=== PATIENT | female | born 1975 | race Caucasian/White ===

== ENCOUNTER 2016-04-08 18:21 | Emergency (ER) | payer OTHER ==
--- NOTE | 2016-04-08 20:00 | DIAGNOSTIC IMAGING REPORT ---
PROCEDURE: XR ABD SERIES 2V ABD/1V CHEST INDICATION: ABDOMINAL PAIN TECHNIQUE: AP supine and upright views of the abdomen with single view of the chest. COMPARISON: Abdomen 02/08/2015 and Chest x-ray 06/02/2013 FINDINGS: CHEST: Lungs are clear. Normal cardiovascular structures. Bony thorax is unremarkable. ABDOMEN: Bowel gas pattern is normal. Moderate stool. Cholecystectomy. No soft-tissue masses or unusual calcifications. No evidence of free air. Osseous structures are unremarkable. IMPRESSION: 1. Moderate stool 2. Cholecystectomy 3. Negative chest
--- NOTE | 2016-04-08 20:57 | ED NURSING NOTES ---
Clinical Report - Nurses [facility] [address] [place] [address] 04/08/2016 18:22 Patient: SIENNA BORRERO TRIAGE Triage time 1835 PM. Acuity: LEVEL 3. Chief Complaint: ABDOMINAL PAIN and NAUSEA. Alert. No acute distress. SEPSIS SCREEN: Sepsis Screen. Negative (no infection suspected/documented). CIELO COMA SCORE: Bledsoe Coma Scale: 15- eyes open spontaneously (4); best verbal response- oriented x 4 (5); best motor response- obeys commands (6). --18:42 Kinza Byrnes R.N. 18:30 04/08/16. BP: 157/89. HR: 115. RR: 28 (labored). O2 saturation: 100% on room air. Temp: 98.5 F. Pain level now: 12/24. --18:42 Kinza Byrnes R.N. Weight: 136 kg stated. Height/Length: 66 inches Per Patient. BMI: 48.4. --18:36 Kinza Byrnes R.N. Medications Benadryl Oral 25 mg, PRN. Control Pills. Cozaar Oral 25 mg, daily. Cymbalta Oral. Fenayl fibrate 160mg daily. Fish Oil. Lantus Subcutaneous 30 units, at bedtime. Magnesium Oral. MetFORMIN HCl Oral 500 mg, 4x a day. Metoprolol Tartrate Oral 25 mg, daily. Pantoprazole Sodium Oral. Pravastatin Sodium Oral, 2 at bedtime. Roxaxin 500-1000? . Vit d. Vits multi . --18:30 Kinza Byrnes R.N. OxyCONTIN Oral. --18:47 Kinza Byrnes R.N. The following entry was struck by Kinza Byrnes R.N., 18:47 (04/08/16) Reason - other. <<STRICKEN ENTRY-- Melatonin Oral. --18:30 Kinza Byrnes R.N. --END STRIKE>>. Medication/allergy information source: the patient. --18:42 Kinza Byrnes R.N. Allergies Amitriptyline. Gabapentin. Gluten. Ibuprofen. Lyrica. Sulfa Antibiotics. Vicodin. --18:30 Kinza Byrnes R.N. History Arrived by private vehicle. Historian: patient. Accompanied by family. ( Pt states that around 4 pm today pain initiated suddenly on RUQ which now radiates to left upper quadrant with SOB/dizziness due to pain, pt states reminds her "pancreatitis" Spoke to [facility] who told them to come to ED for further evaluation.). This started today. Onset was abrupt. (415 PM). She has had nausea and abdominal pain. No vomiting. Last oral intake by patient was (4pm today to drink, and at 11pm to eat). Treatment FORENSIC ENGINEER: None. PAST MEDICAL HX: Immunizations: up-to-date. The patient has had a hysterectomy. SOCIAL HX: Former smoker (quit 3 years ago). Alcohol use. Patient is a recovering alcoholic. History of drug use. Is a recovering addict. No recent travel. No infectious disease exposure. No known contact with a sick individual. ABUSE ASSESSMENT: No report of abuse. SELF HARM ASSESSMENT: A self harm assessment was performed. The patient answered "no" to the question "Do you have thoughts of harming or killing yourself?" and "Have you recently had thoughts about harming or killing others?". FALL RISK ASSESSMENT: Fall risk assessment completed. No fall risk identified. NUTRITIONAL RISK ASSESSMENT: The nutritional risk assessment revealed no deficiencies. FUNCTIONAL ASSESSMENT: Functional assessment: no impairments noted. LEARNING NEEDS ASSESSMENT: The learning needs assessment revealed no barriers. SKIN INTEGRITY ASSESSMENT: Skin integrity risk assessment completed. No skin integrity risk identified. --18:42 Kinza Byrnes R.N. PROBLEMS: Nail Avulsion. Subungual Hematoma. Crush Injury. TMJ Syndrome. Lumbar Radiculopathy. Gastritis. Gastroenteritis. Vomiting. Abdominal Pain. Gallstone(s). Pancreatitis. Headache. Hypertension. Sinusitis. Arthritis. Back Injury. Obesity. Gastroesophageal Reflux Disease. Lifestyle / Substance Problems. UTI - Urinary Tract Infection. Pneumonia. Changed Mental Status. Burn. Tetanus Status. Back Pain. Hypercholesterolemia. Diabetes Mellitus. Immunizations. LNMP - Last Normal Menstrual Period. --18:31 Kinza Byrnes R.N. Allergic Reaction [RuleOut]. --18:31 Kinza Byrnes R.N. ADDITIONAL SURGERIES: Adenoidectomy. Back Surgery. Cholecystectomy. . Hysterectomy. Knee. Knee Surgery. Lt wrist surgery. Oophorectomy. Rt wrist surgery. Tympanostomy Tubes. --18:31 Kinza Byrnes R.N. Interventions ID band on patient. --18:42 Kinza Byrnes R.N. PHYSICAL ASSESSMENT To room via wheelchair. GENERAL / NEURO / PSYCH: Alert. Oriented X 4. Appears in no acute distress. Appears in pain and anxious. HEENT: Mucous membranes are pink. RESPIRATORY: Respirations not labored. Breath sounds within normal limits. CVS: Capillary refill less than 2 seconds. GI / : The patient has had nausea. Abdomen soft and nontender. Abdominal tenderness in the upper abdomen, right upper quadrant, epigastric area and left upper quadrant. Bowel sounds within normal limits. SKIN: Skin is warm and dry. --18:44 Kinza Byrnes R.N. NURSING PROGRESS NOTES The initial plan of care for this patient has been created This plan of care was discussed with the patient. Patient gowned. Reassurance given. Two patient identifiers checked. Call light placed in reach. Side rails up. Brakes of bed on. --18:44 Kinza Byrnes R.N. ( RT on bedside for Blood gas blood draw). --19:03 Brielle Juarez EKG time: (19:01). EKG was performed by a tech and shown to the ED physician. --19:04 GeoffBrielle zurita 19:08 04/08/2016 Site #1 started via IV in the right forearm with an 22g angiocath; four attempts. Saline lock flushed with 10 mL saline. --19:13 Kinza Byrnes R.N. Reassurance given. Patient ID band checked for patient name, birthdate and medical record number: patient confirmed. Instructions provided to collect clean catch urine and patient verbalized understanding. Clean catch urine collected with return of yellow-colored clear urine; sample sent to lab for urinalysis. Specimen labeled in the presence of the patient. ( Difficult stick, only red top and purple top collected, lab called.). Care transferred and report given (JIMBO Perez). --19:16 Kinza Byrnes R.N. 19:16 04/08/2016 Started bag #1 1000 mL IV Fluids IV NS (Saline); at 1000 mL/hr over 1 hour(s) via site #1 --19:16 Chris Sheikh R.N. 19:19 04/08/2016 Zofran (Ondansetron HCl) IVP 4 mg given over 2 minute(s) via site #1. Allergies verified and confirmed 5 rights. IV patency established. IV site checked: no pain, redness, or swelling. IV flushed thoroughly pre- and post-medication administration. --19:19 Chris Sheikh R.N. 19:21 04/08/2016 Dilaudid (HYDROmorphone HCl PF) IVP 1 mg given over 2 minute(s) via site #1. Allergies verified, confirmed 5 rights and sedative warning given to the patient. IV patency established. IV site checked: no pain, redness, or swelling. IV flushed thoroughly pre- and post-medication administration. --19:21 Chris Sheikh R.N. 19:22. Patient transported to radiology by stretcher with tech. --19:22 Chris Sheikh R.N. 19:30. Patient returned from radiology by stretcher with tech. --19:30 Chris Sheikh R.N. Checked patient name and birthdate: patient confirmed. Blood samples drawn from the right hand with syringe and 23g butterfly by [employer] per protocol ; labeled in presence of the patient and sent to lab: ronald best. --20:12 Leeanne Naranjo 20:25. Patient ID band checked for patient name and birthdate: patient confirmed. Flu swab obtained by RN via nasal pharyngeal swab. Labeled in the presence of the patient and sent to lab. ( First contact with pt. Flu swab obtained and sent to lab. Pt assisted to bathroom via w/c, some increase in SOB noted with activity . states pain is worth with activity "hurts under the right breast really bad" also still feeling nauseated ERPA notified). --20:34 Laurence Clark R.N. Critical value relayed to ED by Bryan certified nuclear medicine technologist. Critical value received by Chris Singh EDJIMBO. Positive for Influenza A. Critical value read back. Verified lab result and patient ID. --20:52 Chris Sheikh R.N. 20:56 04/08/2016 Zofran (Ondansetron HCl) IVP 4 mg given over 2 minute(s) via site #1. Allergies verified and confirmed 5 rights. IV patency established. IV site checked: no pain, redness, or swelling. IV flushed thoroughly pre- and post-medication administration. --20:56 Chris Sheikh R.N. 20:59 Tamiflu 75mg PO given. --21:00 Chris Sheikh R.N. 21:22 IV fluids placed on IV pump. --21:26 Chris Sheikh R.N. 21:35 04/08/2016 Dilaudid (HYDROmorphone HCl PF) IVP 1 mg given over 2 minute(s) via site #1. Allergies verified, confirmed 5 rights and sedative warning given to the patient. IV patency established. IV site checked: no pain, redness, or swelling. IV flushed thoroughly pre- and post-medication administration. --21:35 Chris Sheikh R.N. 21:39 04/08/2016 IV Fluids IV NS Bag Change: bag #1 infused. Total amount infused: 1000. STARTED bag #2 at 1000 mL/hr via IV pump. IV patency established. IV site checked: no pain, redness, or swelling. IV flushed thoroughly. --21:39 Chris Sheikh R.N. 22:14 04/08/2016 Dilaudid (HYDROmorphone HCl PF) IVP 1 mg given over 2 minute(s) via site #1. Allergies verified and confirmed 5 rights. IV patency established. IV site checked: no pain, redness, or swelling. IV flushed thoroughly pre- and post-medication administration. --22:14 Chris Sheikh R.N. 22:45 04/08/2016 IV Fluids IV NS Discontinued: bag #2 infused upon discharge. Total amount infused: 1000 mL. IV patency established. IV site checked: no pain, redness, or swelling. IV flushed thoroughly. --22:45 Chris Sheikh R.N. 22:50. The patient is calm and resting quietly. SKIN: Skin is warm and dry. Skin color within normal limits. --22:52 Chris Sheikh R.N. DISPOSITION / DISCHARGE 20:58 04/08/16. BP: 126/63. HR: 114. RR: 17. O2 saturation: 97%. Pain level now: 06/24. --22:43 Chris Sheikh R.N. Condition at departure: stable. No learning barriers present. Discharge instructions provided and reviewed with the patient and spouse. Reviewed medication(s) side effects, precautions, dosing and course information. Patient and spouse verbalized understanding. Written instructions provided in Telugu. The patient was discharged home and accompanied by spouse. She left the Emergency Department ambulatory and via private vehicle. Spouse driving. FALL RISK ASSESSMENT: Fall risk assessment completed. No fall risk identified. --22:43 Chris Sheikh R.N. 21:00 Patient receiving further treatment due to pt vitals. --22:43 Chris hSeikh R.N. 22:43 04/08/16. BP: 134/65. HR: 112. RR: 16. O2 saturation: 94% on room air. Pain level now: 06/24. --22:45 Chris Sheikh R.N. ( ED L[facility] [place] aware of pt pulse rate). --22:45 Chris Sheikh R.N. 22:46 04/08/2016 Site #1 removed upon discharge. Catheter intact. Bandage applied. --22:52 Chris Sheikh R.N. Departure time: 22:53. --22:53 Chris Sheikh R.N. Locked/Released at 04/08/2016 22:53 by Chris Sheikh R.N.
--- NOTE | 2016-04-08 20:57 | ED ORDER SUMMARY ---
..... Patient: SIENNA BORRERO OrderSheet [facility] VisitID: [id number] [place] [address] 40y, F Registration Date/Time: 04/08/2016 ORDER SHEET Weight: 136.0 kg (stated) Allergies: Amitriptyline, Gabapentin, Gluten, Ibuprofen, Lyrica, Sulfa Antibiotics, Vicodin GENERAL ORDERS: UA-Culture if indicated Urgent (18:39 04/08/2016 JBoardley R.N. per protocol) (18:45 EHassan R.N.) Urine Urgent (18:39 04/08/2016 JBoardley R.N. per protocol) (18:45 EHassan R.N.) Cardiac Panel Stat (18:51 04/08/2016 EKoroleva P.A.-C) (Ack 18:56 RKaruga) (19:48 RKaruga) PTT Urgent (18:51 04/08/2016 EKoroleva P.A.-C) (Ack 18:56 RKaruga) (19:48 RKaruga) PT with INR Urgent (18:51 04/08/2016 EKoroleva P.A.-C) (Ack 18:56 RKaruga) (19:48 RKaruga) Amylase Urgent (18:51 04/08/2016 EKoroleva P.A.-C) (Ack 18:56 RKaruga) (19:48 RKaruga) Lipase Urgent (18:51 04/08/2016 EKoroleva P.A.-C) (Ack 18:56 RKaruga) (19:48 RKaruga) ABG (G) Urgent (18:51 04/08/2016 EKoroleva P.A.-C) (Ack 18:56 RKaruga) (19:12 EHassan R.N.) EKG - ER Stat (18:51 04/08/2016 EKoroleva P.A.-C) (19:01 RKaruga) Abd Series 2V Abd/1V Chest Urgent (18:51 04/08/2016 EKoroleva P.A.-C) (Ack 18:56 RKaruga) (19:38 MCampbell) Rapid Influenza Screen (Nasal Pharyngeal) (n) Urgent (19:57 04/08/2016 EKoroleva P.A.-C) (k 19:59 [facility]) (20:35 DDean R.N.) - (tamiflu 75 mg po once) (20:55 04/08/2016 EKoroleva P.A.-C) (20:59 JQuivey R.N.) MEDICATION ORDERS: IV FLUIDS: IV NS : initial bolus 1000 mL (1000 mL/hr), then 1000 mL/hr for X1 (NOW); Srinivasan (18:50 04/08/2016 EKoroleva P.A.-C) (19:16 JQuivey R.N.) Dilaudid IV 1 mg (may repeat 1 mg in 15 mins from first dose, total 2 MG) (18:51 04/08/2016 EKoroleva P.A.-C) (19:21 JQuivey R.N.) Zofran IV 4 mg (NOW) (19:18 04/08/2016 JQuivey R.N. per protocol) (19:19 JQuivey R.N.) Zofran IV 4 mg (NOW) (20:56 04/08/2016 JQuivey R.N. per protocol) (20:56 JQuivey R.N.) Dilaudid IV 1 mg (NOW) (22:14 04/08/2016 JQuivey R.N. verbal order read back to EKorolerosalio P.A.-C) (22:14 JQuivey R.N.) ORDER SHEET NOTES: [Electronically signed by Chris Sheikh R.N. (22:53 04/08/2016)] [Electronically signed by Heidi MesaATran-C (23:08 04/08/2016)] [Electronically locked/signed by Chris Sheikh R.N. (22:53 04/08/2016)]
--- NOTE | 2016-04-08 20:57 | ED ORDER SUMMARY ---
..... Patient: SIENNA BORRERO OrderSheet [facility] VisitID: [id number] [place] [address] 40y, F Registration Date/Time: 04/08/2016 ORDER SHEET Weight: 136.0 kg (stated) Allergies: Amitriptyline, Gabapentin, Gluten, Ibuprofen, Lyrica, Sulfa Antibiotics, Vicodin GENERAL ORDERS: UA-Culture if indicated Urgent (18:39 04/08/2016 JBoardley R.N. per protocol) (18:45 EHassan R.N.) Urine Urgent (18:39 04/08/2016 JBoardley R.N. per protocol) (18:45 EHassan R.N.) Cardiac Panel Stat (18:51 04/08/2016 EKoroleva P.A.-C) (Ack 18:56 RKaruga) (19:48 RKaruga) PTT Urgent (18:51 04/08/2016 EKoroleva P.A.-C) (Ack 18:56 RKaruga) (19:48 RKaruga) PT with INR Urgent (18:51 04/08/2016 EKoroleva P.A.-C) (Ack 18:56 RKaruga) (19:48 RKaruga) Amylase Urgent (18:51 04/08/2016 EKoroleva P.A.-C) (Ack 18:56 RKaruga) (19:48 RKaruga) Lipase Urgent (18:51 04/08/2016 EKoroleva P.A.-C) (Ack 18:56 RKaruga) (19:48 RKaruga) ABG (G) Urgent (18:51 04/08/2016 EKoroleva P.A.-C) (Ack 18:56 RKaruga) (19:12 EHassan R.N.) EKG - ER Stat (18:51 04/08/2016 EKoroleva P.A.-C) (19:01 RKaruga) Abd Series 2V Abd/1V Chest Urgent (18:51 04/08/2016 EKoroleva P.A.-C) (Ack 18:56 RKaruga) (19:38 MCampbell) Rapid Influenza Screen (Nasal Pharyngeal) (n) Urgent (19:57 04/08/2016 EKoroleva P.A.-C) (k 19:59 [facility]) (20:35 DDean R.N.) - (tamiflu 75 mg po once) (20:55 04/08/2016 EKoroleva P.A.-C) (20:59 JQuivey R.N.) MEDICATION ORDERS: IV FLUIDS: IV NS : initial bolus 1000 mL (1000 mL/hr), then 1000 mL/hr for X1 (NOW); Srinivsaan (18:50 04/08/2016 EKoroleva P.A.-C) (19:16 JQuivey R.N.) Dilaudid IV 1 mg (may repeat 1 mg in 15 mins from first dose, total 2 MG) (18:51 04/08/2016 EKoroleva P.A.-C) (19:21 JQuivey R.N.) Zofran IV 4 mg (NOW) (19:18 04/08/2016 JQuivey R.N. per protocol) (19:19 JQuivey R.N.) Zofran IV 4 mg (NOW) (20:56 04/08/2016 JQuivey R.N. per protocol) (20:56 JQuivey R.N.) Dilaudid IV 1 mg (NOW) (22:14 04/08/2016 JQuivey R.N. verbal order read back to EKorolerosalio P.A.-C) (22:14 JQuivey R.N.) ORDER SHEET NOTES: [Electronically signed by Chris Sheikh R.N. (22:53 04/08/2016)] [Electronically signed by Heidi MesaATran-C (23:08 04/08/2016)] [Electronically locked/signed by Chris Sheikh R.N. (22:53 04/08/2016)]
--- NOTE | 2016-04-08 20:57 | ED CLINICAL REPORT ---
Clinical Report - Physicians/Mid Levels [facility] [address] [place] [address] 04/08/2016 18:22 [id number] Time Seen: 19:47 Apr 08 2016. Arrived- By private vehicle. Historian- patient. HISTORY OF PRESENT ILLNESS Chief Complaint: ABDOMINAL PAIN. This started today and is still present. It is described as "pain" and it is described as located in the upper abdomen and in the left abdomen. The patient has had nausea and loss of appetite. No vomiting. (abdominal pain prior to arrival, with nausea no emesis. No fevers, no shortness of breath. No back pain. Glucose has been under control recently. History of similar pain with pancreatitis.). REVIEW OF SYSTEMS No constipation, black stools, hematemesis, difficulty with urination or urinary frequency. No fever, headache, sore throat, chest pain or difficulty breathing. No chills. All systems otherwise negative, except as recorded above. SOCIAL HISTORY Former smoker. Alcohol use. Patient is a recovering alcoholic. History of drug use. Is a recovering addict. ADDITIONAL NOTES The nursing notes have been reviewed. PHYSICAL EXAM Vital Signs: 04/08/2016 18:30 BP: 157/89. HR: 115. RR: 28. O2 saturation: 100%. Temp: 98.5 F. Pain level now: 10/10. Appearance: Alert. ENT: Ears normal. Nose normal. Neck: Normal inspection. Neck supple. No carotid bruit or lymphadenopathy. CVS: Tachycardia. Heart sounds normal. Respiratory: No respiratory distress. No respiratory distress. Breath sounds normal. Chest nontender. Abdomen: Soft and nontender. Bowel sounds normal. No abdominal tenderness or rebound tenderness. Skin: Skin warm. Normal skin color. Neuro: Oriented X 3. No motor deficit. LABS, X-RAYS, AND EKG EKG: EKG time: (1900). No acute process. No acute ischemia. Normal EKG. Rate: 98. Normal P waves. Normal DEWEY. Normal QRS complex. Normal axis. Normal ST and T waves and QT. The study has been interpreted contemporaneously. The study has been independently viewed by me. The EKG appears to be a good tracing. KUB: (IMPRESSION: 1. Moderate stool 2. Cholecystectomy 3. Negative chest Electronically Final signed by:Jun Quinteros MD 04/08/2016 8:00:31 PM). Laboratory Tests: UA-Culture if indicated: (NAOMI: 04/08/2016 18:35) ( [facility]08[facility] 18:57) Final results Test Result Flag Units (Reference) URINE COLOR YELLOW URINE APPEARANCE CLEAR URINE GLUCOSE 2+ (NEGATIVE) URINE BILIRUBIN NEGATIVE (NEGATIVE) URINE KETONE NEGATIVE (NEGATIVE) URINE SPECIFIC GRAVITY 1.010 (1.010-1.030) URINE PH 6.0 (5.0-8.0) URINE PROTEIN NEGATIVE (NEGATIVE) URINE UROBILINOGEN 0.2 EU/dL (0.2-1.0) URINE NITRITE NEGATIVE (NEGATIVE) URINE BLOOD NEGATIVE (NEGATIVE) URINE LEUK ESTERASE NEGATIVE (NEGATIVE) URINE RBC 0-1 rbc/hpf (0-1) URINE WBC 1-3 wbc/hpf (0-1) URINE EPITHELIAL CELLS 3-5 EPI/hpf (0-5) URINE BACTERIA TRACE (<1+) (NONE SEEN) URINE COMMENT CULT NOT INDICATED URINE CULTURES ARE SET-UP BASED ON THE FOLLOWING CRITERIA:POSITIVE NITRITEPOSITIVE LEUKOCYTE ESTERASEGREATER THAN 10 WHITE BLOOD CELLSMODERATE (2+) OR GREATER BACTERIA Urine: (NAOMI: 04/08/2016 18:35) ( [facility] 04/08/2016 18:47) Final results Test Result Flag Units (Reference) URINE NEGATIVE CBC w Diff: (NAOMI: 04/08/2016 19:10) ( [facility] 04/08/2016 19:22) Final results Test Result Flag Units (Reference) WHITE BLOOD COUNT 13.1 H K/uL (4.5-11.5) RED BLOOD COUNT 4.06 M/uL (4.00-5.20) HEMOGLOBIN 12.6 gm/dL (12.0-16.0) HEMATOCRIT 38.1 % (36.0-46.0) MEAN CELL VOLUME 94 fL (80-100) MEAN CORPUSCULAR HGB 31 pg (26-34) MEAN CORPUSCULAR HGB CONC 33 g/dL (31-37) RED CELL DISTRIBUTION WIDTH 13.5 % (11.6-14.8) PLATELET COUNT 363 K/uL (150-400) NEUTROPHIL % 80.4 H % (50-75) LYMPH % 14.9 L % (25-40) MONO % 3.6 % (3-14) EOSINOPHIL % 0 % (0-4) BASOPHIL % 1.1 % (0-2) PT with INR: (NAOMI: 04/08/2016 19:46) ( [facility] 04/08/2016 20:24) Final results Test Result Flag Units (Reference) INR 1.0 (0.8-1.2) Low Intensity Therapy: INR 1.5-2.0 PT range 18.5-23.1Mod.Intensity Therapy: INR 2.0-3.0 PT range 23.1-31.5High Intensity Therapy: INR 2.5-3.5 PT range 27.4-35.5High Intensity Therapy 2: INR 3.0-4.0 PT range 31.5-39.3 APTT 26 SECONDS (24-34) CHEM 13 PANEL: (NAOMI: 04/08/2016 19:10) ( [facility] 04/08/2016 19:43) Final results Test Result Flag Units (Reference) GLUCOSE 164 H mg/dL (70-110) BUN 14 mg/dL (7-18) CREATININE 0.9 mg/dL (0.6-1.3) Estimated GFR >60 mL/min Estimated GFR- >60 mL/min Note: Persistent reduction over 3 months in eGFR<60 mL/min/1.73 m2 defines CKD. Patients with eGFR values>=60 mL/min/1.73 m2 may also have CKD if evidence ofpersistent proteinuria. Additional information may be foundat www.kidney.org. SODIUM 140 mmol/L (136-145) POTASSIUM 4.0 mmol/L (3.5-5.1) CHLORIDE 102 mmol/L (98-107) CARBON DIOXIDE 24 mmol/L (21-32) CALCIUM 10.4 H mg/dL (8.5-10.1) TOTAL PROTEIN 7.1 g/dL (6.4-8.2) ALBUMIN 3.6 g/dL (3.3-5.0) BILIRUBIN, TOTAL 0.2 mg/dL (0.0-1.0) ALKALINE PHOSPHATASE 46 U/L (46-116) AST (SGOT) 28 U/L (15-37) ALT (SGPT) 39 U/L (12-78) MAGNESIUM 1.4 L mg/dL (1.8-2.4) LIPASE 72 L U/L (73-393) AMYLASE 20 L U/L (25-115) CPK 102 U/L (24-260) TROPONIN I <0.05 ng/mL (0.00-1.5) TROPONIN REFERENCE RANGE:<0.1 NEGATIVE0.1-1.5 INDETERMINANT>1.5 POSITIVE ABG: (NAOMI: 04/08/2016 18:51) ( [facility] 04/08/2016 19:15) IP Test Result Flag Units (Reference) ARTERIAL BLOOD GAS pH 7.51 H (7.35-7.45) ABG PCO2 28.4 L mmHg (35-45) ABG PO2 91.0 mmHg (80.0-100.0) ABG BASE EXCESS 0.1 H mmol/L (-6.0--6.0) ABG HCO3 22.8 mmol/L (20.0-26.0) ABG TCO2 23.7 L mmol/L (24.0-30.0) ABG HbDuS5i 25.4 H mmHg (7.0-14.0) *NOTE: Normal rangeis based on aFIO2 of 21% ABG SAT O2 99.0 % (95.1-100.0) ABG TOTAL HEMOGLOBIN 12.0 g/dL (12.0-16.0) ABG CARBOXYHEMOGLOBIN 1.3 % (0.5-1.5) COMMENTS ROOM AIR Rapid Influenza Screen: (NAOMI: 04/08/2016 20:26) ( [facility] 04/08/2016 20:52) Final results SPECIMEN DESCRIPTION: N Test Result Flag Units (Reference) RAPID INFLUENZA SCREEN CALLED TO: Aneta JAEGER -- DATE: 04/08/16 INFLUENZA A: POSITIVE SCREEN FOR INFLUENZA A INFLUENZA B: NEGATIVE SCREEN FOR INFLUENZA B RAPID INFLUENZA "A" POSITIVE. . PROGRESS AND PROCEDURES Course of Care: Pt in the er stable. Pt with no fevers/ chills. Signs of acute influenza a. Given 2 L of ns. Pt is without any acute signs of dka. Pt with no signs of pancreatitis. EKG stable. CXR/ abd with no signs of acute surgical abdomen. 04/08/2016 22:43 BP: 134/65. HR: 112. RR: 16. O2 saturation: 94%. Pain level now: 4/10. Patient is stable. Physical exam findings are improved. Symptoms better. Patient/family counseled. Differential Diagnosis: I considered gastritis, acute appendicitis, mesenteric lymphadenitis, diverticulitis, small bowel obstruction, adhesions, biliary colic, hepatitis, splenic injury, splenic rupture, intraabdominal abscess, urinary tract infection, cystitis, prostatitis, ureterolithiasis, ovarian cyst, ovarian torsion, , ectopic , pelvic inflammatory disease, pelvic abscess, Mittelschmerz syndrome, endometriosis, abdominal aortic aneurysm, myocardial infarction and diabetic ketoacidosis as a possible cause of abdominal pain in this patient. This is a partial list of diagnoses considered. Disposition: Discharged. Condition: good. CLINICAL IMPRESSION Diabetes. Hypertension. Influenza type A. INSTRUCTIONS Drink plenty of fluids. Prescription Medications: Zofran (orally disintegrating tablets) 4 mg: take 1-2 orally every 6 hours as needed for nausea. Dispense fifteen (15). No refill. Substitution is permissible. Tamiflu 75 mg: take 1 capsule orally every 12 hours for 5 days. Dispense ten (10). No refills. Substitution is permissible. Follow-up: Follow up with your doctor in three days. (Electronically signed by Heidi Mesa P.A.-C 04/08/2016 23:08)
--- NOTE | 2016-04-08 23:09 | ED DISCHARGE INSTRUCTIONS ---
Patient: SIENNA BORRERO General Instructions [facility] VisitID: [id number] [place] [address] 40y, F Registration Date/Time: 04/08/2016 Diabetes. Hypertension. Influenza type A. INSTRUCTIONS Drink plenty of fluids. Prescription Medications: Zofran (orally disintegrating tablets) 4 mg: take 1-2 orally every 6 hours as needed for nausea. Dispense fifteen (15). No refill. Substitution is permissible. Tamiflu 75 mg: take 1 capsule orally every 12 hours for 5 days. Dispense ten (10). No refills. Substitution is permissible. Follow-up: Follow up with your doctor in three days. ADDITIONAL INFORMATION Influenza (Adult) Influenza, also called the flu, is a viral illness that affects the air passages of the lungs. It differs from the common cold. It is highly contagious. It may be spread through the air by coughing and sneezing or by direct contact (touching the sick person and then touching your own eyes, nose or mouth). Illness starts 1-3 days after exposure and lasts for 1-2 weeks. Antibiotics are usually not needed unless a complication appears (ear or sinus infection or pneumonia). Symptoms may be mild or severe and can include extreme tiredness (wanting to stay in bed all day), chills, fevers, muscle aching, soreness with eye movement, headache, and a dry, hacking cough. Home Care: Avoid exposure to cigarette smoke (yours or others). Tylenol or ibuprofen (Advil) will help fever, muscle aching, and headache. To avoid risk of liver injury, aspirin should not be used in children and teenagers under 18 with this illness. Nausea and loss of appetite are common. A light diet is recommended. Avoid dehydration by drinking 6-8 glasses of fluids per day (water, sport drinks like Gatorade, soft drinks without caffeine, juices, tea, soup, etc.). Extra fluids will also help loosen secretions in the nose and lungs. [id number] cold medicines will not shorten the duration of the illness but may be helpful for the following symptoms: cough (Robitussin DM); sore throat (Chloraseptic lozenges or spray); nasal and sinus congestion (Actifed or Sudafed). [NOTE: Do not use decongestants if you have high blood pressure.] Stay home until your fever has been gone for at least 24 hours (without the use of fever-reducing medications such as ibuprofen). Follow Up with your doctor or as directed by our staff if you are not improving over the next week. Note: If you are age 65 or older, or if you have chronic asthma or COPD, we recommend a pneumococcal vaccinationevery five years. All adults shouldreceive a yearly influenza vaccination every . Ask your doctor about this. Get Prompt Medical Attention if any of the following occur: Cough with lots of colored sputum (mucus) or blood in your sputum Chest pain, shortness of breath, wheezing, or difficulty breathing Severe headache, face, neck or ear pain New rash Fever of 100.4F (38C) oral or higher, not better with fever medication Confusion, behavior change or seizure Severe weakness or dizziness [place] Diet A bland diet is used for patients with an upset stomach. It consists of foods that are mild and easy to digest. It is better to eat small frequent meals rather than three large meals a day. BEVERAGES OK: Fruit juices, non-caffeinated teas and coffee, non-carbonated bhakta AVOID: Carbonated beverage, caffeinated tea and coffee, all alcoholic beverages BREAD OK: Refined white, wheat or rye bread, laura or soda crackers, Lou toast, plain rolls, bagels AVOID: Whole-grain bread CEREAL OK: Refined cereals: cooked or ready to eat AVOID: Whole grain cereals and granola, or those containing bran, seeds or nuts DESSERTS OK: Peanut butter and all others except those to "avoid" AVOID: Chocolate, cocoa, coconut, popcorn, nuts, seeds, jam, marmalade FRUITS OK: Canned, cooked, frozen or fresh fruits without seeds or tough skin AVOID: Olives, skin and seeds of fruit MEATS OK: All fresh or preserved meat, fish and fowl AVOID: Any that are prepared with those spices to "avoid" CHEESE & EGGS OK: Eggs, cottage cheese, cream cheese, other cheeses AVOID: All cheeses made with those spices to "avoid" POTATOES & PASTA OK: Potato, rice, macaroni, noodles, spaghetti AVOID: None SOUPS OK: All soups without heavy seasoning AVOID: Soups made with those spices to "avoid" VEGETABLES OK: Canned, cooked, fresh or frozen mildly flavored vegetables without seeds, skins or coarse fiber AVOID: Vegetables prepared with those spices to "avoid"; skin and seeds of vegetables and those with coarse fiber SPICES OK: Salt, lemon and [place] juice, vinegar, all extracts, peggy, cinnamon, thyme, mace, allspice, paprika AVOID: [place] powder, cloves, pepper, seed spices, garlic, gravy pickles, highly seasoned salad dressings Clear Liquid Diet Clear liquids are any liquid that you can see through as well as those that are very easy to digest. This is used while the body is recovering from irritation or infection of the stomach or intestinal tract. It may also be used before special procedures or surgery. This diet is to be used no more than three days. You may include the following items. Adults Adults should drink a total of 23 quarts of liquid per day. It may be easier to drink small frequent servings rather than a few large ones. Liquids can include: Fruit juices.Strained orange juice or lemonade (no pulp), apple, grape and cranberry juice, clear fruit drinks, sports drinks Beverages.Sport drinks, sodas, mineral water (plain or flavored), tea, black coffee, liquid gelatin (add twice the recommended amount of water) Soups.Clear broth, consomm, bouillon Desserts.Plain gelatin, popsicles, fruit juice bars Children Over 2 years old The following liquids are acceptable for children over age 2: Fruit juices.Strained orange juice or lemonade (no pulp), apple, grape and cranberry juice, clear fruit drinks Beverages. Sports drinks, sodas, mineral water (plain or flavored), tea, liquid gelatin (add twice the recommended amount of water) Soups. Clear broth, consomm, bouillon Desserts. Plain gelatin, popsicles, fruit juice bars Children under 2 years old Oral rehydration fluids such are available at drug stores and most grocery stores without a prescription. Ondansetron Hydrochloride Oral tablet What is this medicine? ONDANSETRON (on FAY se chidi) is used to treat nausea and vomiting caused by chemotherapy. It is also used to prevent or treat nausea and vomiting after surgery. How should I use this medicine? Take this medicine by mouth with a glass of water. Follow the directions on your prescription label. Take your doses at regular intervals. Do not take your medicine more often than directed. Talk to your bunch maker hand regarding the use of this medicine in children. Special care may be needed. What side effects may I notice from receiving this medicine? Side effects that you should report to your doctor or health home care scheduler as soon as possible: allergic reactions like skin rash, itching or hives, swelling of the face, lips or tongue breathing problems dizziness fast or irregular heartbeat feeling faint or lightheaded, falls fever and chills swelling of the hands or feet tightness in the chest Side effects that usually do not require medical attention (report to your doctor or health home care scheduler if they continue or are bothersome): constipation or diarrhea headache What may interact with this medicine? Do not take this medicine with any of the following medications: -apomorphine -cisapride -dofetilide -dronedarone -pimozide -thioridazine -ziprasidone This medicine may also interact with the following medications: -carbamazepine -phenytoin -rifampicin -tramadol -other medicines that prolong the QT interval (cause an abnormal heart rhythm) What if I miss a dose? If you miss a dose, take it as soon as you can. If it is almost time for your next dose, take only that dose. Do not take double or extra doses. Where should I keep my medicine? Keep out of the reach of children. Store between 2 and 30 degrees C (36 and 86 degrees F). Throw away any unused medicine after the expiration date. What should I tell my health care provider before I take this medicine? They need to know if you have any of these conditions: heart disease history of irregular heartbeat liver disease low levels of magnesium or potassium in the blood an unusual or allergic reaction to ondansetron, granisetron, other medicines, foods, dyes, or preservatives or trying to get breast-feeding What should I watch for while using this medicine? Check with your doctor or health home care scheduler right away if you have any sign of an allergic reaction. You have been given the following additional information: Influenza (Adult) Diet, [place]ora (Adult) Diet, Clear Liquid Ondansetron Hydrochloride Oral tablet (Electronically signed by Heidi Mesa P.A.-C 04/08/2016 23:08)
--- NOTE | 2016-04-08 23:09 | ED MED RECONCILIATION SUMMARY ---
Patient: SIENNA BORRERO Medication Reconciliation Report [facility] VisitID: [id number] [place] [address] 40y, F Registration Date/Time: 04/08/2016 Weight: 136.0 kg Height/Length: 66 in. BMI: 48.4 ALLERGIES: Amitriptyline, Gabapentin, Gluten, Ibuprofen, Lyrica, Sulfa Antibiotics, Vicodin The patient's Home Medications are listed below: THE FOLLOWING MEDICATIONS NEED TO BE RECONCILED: Benadryl Oral 25 mg, PRN Control Pills Cozaar Oral 25 mg, daily Cymbalta Oral Fenayl fibrate 160mg daily Fish Oil Lantus Subcutaneous 30 units, at bedtime Magnesium Oral MetFORMIN HCl Oral 500 mg, 4x a day Metoprolol Tartrate Oral 25 mg, daily OxyCONTIN Oral Pantoprazole Sodium Oral Pravastatin Sodium Oral, 2 at bedtime Roxaxin 500-1000? Vit d Vits multi The source(s) of the original Home Medication information: patient The following Medications were given to the patient in the Emergency Department: IV NS IV Fluids bolus 0, then 1000 mL/hr, administered: 04/08/2016 7:16:00 PM Zofran [IVP] IVP 4 mg, administered: 04/08/2016 7:19:00 PM Dilaudid [IVP] IVP 1 mg, administered: 04/08/2016 7:21:00 PM Zofran [IVP] IVP 4 mg, administered: 04/08/2016 8:56:00 PM Dilaudid [IVP] IVP 1 mg, administered: 04/08/2016 9:35:00 PM Dilaudid [IVP] IVP 1 mg, administered: 04/08/2016 10:14:00 PM The following Medications were prescribed to the patient: Zofran (orally disintegrating tablets) 4 mg: take 1-2 orally every 6 hours as needed for nausea. Dispense fifteen (15). No refill. Substitution is permissible. -- Heidi Mesa, P.A.-C Tamiflu 75 mg: take 1 capsule orally every 12 hours for 5 days. Dispense ten (10). No refills. Substitution is permissible. -- Heidi Mesa P.A.-C
--- NOTE | 2016-04-08 23:09 | ED MED RECONCILIATION SUMMARY ---
Patient: SIENNA BORRERO Medication Reconciliation Report [facility] VisitID: [id number] [place] [address] 40y, F Registration Date/Time: 04/08/2016 Weight: 136.0 kg Height/Length: 66 in. BMI: 48.4 ALLERGIES: Amitriptyline, Gabapentin, Gluten, Ibuprofen, Lyrica, Sulfa Antibiotics, Vicodin The patient's Home Medications are listed below: THE FOLLOWING MEDICATIONS NEED TO BE RECONCILED: Benadryl Oral 25 mg, PRN Control Pills Cozaar Oral 25 mg, daily Cymbalta Oral Fenayl fibrate 160mg daily Fish Oil Lantus Subcutaneous 30 units, at bedtime Magnesium Oral MetFORMIN HCl Oral 500 mg, 4x a day Metoprolol Tartrate Oral 25 mg, daily OxyCONTIN Oral Pantoprazole Sodium Oral Pravastatin Sodium Oral, 2 at bedtime Roxaxin 500-1000? Vit d Vits multi The source(s) of the original Home Medication information: patient The following Medications were given to the patient in the Emergency Department: IV NS IV Fluids bolus 0, then 1000 mL/hr, administered: 04/08/2016 7:16:00 PM Zofran [IVP] IVP 4 mg, administered: 04/08/2016 7:19:00 PM Dilaudid [IVP] IVP 1 mg, administered: 04/08/2016 7:21:00 PM Zofran [IVP] IVP 4 mg, administered: 04/08/2016 8:56:00 PM Dilaudid [IVP] IVP 1 mg, administered: 04/08/2016 9:35:00 PM Dilaudid [IVP] IVP 1 mg, administered: 04/08/2016 10:14:00 PM The following Medications were prescribed to the patient: Zofran (orally disintegrating tablets) 4 mg: take 1-2 orally every 6 hours as needed for nausea. Dispense fifteen (15). No refill. Substitution is permissible. -- Heidi Mesa, P.A.-C Tamiflu 75 mg: take 1 capsule orally every 12 hours for 5 days. Dispense ten (10). No refills. Substitution is permissible. -- Heidi Mesa P.A.-C
--- NOTE | 2016-04-08 23:09 | ED MAR SUMMARY ---
..... Medication Administration Record [facility] [address] [facility] [place] [address] Patient: SIENNA BORRERO Visit ID: [id number] 40y, F Weight: 136.0 kg Height/Length: 66 in BMI: 48.4 ALLERGIES: Amitriptyline, Gabapentin, Gluten, Ibuprofen, Lyrica, Sulfa Antibiotics, Vicodin Start 19:16 04/08/2016 Chris Sheikh R.N., Stop 22:45 04/08/2016 Chris Sheikh R.N. Medication Administered: IV NS (SALINE), Dose: IV Fluids over 1 hour(s), Rate: 1000 mL/hr, Dispensed: 1000 mL bag, Site: #1 right forearm. Medication Ordered: IV NS : initial bolus 1000 mL (1000 mL/hr), then 1000 mL/hr for X1 (NOW); Srinivasan. Given 19:19 04/08/2016 Chris Sheikh R.N. Medication Administered: ZOFRAN [IVP] (ONDANSETRON HCL), Dose: 4 mg IVP over 2 minute(s), Site: #1 right forearm. Medication Ordered: Zofran IV 4 mg (NOW). Given 19:21 04/08/2016 Chris Sheikh R.N. Medication Administered: DILAUDID [IVP] (HYDROMORPHONE HCL PF), Dose: 1 mg IVP over 2 minute(s), Site: #1 right forearm. Medication Ordered: Dilaudid IV 1 mg (may repeat 1 mg in 15 mins from first dose, total 2 MG). Given 20:56 04/08/2016 Chris Sheikh R.N. Medication Administered: ZOFRAN [IVP] (ONDANSETRON HCL), Dose: 4 mg IVP over 2 minute(s), Site: #1 right forearm. Medication Ordered: Zofran IV 4 mg (NOW). Given 21:35 04/08/2016 Chris Sheikh R.N. Medication Administered: DILAUDID [IVP] (HYDROMORPHONE HCL PF), Dose: 1 mg IVP over 2 minute(s), Site: #1 right forearm. Medication Ordered: Dilaudid IV 1 mg (may repeat 1 mg in 15 mins from first dose, total 2 MG). Given 22:14 04/08/2016 Chris Sheikh R.N. Medication Administered: DILAUDID [IVP] (HYDROMORPHONE HCL PF), Dose: 1 mg IVP over 2 minute(s), Site: #1 right forearm. Medication Ordered: Dilaudid IV 1 mg (NOW).
--- NOTE | 2016-04-08 23:09 | ED DISCHARGE INSTRUCTIONS ---
Patient: SIENNA BORRERO General Instructions [facility] VisitID: [id number] [place] [address] 40y, F Registration Date/Time: 04/08/2016 Diabetes. Hypertension. Influenza type A. INSTRUCTIONS Drink plenty of fluids. Prescription Medications: Zofran (orally disintegrating tablets) 4 mg: take 1-2 orally every 6 hours as needed for nausea. Dispense fifteen (15). No refill. Substitution is permissible. Tamiflu 75 mg: take 1 capsule orally every 12 hours for 5 days. Dispense ten (10). No refills. Substitution is permissible. Follow-up: Follow up with your doctor in three days. ADDITIONAL INFORMATION Influenza (Adult) Influenza, also called the flu, is a viral illness that affects the air passages of the lungs. It differs from the common cold. It is highly contagious. It may be spread through the air by coughing and sneezing or by direct contact (touching the sick person and then touching your own eyes, nose or mouth). Illness starts 1-3 days after exposure and lasts for 1-2 weeks. Antibiotics are usually not needed unless a complication appears (ear or sinus infection or pneumonia). Symptoms may be mild or severe and can include extreme tiredness (wanting to stay in bed all day), chills, fevers, muscle aching, soreness with eye movement, headache, and a dry, hacking cough. Home Care: Avoid exposure to cigarette smoke (yours or others). Tylenol or ibuprofen (Advil) will help fever, muscle aching, and headache. To avoid risk of liver injury, aspirin should not be used in children and teenagers under 18 with this illness. Nausea and loss of appetite are common. A light diet is recommended. Avoid dehydration by drinking 6-8 glasses of fluids per day (water, sport drinks like Gatorade, soft drinks without caffeine, juices, tea, soup, etc.). Extra fluids will also help loosen secretions in the nose and lungs. Relf-fmz-kxyqunz cold medicines will not shorten the duration of the illness but may be helpful for the following symptoms: cough (Robitussin DM); sore throat (Chloraseptic lozenges or spray); nasal and sinus congestion (Actifed or Sudafed). [NOTE: Do not use decongestants if you have high blood pressure.] Stay home until your fever has been gone for at least 24 hours (without the use of fever-reducing medications such as ibuprofen). Follow Up with your doctor or as directed by our staff if you are not improving over the next week. Note: If you are age 65 or older, or if you have chronic asthma or COPD, we recommend a pneumococcal vaccinationevery five years. All adults shouldreceive a yearly influenza vaccination every . Ask your doctor about this. Get Prompt Medical Attention if any of the following occur: Cough with lots of colored sputum (mucus) or blood in your sputum Chest pain, shortness of breath, wheezing, or difficulty breathing Severe headache, face, neck or ear pain New rash Fever of 100.4F (38C) oral or higher, not better with fever medication Confusion, behavior change or seizure Severe weakness or dizziness [place] Diet A bland diet is used for patients with an upset stomach. It consists of foods that are mild and easy to digest. It is better to eat small frequent meals rather than three large meals a day. BEVERAGES OK: Fruit juices, non-caffeinated teas and coffee, non-carbonated bhakta AVOID: Carbonated beverage, caffeinated tea and coffee, all alcoholic beverages BREAD OK: Refined white, wheat or rye bread, laura or soda crackers, Lou toast, plain rolls, bagels AVOID: Whole-grain bread CEREAL OK: Refined cereals: cooked or ready to eat AVOID: Whole grain cereals and granola, or those containing bran, seeds or nuts DESSERTS OK: Peanut butter and all others except those to "avoid" AVOID: Chocolate, cocoa, coconut, popcorn, nuts, seeds, jam, marmalade FRUITS OK: Canned, cooked, frozen or fresh fruits without seeds or tough skin AVOID: Olives, skin and seeds of fruit MEATS OK: All fresh or preserved meat, fish and fowl AVOID: Any that are prepared with those spices to "avoid" CHEESE & EGGS OK: Eggs, cottage cheese, cream cheese, other cheeses AVOID: All cheeses made with those spices to "avoid" POTATOES & PASTA OK: Potato, rice, macaroni, noodles, spaghetti AVOID: None SOUPS OK: All soups without heavy seasoning AVOID: Soups made with those spices to "avoid" VEGETABLES OK: Canned, cooked, fresh or frozen mildly flavored vegetables without seeds, skins or coarse fiber AVOID: Vegetables prepared with those spices to "avoid"; skin and seeds of vegetables and those with coarse fiber SPICES OK: Salt, lemon and [place] juice, vinegar, all extracts, peggy, cinnamon, thyme, mace, allspice, paprika AVOID: [place] powder, cloves, pepper, seed spices, garlic, gravy pickles, highly seasoned salad dressings Clear Liquid Diet Clear liquids are any liquid that you can see through as well as those that are very easy to digest. This is used while the body is recovering from irritation or infection of the stomach or intestinal tract. It may also be used before special procedures or surgery. This diet is to be used no more than three days. You may include the following items. Adults Adults should drink a total of 23 quarts of liquid per day. It may be easier to drink small frequent servings rather than a few large ones. Liquids can include: Fruit juices.Strained orange juice or lemonade (no pulp), apple, grape and cranberry juice, clear fruit drinks, sports drinks Beverages.Sport drinks, sodas, mineral water (plain or flavored), tea, black coffee, liquid gelatin (add twice the recommended amount of water) Soups.Clear broth, consomm, bouillon Desserts.Plain gelatin, popsicles, fruit juice bars Children Over 2 years old The following liquids are acceptable for children over age 2: Fruit juices.Strained orange juice or lemonade (no pulp), apple, grape and cranberry juice, clear fruit drinks Beverages. Sports drinks, sodas, mineral water (plain or flavored), tea, liquid gelatin (add twice the recommended amount of water) Soups. Clear broth, consomm, bouillon Desserts. Plain gelatin, popsicles, fruit juice bars Children under 2 years old Oral rehydration fluids such are available at drug stores and most grocery stores without a prescription. Ondansetron Hydrochloride Oral tablet What is this medicine? ONDANSETRON (on FAY se chidi) is used to treat nausea and vomiting caused by chemotherapy. It is also used to prevent or treat nausea and vomiting after surgery. How should I use this medicine? Take this medicine by mouth with a glass of water. Follow the directions on your prescription label. Take your doses at regular intervals. Do not take your medicine more often than directed. Talk to your set off press operator regarding the use of this medicine in children. Special care may be needed. What side effects may I notice from receiving this medicine? Side effects that you should report to your doctor or health pharmacist critical care as soon as possible: allergic reactions like skin rash, itching or hives, swelling of the face, lips or tongue breathing problems dizziness fast or irregular heartbeat feeling faint or lightheaded, falls fever and chills swelling of the hands or feet tightness in the chest Side effects that usually do not require medical attention (report to your doctor or health pharmacist critical care if they continue or are bothersome): constipation or diarrhea headache What may interact with this medicine? Do not take this medicine with any of the following medications: -apomorphine -cisapride -dofetilide -dronedarone -pimozide -thioridazine -ziprasidone This medicine may also interact with the following medications: -carbamazepine -phenytoin -rifampicin -tramadol -other medicines that prolong the QT interval (cause an abnormal heart rhythm) What if I miss a dose? If you miss a dose, take it as soon as you can. If it is almost time for your next dose, take only that dose. Do not take double or extra doses. Where should I keep my medicine? Keep out of the reach of children. Store between 2 and 30 degrees C (36 and 86 degrees F). Throw away any unused medicine after the expiration date. What should I tell my health care provider before I take this medicine? They need to know if you have any of these conditions: heart disease history of irregular heartbeat liver disease low levels of magnesium or potassium in the blood an unusual or allergic reaction to ondansetron, granisetron, other medicines, foods, dyes, or preservatives or trying to get breast-feeding What should I watch for while using this medicine? Check with your doctor or health pharmacist critical care right away if you have any sign of an allergic reaction. You have been given the following additional information: Influenza (Adult) Diet, [place] (Adult) Diet, Clear Liquid Ondansetron Hydrochloride Oral tablet (Electronically signed by Heidi Mesa P.A.-C 04/08/2016 23:08)
--- NOTE | 2016-04-08 23:09 | ED MAR SUMMARY ---
..... Medication Administration Record [facility] [address] [place] [address] Patient: SIENNA BORRERO Visit ID: [id number] 40y, F Weight: 136.0 kg Height/Length: 66 in BMI: 48.4 ALLERGIES: Amitriptyline, Gabapentin, Gluten, Ibuprofen, Lyrica, Sulfa Antibiotics, Vicodin Start 19:16 04/08/2016 Chris Sheikh R.N., Stop 22:45 04/08/2016 Chris Sheikh R.N. Medication Administered: IV NS (SALINE), Dose: IV Fluids over 1 hour(s), Rate: 1000 mL/hr, Dispensed: 1000 mL bag, Site: #1 right forearm. Medication Ordered: IV NS : initial bolus 1000 mL (1000 mL/hr), then 1000 mL/hr for X1 (NOW); Srinivasan. Given 19:19 04/08/2016 Chris Sheikh R.N. Medication Administered: ZOFRAN [IVP] (ONDANSETRON HCL), Dose: 4 mg IVP over 2 minute(s), Site: #1 right forearm. Medication Ordered: Zofran IV 4 mg (NOW). Given 19:21 04/08/2016 Chris Sheikh R.N. Medication Administered: DILAUDID [IVP] (HYDROMORPHONE HCL PF), Dose: 1 mg IVP over 2 minute(s), Site: #1 right forearm. Medication Ordered: Dilaudid IV 1 mg (may repeat 1 mg in 15 mins from first dose, total 2 MG). Given 20:56 04/08/2016 Chris Sheikh R.N. Medication Administered: ZOFRAN [IVP] (ONDANSETRON HCL), Dose: 4 mg IVP over 2 minute(s), Site: #1 right forearm. Medication Ordered: Zofran IV 4 mg (NOW). Given 21:35 04/08/2016 Chris Sheikh R.N. Medication Administered: DILAUDID [IVP] (HYDROMORPHONE HCL PF), Dose: 1 mg IVP over 2 minute(s), Site: #1 right forearm. Medication Ordered: Dilaudid IV 1 mg (may repeat 1 mg in 15 mins from first dose, total 2 MG). Given 22:14 04/08/2016 Chris Sheikh R.N. Medication Administered: DILAUDID [IVP] (HYDROMORPHONE HCL PF), Dose: 1 mg IVP over 2 minute(s), Site: #1 right forearm. Medication Ordered: Dilaudid IV 1 mg (NOW).
== END 2016-04-08 22:54 | disposition home or self-care (01) ==
LOC: ED SRH 18:21
DX: E11.9 Type 2 diabetes mellitus without complications (principal); J10.1 Influenza due to other identified influenza virus with other respiratory manifestations; I10 Essential (primary) hypertension; K21.9 Gastro-esophageal reflux disease without esophagitis; Z87.891 Personal history of nicotine dependence; Z79.899 Other long term (current) drug therapy; Z79.84 Long term (current) use of oral hypoglycemic drugs; Z88.2 Allergy status to sulfonamides; Z88.8 Allergy status to other drugs, medicaments and biological substances; Z88.5 Allergy status to narcotic agent
CPT/HCPCS: 90004; 90100; 90616; 91400; 92235; 92530; 92610; 92720; 93070; 94001; 94060; 95059

== ENCOUNTER 2016-04-10 20:29 | Emergency (ER) | payer OTHER ==
--- NOTE | 2016-04-10 21:16 | ED ORDER SUMMARY ---
..... Patient: SIENNA BORRERO OrderSheet [facility] VisitID: [id number] [address] [place] [address] 40y, F Registration Date/Time: 04/10/2016 ORDER SHEET Weight: 136.0 kg (stated) Allergies: Amitriptyline, Gabapentin, Gluten, Ibuprofen, Lyrica, Sulfa Antibiotics, Vicodin GENERAL ORDERS: MEDICATION ORDERS: Valium IM 10 mg (HIGH ALERT MEDICATION, NOW) (21:01 04/10/2016 SHASHIivens A.R.N.P.) (21:52 Marianela Hung.Radhika.) IV FLUIDS: ORDER SHEET NOTES: [Electronically signed by Krupa SigalaR.N.PTran (22:44 04/10/2016)] [Electronically signed by Chris Fernandez R.N. (22:50 04/10/2016)] [Electronically locked/signed by Chris Fernandez R.N. (22:50 04/10/2016)]
--- NOTE | 2016-04-10 21:16 | ED NURSING NOTES ---
Clinical Report - Nurses [facility] [address] [place] [address] 04/10/2016 20:30 Patient: SIENNA BORRERO TRIAGE Triage time 20:38 Apr 10 2016. Acuity: LEVEL 3. Chief Complaint: (Sudden misalignment of teeth.). Alert. YAHAIRA COMA SCORE: Yahaira Coma Scale: 15- eyes open spontaneously (4); best verbal response- oriented x 4 (5); best motor response- obeys commands (6). --20:49 Chris Fernandez R.N. 20:38 04/10/16. BP: 179/110. HR: 109. RR: 18. O2 saturation: 97% on room air. Temp: 99 F. Pain level now: 7/10. Additional comments: Jaw. --20:49 Chris Fernandez R.N. Weight: 136 kg stated. Height/Length: 66 inches Per Patient. BMI: 48.4. --20:46 Chris Fernandez R.N. Medications OxyCODONE HCl Oral 5 mg 1/2 tab , 4x a day. --20:41 Chris Fernandez R.N. Benadryl Oral 25 mg, PRN. Control Pills. Cozaar Oral 25 mg, daily. Cymbalta Oral. Fenayl fibrate 160mg daily. Fish Oil. Lantus Subcutaneous 30 units, at bedtime. --20:41 Chris Fernandez R.N. Magnesium Oral. MetFORMIN HCl Oral 500 mg, 4x a day. Metoprolol Tartrate Oral 25 mg, daily. Pantoprazole Sodium Oral. Pravastatin Sodium Oral, 2 at bedtime. Roxaxin 500-1000? . Vit d. Vits multi . --20:41 Chris Fernandez R.N. Allergies Amitriptyline. Definite Moderate(rash) Gabapentin. Definite Moderate(hives) Gluten. Possible Moderate Ibuprofen. Possible Moderate (Ulcers) Lyrica. Definite Moderate(rash) Sulfa Antibiotics. Definite Moderate(itching) Vicodin. --20:41 Chris Fernandez R.N. History Arrived by private vehicle. Historian: patient. Accompanied by family. ( Sudden misalignment of teeth. Pt states that she has TMJ and was eating olives, heard a sudden "click" in her jaw and now and now her teeth are out of alignment.). Onset. (about 4 hours ago). Treatment ASSISTANT ACCOUNT EXECUTIVE: Applied ice. Symptoms did not improve after treatment. PAST MEDICAL HX: Immunizations: up-to-date. The patient has had a hysterectomy. SOCIAL HX: Former smoker, end date 1986. No alcohol use or drug use. No infectious disease exposure. ABUSE ASSESSMENT: No report of abuse. FALL RISK ASSESSMENT: Fall risk assessment completed. No fall risk identified. NUTRITIONAL RISK ASSESSMENT: The nutritional risk assessment revealed no deficiencies. FUNCTIONAL ASSESSMENT: Functional assessment: no impairments noted. LEARNING NEEDS ASSESSMENT: The learning needs assessment revealed no barriers. SKIN INTEGRITY ASSESSMENT: Skin integrity risk assessment completed. No skin integrity risk identified. --20:49 Chris Fernandez R.N. PROBLEMS: Nail Avulsion. TMJ Syndrome. Lumbar Radiculopathy. Gastritis. Gastroenteritis. Vomiting. Abdominal Pain. Pancreatitis. Headache. Hypertension. Arthritis. Back Injury. Obesity. Gastroesophageal Reflux Disease. Lifestyle / Substance Problems. UTI - Urinary Tract Infection. Pneumonia. Changed Mental Status. Burn. Tetanus Status. Back Pain. Hypercholesterolemia. Diabetes Mellitus. LNMP - Last Normal Menstrual Period. --20:44 Chris Fernandez R.N. Allergic Reaction [RuleOut]. --20:44 Chris Fernandez R.N. ADDITIONAL SURGERIES: Adenoidectomy. Back Surgery. Cholecystectomy. . Hysterectomy. Knee Surgery. Lt wrist surgery. Oophorectomy. Rt wrist surgery. Tympanostomy Tubes. --20:45 Chris Fernandez R.N. Interventions ID and allergy band on patient. To treatment room. --20:49 Chris Fernandez R.N. PHYSICAL ASSESSMENT Ambulatory to room. GENERAL / NEURO / PSYCH: Alert. Oriented X 4. Appears in pain. HEENT: No facial asymmetry noted. Mucous membranes are pink. RESPIRATORY: Respirations not labored. CVS: Cardiac rhythm: sinus tachycardia. Capillary refill less than 2 seconds. Pulses within normal limits. GI / : Abdomen soft and nontender. SKIN: Skin intact. Skin is warm and dry. Normal skin turgor. --20:51 Chris Fernandez R.N. NURSING PROGRESS NOTES Reassurance given. Patient identifiers checked. Call light placed in reach. Side rails up x 1. Bed placed in lowest position. Brakes of bed on. Patient ready for evaluation- chart flagged and ED physician and CARDROOM SUPERVISOR notified. --20:51 Chris Fernandez R.N. 21:47 04/10/2016 Valium (Diazepam) IM 10 mg given. Given in the left ventral gluteus. Allergies verified, confirmed 5 rights and sedative warning given to the patient. --21:52 Chris Fernandez R.N. DISPOSITION / DISCHARGE 21:50 04/10/16. BP: 144/84. HR: 102. RR: 18. O2 saturation: 97% on room air. Temp: 98.7 F. Pain level now: 06/24. Additional comments: PAIN IN JAW. --22:45 Chris Fernandez R.N. Departure time: 2200. --22:45 Chris Fernandez R.N. 22:00. Condition at departure: improved. No learning barriers present. Discharge instructions provided and reviewed with the patient and the patient left prior to discharge education being provided. Reviewed medication(s) (prescription given to pt). Reviewed referral to a dentist and an ear, nose, and throat specialist (contracts law professor) for followup. Patient verbalized understanding. Written instructions provided in Scottish. The patient was discharged by the nurse practitioner. She was discharged home and accompanied by spouse. She left the Emergency Department ambulatory and via private vehicle. Spouse driving. --22:49 Chris Fernandez R.N. Locked/Released at 04/10/2016 22:50 by Chris Fernandez R.N.
--- NOTE | 2016-04-10 21:16 | ED CLINICAL REPORT ---
Clinical Report - Physicians/Mid Levels [facility] [address] [place] [address] 04/10/2016 20:30 Patient: SIENNA BORRERO Time Seen: 2045; upon arrival, initial patient contact, initial documentation, patient care assumed. Arrived- By private vehicle. Historian- patient. RETURN VISIT: recently seen in this ED by another ED physician. Seen now for a new unrelated complaint. HISTORY OF PRESENT ILLNESS Chief Complaint: DENTAL PAIN. This started just prior to arrival and is still present. No sore throat, mouth sores, ear pain or toothache. No swollen jaw or face or facial pain. She has had nasal congestion and a nasal discharge. She has had severe right jaw pain. (says she was eating something earlier today and her jaw locked up, has done this before, and she is supposed to see dental specialist for tmj and bite guard, says she doesn't want any pain meds, because she sees pain management already, just wants a muscle relaxer). Similar symptoms previously: Chronically, as bad. Recent medical care: The patient was seen recently at this facility in the emergency department and a clinic. ( txed here 04/08 for abd pain and dx with flu a, went to earlier today for the jaw issue, asked for muscle relaxer and they wouldn't give me one). REVIEW OF SYSTEMS The patient has had a cough. No difficulty breathing, chest pain or abdominal pain. All systems otherwise negative, except as recorded above. PAST HISTORY See nurses notes. PROBLEMS: Nail Avulsion. TMJ Syndrome. Lumbar Radiculopathy. Gastritis. Gastroenteritis. Vomiting. Abdominal Pain. Pancreatitis. Headache. Hypertension. Arthritis. Back Injury. Obesity. Gastroesophageal Reflux Disease. Lifestyle / Substance Problems. UTI - Urinary Tract Infection. Pneumonia. Changed Mental Status. Burn. Tetanus Status. Back Pain. Hypercholesterolemia. Diabetes Mellitus. LNMP - Last Normal Menstrual Period. --20:44 Chris Fernandez R.N. Allergic Reaction [RuleOut]. --20:44 Chris Fernandez R.N. ADDITIONAL SURGERIES: Adenoidectomy. Back Surgery. Cholecystectomy. . Hysterectomy. Knee Surgery. Lt wrist surgery. Oophorectomy. Rt wrist surgery. Tympanostomy Tubes. --20:45 Chris Fernandez R.N. SOCIAL HISTORY Former smoker. Alcohol use. Patient is a recovering alcoholic. History of drug use: cocaine, methamphetamines, marijuana. Is a recovering addict. No recent travel. Is a local resident. FAMILY HISTORY Negative. ADDITIONAL NOTES The nursing notes have been reviewed with agreement regarding the chief complaint, HPI, ROS, PMH and patient medications and allergies. PHYSICAL EXAM Vital Signs: 04/10/2016 20:38 BP: 179/110. HR: 109. RR: 18. O2 saturation: 97%. Temp: 99 F. Pain level now: 09/23. Have been reviewed as abnormal and appear to be correct. Blood pressure: bp checked again during exam 180/80- hypertensive. Tachycardic. Respiratory rate normal. Temperature normal. Oxygen saturation normal. Appearance: Alert. No acute distress. Head: Normal external inspection. Eyes: Pupils equal, round and reactive to light. Conjunctivae and eyelids normal. ENT: Severe, extensive dental decay. Moderate dental tenderness (R tmj tenderness). Mild trismus present. Ears normal. Nose normal. Trismus present. Pharynx normal. Lips normal. Gums normal. Uvula midline. (pt unable to open her mouth fully). Neck: Normal inspection. Trachea midline. No adenopathy. Thyroid normal. Neck supple. Respiratory: No respiratory distress. Abdomen: Moderately obese. Skin: Normal skin color. No rash. Normal skin turgor. Extremities: Extremities exhibit normal ROM. Extremities nontender. Neuro: Oriented X 3. No motor deficit. No sensory deficit. Reflexes normal. PROGRESS AND PROCEDURES Patient counseled in person regarding the patient's stable condition and diagnosis. 21:15. Differential Diagnosis: Other possible considerations: substance abuse, dental pain, caries, tmj, lock jaw. Above considerations are based on history and physical exam. Differential diagnosis was discussed with patient. Disposition: Discharged home in good and improved condition (21:15). Condition: good and stable. 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 INSTRUCTIONS Warnings: GENERAL WARNINGS: Return or contact your physician immediately if your condition worsens or changes unexpectedly, if not improving as expected, or if other problems arise. Specifically return if problem worsens. Prescription Medications: Flexeril 10 mg: Take 1 orally every 8 hours as needed for muscle spasm. Dispense twenty (20). No refills. Substitution is permissible. Follow-up: Follow up with a dentist and an ear, nose and throat physician (an aircraft mechanic electrical and radio) in about weeks even if well. Call for an appointment. Summary of care provided to patient. Understanding of the discharge instructions verbalized by patient. (Electronically signed by Krupa Sigala A.R.NTranP. 04/10/2016 22:44)
--- NOTE | 2016-04-10 21:16 | ED NURSING NOTES ---
Clinical Report - Nurses [facility] [address] [place] [address] 04/10/2016 20:30 Patient: SIENNA BORRERO TRIAGE Triage time 20:38 Apr 10 2016. Acuity: LEVEL 3. Chief Complaint: (Sudden misalignment of teeth.). Alert. YAHAIRA COMA SCORE: Yahaira Coma Scale: 15- eyes open spontaneously (4); best verbal response- oriented x 4 (5); best motor response- obeys commands (6). --20:49 Chris Fernandez R.N. 20:38 04/10/16. BP: 179/110. HR: 109. RR: 18. O2 saturation: 97% on room air. Temp: 99 F. Pain level now: 7/10. Additional comments: Jaw. --20:49 Chris Fernandez R.N. Weight: 136 kg stated. Height/Length: 66 inches Per Patient. BMI: 48.4. --20:46 Chris Fernandez R.N. Medications OxyCODONE HCl Oral 5 mg 1/2 tab , 4x a day. --20:41 Chris Fernandez R.N. Benadryl Oral 25 mg, PRN. Control Pills. Cozaar Oral 25 mg, daily. Cymbalta Oral. Fenayl fibrate 160mg daily. Fish Oil. Lantus Subcutaneous 30 units, at bedtime. --20:41 Chris Fernandez R.N. Magnesium Oral. MetFORMIN HCl Oral 500 mg, 4x a day. Metoprolol Tartrate Oral 25 mg, daily. Pantoprazole Sodium Oral. Pravastatin Sodium Oral, 2 at bedtime. Roxaxin 500-1000? . Vit d. Vits multi . --20:41 Chris Fernandez R.N. Allergies Amitriptyline. Definite Moderate(rash) Gabapentin. Definite Moderate(hives) Gluten. Possible Moderate Ibuprofen. Possible Moderate (Ulcers) Lyrica. Definite Moderate(rash) Sulfa Antibiotics. Definite Moderate(itching) Vicodin. --20:41 Chris Fernandez R.N. History Arrived by private vehicle. Historian: patient. Accompanied by family. ( Sudden misalignment of teeth. Pt states that she has TMJ and was eating olives, heard a sudden "click" in her jaw and now and now her teeth are out of alignment.). Onset. (about 4 hours ago). Treatment ELECTRICAL TESTER BATTERY: Applied ice. Symptoms did not improve after treatment. PAST MEDICAL HX: Immunizations: up-to-date. The patient has had a hysterectomy. SOCIAL HX: Former smoker, end date 1986. No alcohol use or drug use. No infectious disease exposure. ABUSE ASSESSMENT: No report of abuse. FALL RISK ASSESSMENT: Fall risk assessment completed. No fall risk identified. NUTRITIONAL RISK ASSESSMENT: The nutritional risk assessment revealed no deficiencies. FUNCTIONAL ASSESSMENT: Functional assessment: no impairments noted. LEARNING NEEDS ASSESSMENT: The learning needs assessment revealed no barriers. SKIN INTEGRITY ASSESSMENT: Skin integrity risk assessment completed. No skin integrity risk identified. --20:49 Chris Fernandez R.N. PROBLEMS: Nail Avulsion. TMJ Syndrome. Lumbar Radiculopathy. Gastritis. Gastroenteritis. Vomiting. Abdominal Pain. Pancreatitis. Headache. Hypertension. Arthritis. Back Injury. Obesity. Gastroesophageal Reflux Disease. Lifestyle / Substance Problems. UTI - Urinary Tract Infection. Pneumonia. Changed Mental Status. Burn. Tetanus Status. Back Pain. Hypercholesterolemia. Diabetes Mellitus. LNMP - Last Normal Menstrual Period. --20:44 Chris Fernandez R.N. Allergic Reaction [RuleOut]. --20:44 Chris Fernandez R.N. ADDITIONAL SURGERIES: Adenoidectomy. Back Surgery. Cholecystectomy. . Hysterectomy. Knee Surgery. Lt wrist surgery. Oophorectomy. Rt wrist surgery. Tympanostomy Tubes. --20:45 Chris Fernandez R.N. Interventions ID and allergy band on patient. To treatment room. --20:49 Chris Fernandez R.N. PHYSICAL ASSESSMENT Ambulatory to room. GENERAL / NEURO / PSYCH: Alert. Oriented X 4. Appears in pain. HEENT: No facial asymmetry noted. Mucous membranes are pink. RESPIRATORY: Respirations not labored. CVS: Cardiac rhythm: sinus tachycardia. Capillary refill less than 2 seconds. Pulses within normal limits. GI / : Abdomen soft and nontender. SKIN: Skin intact. Skin is warm and dry. Normal skin turgor. --20:51 Chris Fernandez R.N. NURSING PROGRESS NOTES Reassurance given. Patient identifiers checked. Call light placed in reach. Side rails up x 1. Bed placed in lowest position. Brakes of bed on. Patient ready for evaluation- chart flagged and ED physician and TESTING DIRECTOR notified. --20:51 Chris Fernandez R.N. 21:47 04/10/2016 Valium (Diazepam) IM 10 mg given. Given in the left ventral gluteus. Allergies verified, confirmed 5 rights and sedative warning given to the patient. --21:52 Chris Fernandez R.N. DISPOSITION / DISCHARGE 21:50 04/10/16. BP: 144/84. HR: 102. RR: 18. O2 saturation: 97% on room air. Temp: 98.7 F. Pain level now: 06/24. Additional comments: PAIN IN JAW. --22:45 Chris Fernandez R.N. Departure time: 2200. --22:45 Chris Fernandez R.N. 22:00. Condition at departure: improved. No learning barriers present. Discharge instructions provided and reviewed with the patient and the patient left prior to discharge education being provided. Reviewed medication(s) (prescription given to pt). Reviewed referral to a dentist and an ear, nose, and throat specialist (dumper bulk system) for followup. Patient verbalized understanding. Written instructions provided in Micronesian. The patient was discharged by the nurse practitioner. She was discharged home and accompanied by spouse. She left the Emergency Department ambulatory and via private vehicle. Spouse driving. --22:49 Chris Fernandez R.N. Locked/Released at 04/10/2016 22:50 by Chris Fernandez R.N.
--- NOTE | 2016-04-10 21:16 | ED ORDER SUMMARY ---
..... Patient: SIENNA BORRERO OrderSheet [facility] VisitID: [id number] [address] [place] [address] 40y, F Registration Date/Time: 04/10/2016 ORDER SHEET Weight: 136.0 kg (stated) Allergies: Amitriptyline, Gabapentin, Gluten, Ibuprofen, Lyrica, Sulfa Antibiotics, Vicodin GENERAL ORDERS: MEDICATION ORDERS: Valium IM 10 mg (HIGH ALERT MEDICATION, NOW) (21:01 04/10/2016 SHASHIivens A.R.N.P.) (21:52 Marianela Hung.Radhika.) IV FLUIDS: ORDER SHEET NOTES: [Electronically signed by Krupa SigalaR.N.PTran (22:44 04/10/2016)] [Electronically signed by Chris Fernandez R.N. (22:50 04/10/2016)] [Electronically locked/signed by Chris Fernandez R.N. (22:50 04/10/2016)]
--- NOTE | 2016-04-10 22:50 | ED MED RECONCILIATION SUMMARY ---
Patient: SIENNA BORRERO Medication Reconciliation Report [facility] VisitID: [id number] [place] [address] 40y, F Registration Date/Time: 04/10/2016 Weight: 136.0 kg Height/Length: 66 in. BMI: 48.4 ALLERGIES: Amitriptyline, Gabapentin, Gluten, Ibuprofen, Lyrica, Sulfa Antibiotics, Vicodin The patient's Home Medications are listed below: THE FOLLOWING MEDICATIONS NEED TO BE RECONCILED: Benadryl Oral 25 mg, PRN Control Pills Cozaar Oral 25 mg, daily Cymbalta Oral Fenayl fibrate 160mg daily Fish Oil Lantus Subcutaneous 30 units, at bedtime Magnesium Oral MetFORMIN HCl Oral 500 mg, 4x a day Metoprolol Tartrate Oral 25 mg, daily OxyCODONE HCl Oral 5 mg 1/2 tab , 4x a day Pantoprazole Sodium Oral Pravastatin Sodium Oral, 2 at bedtime Roxaxin 500-1000? Vit d Vits multi The source(s) of the original Home Medication information: Not obtained. The following Medications were given to the patient in the Emergency Department: Valium [IM] IM 10 mg, administered: 04/10/2016 9:47:00 PM The following Medications were prescribed to the patient: Flexeril 10 mg: Take 1 orally every 8 hours as needed for muscle spasm. Dispense twenty (20). No refills. Substitution is permissible. -- Krupa Sigala A.R.N.P.
--- NOTE | 2016-04-10 22:50 | ED DISCHARGE INSTRUCTIONS ---
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 INSTRUCTIONS Warnings: GENERAL WARNINGS: Return or contact your physician immediately if your condition worsens or changes unexpectedly, if not improving as expected, or if other problems arise. Specifically return if problem worsens. Prescription Medications: Flexeril 10 mg: Take 1 orally every 8 hours as needed for muscle spasm. Dispense twenty (20). No refills. Substitution is permissible. Follow-up: Follow up with a dentist and an ear, nose and throat physician (an rug inspector helper) in about weeks even if well. Call for an appointment. Summary of care provided to patient. Understanding of the discharge instructions verbalized by patient. ADDITIONAL INFORMATION TMJ Syndrome This is a condition with chronic or recurrent pain in the joint of the jaw (in front of the ear). The pain may cause limited motion of the jaw, a locking or catching sensation, clicking, popping or grinding sounds from the joint with movement. It may also lead to headache, earache or neck pain. It is sometimes caused by inflammation in the joint, injury or [id number] of the cartilage in the joint, involuntary grinding of the teeth or poorly fitting dentures. Emotional stress and tension are often a factor. Most cases resolve completely within a few months with proper treatment. Home Care: 1) Rest the jaw by avoiding crunchy or hard foods to chew. Do not eat hard or sticky candies. Soft foods and liquids are easier on the jaw. Protect your jaw while yawning. 2) Hot packs (small towel soaked in hot water) applied to the jaw may give relief by reducing muscle spasm. You may use a heating pad or a towel soaked in hot water. Some people get relief with cold packs, so try both and see which one works best for you. 3) You may use acetaminophen (Tylenol) or ibuprofen (Motrin, Advil) to control pain, unless another medicine was prescribed. [ NOTE : If you have chronic liver or kidney disease or ever had a stomach ulcer or GI bleeding, talk with your doctor before using these medicines.] 4) If you suspect emotional stress is related to your condition. a) Try to identify the sources of stress in your life. It may not be obvious! These may include: -- Daily hassles of life that pile up (traffic jams, missed appointments, car troubles) -- Major life changes, both good (new baby, job promotion) and bad (loss of job, loss of loved one) -- Overload: feeling that you have too many responsibilities and can't take care of everything at once -- Helplessness: feeling like your problems are more than you can solve b) When possible, do something about the source of your stress: avoid hassles, limit the amount of change that is happening in your life at one time and take a break when you feel overloaded. c) Unfortunately, many stressful situations cannot be avoided. Therefore, it is necessary to learn HOW TO MANAGE STRESS better. There are many proven methods that work and will reduce your anxiety. These include simple things like exercise, good nutrition and adequate rest. Also, there are certain techniques that are helpful: relaxation and breathing exercises, visualization, biofeedback, meditation or simply taking some time-out to clear your mind. For more information about this, consult your doctor or go to a local bookstore and review the many books and tapes available on this subject. Follow-Up as directed with a dentist or oral surgeon. Further testing and additional treatment may be required. If you grind your teeth at night, a custom-made "bite guard" may help you. If stress is an important factor and does not respond to the above simple measures, talk to your doctor about a referral for stress management. Get Prompt Medical Attention if any of the following occur: -- Your face becomes swollen or red -- Pain worsens -- 100.0F (37.8C) -- Increasing neck, mouth, tooth or throat pain Cyclobenzaprine Hydrochloride Oral tablet What is this medicine? CYCLOBENZAPRINE (alison wagner) is a muscle relaxer. It is used to treat muscle pain, spasms, and stiffness. How should I use this medicine? Take this medicine by mouth with a glass of water. Follow the directions on the prescription label. If this medicine upsets your stomach, take it with food or milk. Take your medicine at regular intervals. Do not take it more often than directed. Talk to your regional training manager regarding the use of this medicine in children. Special care may be needed. What side effects may I notice from receiving this medicine? Side effects that you should report to your doctor or health school childcare attendant as soon as possible: allergic reactions like skin rash, itching or hives, swelling of the face, lips, or tongue chest pain fast heartbeat hallucinations seizures vomiting Side effects that usually do not require medical attention (report to your doctor or health school childcare attendant if they continue or are bothersome): headache What may interact with this medicine? Do not take this medicine with any of the following medications: cisapride droperidol flecainide grepafloxacin halofantrine levomethadyl MAOIs like Carbex, Eldepryl, Marplan, Nardil, and Parnate nilotinib pimozide probucol sertindole This medicine may also interact with the following medications: abarelix alcohol contrast dyes dolasetron guanethidine medicines for cancer medicines for depression, anxiety, or psychotic disturbances medicines to treat an irregular heartbeat medicines used for sleep or numbness during surgery or procedure methadone octreotide ondansetron palonosetron phenothiazines like chlorpromazine, mesoridazine, prochlorperazine, thioridazine some medicines for infection like alfuzosin, chloroquine, clarithromycin, levofloxacin, mefloquine, pentamidine, troleandomycin tramadol vardenafil What if I miss a dose? If you miss a dose, take it as soon as you can. If it is almost time for your next dose, take only that dose. Do not take double or extra doses. Where should I keep my medicine? Keep out of the reach of children. Store at room temperature between 15 and 30 degrees C (59 and 86 degrees F). Keep container tightly closed. Throw away any unused medicine after the expiration date. What should I tell my health care provider before I take this medicine? They need to know if you have any of these conditions: heart disease, irregular heartbeat, or previous heart attack liver disease thyroid problem an unusual or allergic reaction to cyclobenzaprine, tricyclic antidepressants, lactose, other medicines, foods, dyes, or preservatives or trying to get breast-feeding What should I watch for while using this medicine? Check with your doctor or health school childcare attendant if your condition does not improve within 1 to 3 weeks. You may get drowsy or dizzy when you first start taking the medicine or change doses. Do not drive, use machinery, or do anything that may be dangerous until you know how the medicine affects you. Stand or sit up slowly. Your mouth may get dry. Drinking water, chewing sugarless gum, or sucking on hard candy may help. You have been given the following additional information: TMJ Syndrome Cyclobenzaprine Hydrochloride Oral tablet (Electronically signed by Krupa Sigala A.R.N.P. 04/10/2016 22:44)
--- NOTE | 2016-04-10 22:50 | ED MAR SUMMARY ---
..... Medication Administration Record [facility] [address] [place] [address] Patient: SIENNA BORRERO Visit ID: [id number] 40y, F Weight: 136.0 kg Height/Length: 66 in BMI: 48.4 ALLERGIES: Amitriptyline, Gabapentin, Gluten, Ibuprofen, Lyrica, Sulfa Antibiotics, Vicodin Given 21:47 04/10/2016 Chris Fernandez R.N. Medication Administered: VALIUM [IM] (DIAZEPAM), Dose: 10 mg IM. Medication Ordered: Valium IM 10 mg (HIGH ALERT MEDICATION, NOW).
--- NOTE | 2016-04-10 22:50 | ED DISCHARGE INSTRUCTIONS ---
Patient: SIENNA BORRERO General Instructions [facility] VisitID: [id number] [place] [address] 40y, F Registration Date/Time: 04/10/2016 Right sided chronic temporomandibular joint syndrome with arthralgia. INSTRUCTIONS Warnings: GENERAL WARNINGS: Return or contact your physician immediately if your condition worsens or changes unexpectedly, if not improving as expected, or if other problems arise. Specifically return if problem worsens. Prescription Medications: Flexeril 10 mg: Take 1 orally every 8 hours as needed for muscle spasm. Dispense twenty (20). No refills. Substitution is permissible. Follow-up: Follow up with a dentist and an ear, nose and throat physician (an construction project coordinator) in about weeks even if well. Call for an appointment. Summary of care provided to patient. Understanding of the discharge instructions verbalized by patient. ADDITIONAL INFORMATION TMJ Syndrome This is a condition with chronic or recurrent pain in the joint of the jaw (in front of the ear). The pain may cause limited motion of the jaw, a locking or catching sensation, clicking, popping or grinding sounds from the joint with movement. It may also lead to headache, earache or neck pain. It is sometimes caused by inflammation in the joint, injury or [id number] of the cartilage in the joint, involuntary grinding of the teeth or poorly fitting dentures. Emotional stress and tension are often a factor. Most cases resolve completely within a few months with proper treatment. Home Care: 1) Rest the jaw by avoiding crunchy or hard foods to chew. Do not eat hard or sticky candies. Soft foods and liquids are easier on the jaw. Protect your jaw while yawning. 2) Hot packs (small towel soaked in hot water) applied to the jaw may give relief by reducing muscle spasm. You may use a heating pad or a towel soaked in hot water. Some people get relief with cold packs, so try both and see which one works best for you. 3) You may use acetaminophen (Tylenol) or ibuprofen (Motrin, Advil) to control pain, unless another medicine was prescribed. [ NOTE : If you have chronic liver or kidney disease or ever had a stomach ulcer or GI bleeding, talk with your doctor before using these medicines.] 4) If you suspect emotional stress is related to your condition. a) Try to identify the sources of stress in your life. It may not be obvious! These may include: -- Daily hassles of life that pile up (traffic jams, missed appointments, car troubles) -- Major life changes, both good (new baby, job promotion) and bad (loss of job, loss of loved one) -- Overload: feeling that you have too many responsibilities and can't take care of everything at once -- Helplessness: feeling like your problems are more than you can solve b) When possible, do something about the source of your stress: avoid hassles, limit the amount of change that is happening in your life at one time and take a break when you feel overloaded. c) Unfortunately, many stressful situations cannot be avoided. Therefore, it is necessary to learn HOW TO MANAGE STRESS better. There are many proven methods that work and will reduce your anxiety. These include simple things like exercise, good nutrition and adequate rest. Also, there are certain techniques that are helpful: relaxation and breathing exercises, visualization, biofeedback, meditation or simply taking some time-out to clear your mind. For more information about this, consult your doctor or go to a local bookstore and review the many books and tapes available on this subject. Follow-Up as directed with a dentist or oral surgeon. Further testing and additional treatment may be required. If you grind your teeth at night, a custom-made "bite guard" may help you. If stress is an important factor and does not respond to the above simple measures, talk to your doctor about a referral for stress management. Get Prompt Medical Attention if any of the following occur: -- Your face becomes swollen or red -- Pain worsens -- 100.0F (37.8C) -- Increasing neck, mouth, tooth or throat pain Cyclobenzaprine Hydrochloride Oral tablet What is this medicine? CYCLOBENZAPRINE (alison wagner) is a muscle relaxer. It is used to treat muscle pain, spasms, and stiffness. How should I use this medicine? Take this medicine by mouth with a glass of water. Follow the directions on the prescription label. If this medicine upsets your stomach, take it with food or milk. Take your medicine at regular intervals. Do not take it more often than directed. Talk to your costuming supervisor regarding the use of this medicine in children. Special care may be needed. What side effects may I notice from receiving this medicine? Side effects that you should report to your doctor or health floor care specialist as soon as possible: allergic reactions like skin rash, itching or hives, swelling of the face, lips, or tongue chest pain fast heartbeat hallucinations seizures vomiting Side effects that usually do not require medical attention (report to your doctor or health floor care specialist if they continue or are bothersome): headache What may interact with this medicine? Do not take this medicine with any of the following medications: cisapride droperidol flecainide grepafloxacin halofantrine levomethadyl MAOIs like Carbex, Eldepryl, Marplan, Nardil, and Parnate nilotinib pimozide probucol sertindole This medicine may also interact with the following medications: abarelix alcohol contrast dyes dolasetron guanethidine medicines for cancer medicines for depression, anxiety, or psychotic disturbances medicines to treat an irregular heartbeat medicines used for sleep or numbness during surgery or procedure methadone octreotide ondansetron palonosetron phenothiazines like chlorpromazine, mesoridazine, prochlorperazine, thioridazine some medicines for infection like alfuzosin, chloroquine, clarithromycin, levofloxacin, mefloquine, pentamidine, troleandomycin tramadol vardenafil What if I miss a dose? If you miss a dose, take it as soon as you can. If it is almost time for your next dose, take only that dose. Do not take double or extra doses. Where should I keep my medicine? Keep out of the reach of children. Store at room temperature between 15 and 30 degrees C (59 and 86 degrees F). Keep container tightly closed. Throw away any unused medicine after the expiration date. What should I tell my health care provider before I take this medicine? They need to know if you have any of these conditions: heart disease, irregular heartbeat, or previous heart attack liver disease thyroid problem an unusual or allergic reaction to cyclobenzaprine, tricyclic antidepressants, lactose, other medicines, foods, dyes, or preservatives or trying to get breast-feeding What should I watch for while using this medicine? Check with your doctor or health floor care specialist if your condition does not improve within 1 to 3 weeks. You may get drowsy or dizzy when you first start taking the medicine or change doses. Do not drive, use machinery, or do anything that may be dangerous until you know how the medicine affects you. Stand or sit up slowly. Your mouth may get dry. Drinking water, chewing sugarless gum, or sucking on hard candy may help. You have been given the following additional information: TMJ Syndrome Cyclobenzaprine Hydrochloride Oral tablet (Electronically signed by Krupa Sigala A.R.N.P. 04/10/2016 22:44)
--- NOTE | 2016-04-10 22:50 | ED MED RECONCILIATION SUMMARY ---
Patient: SIENNA BORRERO Medication Reconciliation Report [facility] VisitID: [id number] [place] [address] 40y, F Registration Date/Time: 04/10/2016 Weight: 136.0 kg Height/Length: 66 in. BMI: 48.4 ALLERGIES: Amitriptyline, Gabapentin, Gluten, Ibuprofen, Lyrica, Sulfa Antibiotics, Vicodin The patient's Home Medications are listed below: THE FOLLOWING MEDICATIONS NEED TO BE RECONCILED: Benadryl Oral 25 mg, PRN Control Pills Cozaar Oral 25 mg, daily Cymbalta Oral Fenayl fibrate 160mg daily Fish Oil Lantus Subcutaneous 30 units, at bedtime Magnesium Oral MetFORMIN HCl Oral 500 mg, 4x a day Metoprolol Tartrate Oral 25 mg, daily OxyCODONE HCl Oral 5 mg 1/2 tab , 4x a day Pantoprazole Sodium Oral Pravastatin Sodium Oral, 2 at bedtime Roxaxin 500-1000? Vit d Vits multi The source(s) of the original Home Medication information: Not obtained. The following Medications were given to the patient in the Emergency Department: Valium [IM] IM 10 mg, administered: 04/10/2016 9:47:00 PM The following Medications were prescribed to the patient: Flexeril 10 mg: Take 1 orally every 8 hours as needed for muscle spasm. Dispense twenty (20). No refills. Substitution is permissible. -- Krupa Sigala A.R.N.P.
--- NOTE | 2016-04-10 22:50 | ED MAR SUMMARY ---
..... Medication Administration Record [facility] [address] [place] [address] Patient: SIENNA BORRERO Visit ID: [id number] 40y, F Weight: 136.0 kg Height/Length: 66 in BMI: 48.4 ALLERGIES: Amitriptyline, Gabapentin, Gluten, Ibuprofen, Lyrica, Sulfa Antibiotics, Vicodin Given 21:47 04/10/2016 Chris Fernandez R.N. Medication Administered: VALIUM [IM] (DIAZEPAM), Dose: 10 mg IM. Medication Ordered: Valium IM 10 mg (HIGH ALERT MEDICATION, NOW).
== END 2016-04-10 22:00 | disposition home or self-care (01) ==
LOC: ED SRH 20:29
DX: M26.621 Arthralgia of right temporomandibular joint (principal); E11.9 Type 2 diabetes mellitus without complications; Z87.891 Personal history of nicotine dependence

== ENCOUNTER 2016-04-19 22:35 | Emergency (ER) | payer OTHER ==
--- NOTE | 2016-04-19 22:57 | ED ORDER SUMMARY ---
..... Patient: SIENNA BORRERO OrderSheet [facility] VisitID: [id number] [address] [place] [address] 40y, F Registration Date/Time: 04/19/2016 ORDER SHEET Weight: 136.0 kg (stated) Allergies: Lyrica, Amitriptyline, Gabapentin, Sulfa Antibiotics, Vicodin, Ibuprofen GENERAL ORDERS: MEDICATION ORDERS: Morphine IM 4 mg (HIGH ALERT MEDICATION, NOW) (22:56 04/19/2016 Mitch Pena) (23:06 Nunu R.N.) Tylenol PO 500 mg (NOW) (22:57 04/19/2016 Mitch Pena) (23:06 Nunu R.N.) IV FLUIDS: ORDER SHEET NOTES: [Electronically signed by Analilia Bloom R.N. (23:13 04/19/2016)] [Electronically signed by Ivan Mason Dr. (07:39 04/20/2016)] [Electronically locked/signed by Analilia Bloom R.N. (23:13 04/19/2016)]
--- NOTE | 2016-04-19 22:57 | ED ORDER SUMMARY ---
..... Patient: SIENNA BORRERO OrderSheet [facility] VisitID: [id number] [address] [place] [address] 40y, F Registration Date/Time: 04/19/2016 ORDER SHEET Weight: 136.0 kg (stated) Allergies: Lyrica, Amitriptyline, Gabapentin, Sulfa Antibiotics, Vicodin, Ibuprofen GENERAL ORDERS: MEDICATION ORDERS: Morphine IM 4 mg (HIGH ALERT MEDICATION, NOW) (22:56 04/19/2016 Mitch Pena) (23:06 Nunu R.N.) Tylenol PO 500 mg (NOW) (22:57 04/19/2016 Mitch Pena) (23:06 Nnuu R.N.) IV FLUIDS: ORDER SHEET NOTES: [Electronically signed by Anlailia Bloom R.N. (23:13 04/19/2016)] [Electronically signed by Ivan Mason Dr. (07:39 04/20/2016)] [Electronically locked/signed by Analilia Bloom R.N. (23:13 04/19/2016)]
--- NOTE | 2016-04-19 22:57 | ED NURSING NOTES ---
Clinical Report - Nurses [facility] [address] [place] [address] 04/19/2016 22:36 Patient: SIENNA BORRERO TRIAGE Triage time 22:42 Apr 19 2016. Acuity: LEVEL 4. Chief Complaint: (right side jaw pain). 22:49 04/19/16. --22:50 Analilia Bloom R.N. 22:49 04/19/16. BP: 150/91. HR: 89. RR: 18. O2 saturation: 97%. Temp: 99.3 F. Pain level now 10/24. --22:50 Analilia Bloom R.N. Acuity: LEVEL 5. correction to prior entry - 23:06 04/19/16. --23:06 Analilia Bloom R.N. Weight: 136 kg stated. Height/Length: 66 inches Per Patient. BMI: 48.4. --22:41 Analilia Bloom R.N. Medications Benadryl Oral 25 mg, PRN. Control Pills. Cozaar Oral 25 mg, daily. Cymbalta Oral. Fenayl fibrate 160mg daily. Fish Oil. Lantus Subcutaneous 30 units, at bedtime. MetFORMIN HCl Oral 500 mg, 4x a day. Metoprolol Tartrate Oral 25 mg, daily. Pantoprazole Sodium Oral. Pravastatin Sodium Oral, 2 at bedtime. Vit d. Vits multi . --22:47 Analilia Bloom R.N. TraZODone HCl Oral (Tablet 300 mg) 1 tablet, at bedtime. --22:47 Analilia Bloom R.N. Medication/allergy information source: the patient. --22:50 Analilia Bloom R.N. Allergies Lyrica. --22:43 Analilia Bloom R.N. Amitriptyline. --22:44 Analilia Bloom R.N. Gabapentin. --22:44 Analilia Bloom R.N. Sulfa Antibiotics. --22:45 Analilia Bloom R.N. Vicodin. --22:45 Analilia Bloom R.N. Ibuprofen. --22:45 Analilia Bloom R.N. History Arrived by private vehicle. Historian: patient. Accompanied by family. Onset. (10 days ago). ( chronic TMJ problems, has appt on 05/24 at [facility], pain is worse today). 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 PAST MEDICAL HX: The patient has had a hysterectomy. SOCIAL HX: Former smoker. No alcohol use or drug use. No infectious disease exposure. ABUSE ASSESSMENT: No report of abuse. SELF HARM ASSESSMENT: A self harm assessment was performed. The patient answered "no" to the question "Have you recently felt down, depressed, or hopeless?", "Have you noticed less interest or pleasure in doing things?", "Do you have thoughts of harming or killing yourself?", "Are you here because you tried to hurt yourself?", "Have you ever tried to hurt yourself before today?", "Have you recently had thoughts about harming or killing others?" and "Do you have any dangerous items in your possession?". NUTRITIONAL RISK ASSESSMENT: The nutritional risk assessment revealed no deficiencies. FUNCTIONAL ASSESSMENT: Functional assessment: no impairments noted. LEARNING NEEDS ASSESSMENT: The learning needs assessment revealed no barriers. SKIN INTEGRITY ASSESSMENT: Skin integrity risk assessment completed. No skin integrity risk identified. --22:50 Analilia Bloom R.N. PROBLEMS: Influenza. Nail Avulsion. Subungual Hematoma. Crush Injury. TMJ Syndrome. Lumbar Radiculopathy. Gastritis. Gastroenteritis. Vomiting. Abdominal Pain. Gallstone(s). Pancreatitis. Headache. Hypertension. Sinusitis. Arthritis. Back Injury. Obesity. Gastroesophageal Reflux Disease. Lifestyle / Substance Problems. UTI - Urinary Tract Infection. Pneumonia. Changed Mental Status. Burn. Tetanus Status. Back Pain. Hypercholesterolemia. Diabetes Mellitus. Immunizations. LNMP - Last Normal Menstrual Period. --22:49 Analilia Bloom R.N. ADDITIONAL SURGERIES: Adenoidectomy. Back Surgery. Cholecystectomy. . Hysterectomy. Knee. Knee Surgery. Lt wrist surgery. Oophorectomy. Rt wrist surgery. Tympanostomy Tubes. --22:49 Analilia Bloom R.N. Interventions ID band on patient. --22:50 Analilia Bloom R.N. PHYSICAL ASSESSMENT 23:08 04/19/16. GENERAL / NEURO / PSYCH: Alert. Oriented X 4. Appears in no acute distress. HEENT: Pupils equal, round and reactive to light. No facial asymmetry noted. ( pain both sides of mandible). Mucous membranes are pink. RESPIRATORY: Breath sounds within normal limits. CVS: Pulses within normal limits. GI / : Abdomen nontender. SKIN: Skin intact. Skin is warm and dry. Normal skin turgor. --23:08 Analilia Bloom R.N. NURSING PROGRESS NOTES 22:50 04/19/16. The initial plan of care for this patient includes an assessment with efforts to address the presence of pain; impairment of the musculoskeletal system. This plan of care was discussed with the patient. Reassurance given. Patient identifiers checked. Call light placed in reach. Bed placed in lowest position. Brakes of bed on. Patient ready for evaluation. --23:07 Analilia Bloom R.N. 23:04/19/2016 Morphine (Morphine Sulfate (PF)) IM 4 mg given. Given in the right deltoid. Allergies verified, confirmed 5 rights and sedative warning given to the patient and patient's family. --23:06 Analilia Bloom R.N. 23:04/19/2016 Tylenol (Acetaminophen) PO Tablets 500 mg given. Allergies verified and confirmed 5 rights. --23:06 Analilia Bloom R.N. DISPOSITION / DISCHARGE 23:04/19/16. Departure time: 23:Apr 19 2016. Condition at departure: improved and stable. The goals identified in the patient's plan of care were met. No learning barriers present. Reviewed medication(s) (no rx given). Patient verbalized understanding. Written instructions provided in [place]. The patient was discharged home and accompanied by family. She left the Emergency Department in a wheelchair and via private vehicle. Spouse driving. --23:13 Analilia Bloom R.N. 22:42 04/19/16. BP: 150/91. HR: 89. RR: 18. O2 saturation: 97%. Temp: 99.3 F. Pain level now 8/10. --23:13 Analilia Bloom R.N. Locked/Released at 04/19/2016 23:13 by Analilia Bloom R.N.
--- NOTE | 2016-04-19 22:57 | ED NURSING NOTES ---
Clinical Report - Nurses [facility] [address] [place] [address] 04/19/2016 22:36 Patient: SIENNA BORRERO TRIAGE Triage time 22:42 Apr 19 2016. Acuity: LEVEL 4. Chief Complaint: (right side jaw pain). 22:49 04/19/16. --22:50 Analilia Bloom R.N. 22:49 04/19/16. BP: 150/91. HR: 89. RR: 18. O2 saturation: 97%. Temp: 99.3 F. Pain level now 10/24. --22:50 Analilia Bloom R.N. Acuity: LEVEL 5. correction to prior entry - 23:06 04/19/16. --23:06 Analilia Bloom R.N. Weight: 136 kg stated. Height/Length: 66 inches Per Patient. BMI: 48.4. --22:41 Analilia Bloom R.N. Medications Benadryl Oral 25 mg, PRN. Control Pills. Cozaar Oral 25 mg, daily. Cymbalta Oral. Fenayl fibrate 160mg daily. Fish Oil. Lantus Subcutaneous 30 units, at bedtime. MetFORMIN HCl Oral 500 mg, 4x a day. Metoprolol Tartrate Oral 25 mg, daily. Pantoprazole Sodium Oral. Pravastatin Sodium Oral, 2 at bedtime. Vit d. Vits multi . --22:47 Analilia Bloom R.N. TraZODone HCl Oral (Tablet 300 mg) 1 tablet, at bedtime. --22:47 Analilia Bloom R.N. Medication/allergy information source: the patient. --22:50 Analilia Bloom R.N. Allergies Lyrica. --22:43 Analilia Bloom R.N. Amitriptyline. --22:44 Analilia Bloom R.N. Gabapentin. --22:44 Analilia Bloom R.N. Sulfa Antibiotics. --22:45 Analilia Bloom R.N. Vicodin. --22:45 Analilia Bloom R.N. Ibuprofen. --22:45 Analilia Bloom R.N. History Arrived by private vehicle. Historian: patient. Accompanied by family. Onset. (10 days ago). ( chronic TMJ problems, has appt on 05/24 at [facility], pain is worse today). Treatment THEATRICAL PERFORMER: None. PAST MEDICAL HX: The patient has had a hysterectomy. SOCIAL HX: Former smoker. No alcohol use or drug use. No infectious disease exposure. ABUSE ASSESSMENT: No report of abuse. SELF HARM ASSESSMENT: A self harm assessment was performed. The patient answered "no" to the question "Have you recently felt down, depressed, or hopeless?", "Have you noticed less interest or pleasure in doing things?", "Do you have thoughts of harming or killing yourself?", "Are you here because you tried to hurt yourself?", "Have you ever tried to hurt yourself before today?", "Have you recently had thoughts about harming or killing others?" and "Do you have any dangerous items in your possession?". NUTRITIONAL RISK ASSESSMENT: The nutritional risk assessment revealed no deficiencies. FUNCTIONAL ASSESSMENT: Functional assessment: no impairments noted. LEARNING NEEDS ASSESSMENT: The learning needs assessment revealed no barriers. SKIN INTEGRITY ASSESSMENT: Skin integrity risk assessment completed. No skin integrity risk identified. --22:50 Analilia Bloom R.N. PROBLEMS: Influenza. Nail Avulsion. Subungual Hematoma. Crush Injury. TMJ Syndrome. Lumbar Radiculopathy. Gastritis. Gastroenteritis. Vomiting. Abdominal Pain. Gallstone(s). Pancreatitis. Headache. Hypertension. Sinusitis. Arthritis. Back Injury. Obesity. Gastroesophageal Reflux Disease. Lifestyle / Substance Problems. UTI - Urinary Tract Infection. Pneumonia. Changed Mental Status. Burn. Tetanus Status. Back Pain. Hypercholesterolemia. Diabetes Mellitus. Immunizations. LNMP - Last Normal Menstrual Period. --22:49 Analilia Bloom R.N. ADDITIONAL SURGERIES: Adenoidectomy. Back Surgery. Cholecystectomy. . Hysterectomy. Knee. Knee Surgery. Lt wrist surgery. Oophorectomy. Rt wrist surgery. Tympanostomy Tubes. --22:49 Analilia Bloom R.N. Interventions ID band on patient. --22:50 Analilia Bloom R.N. PHYSICAL ASSESSMENT 23:08 04/19/16. GENERAL / NEURO / PSYCH: Alert. Oriented X 4. Appears in no acute distress. HEENT: Pupils equal, round and reactive to light. No facial asymmetry noted. ( pain both sides of mandible). Mucous membranes are pink. RESPIRATORY: Breath sounds within normal limits. CVS: Pulses within normal limits. GI / : Abdomen nontender. SKIN: Skin intact. Skin is warm and dry. Normal skin turgor. --23:08 Analilia Bloom R.N. NURSING PROGRESS NOTES 22:50 04/19/16. The initial plan of care for this patient includes an assessment with efforts to address the presence of pain; impairment of the musculoskeletal system. This plan of care was discussed with the patient. Reassurance given. Patient identifiers checked. Call light placed in reach. Bed placed in lowest position. Brakes of bed on. Patient ready for evaluation. --23:07 Analilia Bloom R.N. 23:04/19/2016 Morphine (Morphine Sulfate (PF)) IM 4 mg given. Given in the right deltoid. Allergies verified, confirmed 5 rights and sedative warning given to the patient and patient's family. --23:06 Analilia Bloom R.N. 23:04/19/2016 Tylenol (Acetaminophen) PO Tablets 500 mg given. Allergies verified and confirmed 5 rights. --23:06 Aanlilia Bloom R.N. DISPOSITION / DISCHARGE 23:04/19/16. Departure time: 23:Apr 19 2016. Condition at departure: improved and stable. The goals identified in the patient's plan of care were met. No learning barriers present. Reviewed medication(s) (no rx given). Patient verbalized understanding. Written instructions provided in [place]. The patient was discharged home and accompanied by family. She left the Emergency Department in a wheelchair and via private vehicle. Spouse driving. --23:13 Analilia Bloom R.N. 22:42 04/19/16. BP: 150/91. HR: 89. RR: 18. O2 saturation: 97%. Temp: 99.3 F. Pain level now 8/10. --23:13 Analilia Bloom R.N. Locked/Released at 04/19/2016 23:13 by Analilia Bloom R.N.
--- NOTE | 2016-04-19 22:59 | ED CLINICAL REPORT ---
Clinical Report - Physicians/Mid Levels [facility] [address] [place] [address] 04/19/2016 22:36 Patient: SIENNA BORRERO Arrived- By private vehicle. Historian- patient. HISTORY OF PRESENT ILLNESS Chief Complaint: right TMJ pain. Modifying factors- worsened by cough and swallowing. Not relieved by anything. This started past several days and is still present and worsening. It was abrupt in onset and has been constant but is not gone now. Onset during moving jaw. Location- (Right TMJ). The pain is described as moderate. No ear pain, nasal discharge or congestion, complaint of foreign body in the ear or ear trauma. No recent barotrauma or tinnitus. Similar symptoms previously: Many times. Recent medical care: Not recently seen/assessed. REVIEW OF SYSTEMS No difficulty breathing, chest pain, nausea, vomiting or skin rash. All systems otherwise negative, except as recorded above. PAST HISTORY See nurses notes. Medications: TraZODone HCl Oral (Tablet 300 mg) 1 tablet, at bedtime. Benadryl Oral 25 mg, PRN. Control Pills. Cozaar Oral 25 mg, daily. Cymbalta Oral. Fenayl fibrate 160mg daily. Fish Oil. Lantus Subcutaneous 30 units, at bedtime. MetFORMIN HCl Oral 500 mg, 4x a day. Metoprolol Tartrate Oral 25 mg, daily. Pantoprazole Sodium Oral. Pravastatin Sodium Oral, 2 at bedtime. Vit d. Vits multi . Allergies: Amitriptyline. Gabapentin. Ibuprofen. Lyrica. Sulfa Antibiotics. Vicodin. SOCIAL HISTORY Smoker- current status unknown. Not exposed to second-hand smoke at home. No alcohol use or drug use. No recent travel. Is a local resident. ADDITIONAL NOTES The nursing notes have been reviewed. PHYSICAL EXAM Vital Signs: 04/19/2016 22:49 BP: 150/91. HR: 89. RR: 18. O2 saturation: 97%. Temp: 99.3 F. Hypertensive. Oxygen saturation normal. Appearance: Alert. No acute distress. Eyes: Eyes normal inspection. ENT: (normal bilateral tympanic membranes with normal cone of light and appropriate landmarks. External auditory canal does not have any erythema or discharge. Mild amount of cerumen bilaterally. No pain with manipulation of the external auricle or with manipulation of the tragus. No proptosis of the year. No tenderness over the mastoid process. No erythema. Patient with mild tenderness to the right TMJ. No crepitus. No bony abnormalities. No swelling. Left TMJ is otherwise unremarkable and nontender. Lymphadenopathy.). Throat: Pharynx abnormal. No mouth ulcerations, tonsillar exudate or peritonsillar mass. The mucous membranes are not dry. (No stridor. No drooling.). Nose: Nose normal. Neck: Normal inspection. Neck supple. No meningeal signs or lymphadenopathy. CVS: Normal heart rate and rhythm. Heart sounds normal. Respiratory: No respiratory distress. Breath sounds normal. No rales, rhonchi or wheezes. Abdomen: Soft and nontender. : Normal genitalia. Skin: Skin warm and dry. Normal skin color. No rash. Normal skin turgor. PROGRESS AND PROCEDURES Course of Care: the patient is a pleasant 40-year-old female presenting for evaluation of right-sided facial pain. He the patient has a chronic history of TMJ syndrome. At this time there is no evidence of infection at the temporal mandibular joint arr the right side of the patient's face. Patient is currently recovering from the flu. Patient appears nontoxic and is in no acute distress. Head discussion with patient in regards to follow up with your nose and throat. Patient reports that she does have an appointment with them soon. Pain medication will be provided here in the emergency department. Patient is nontoxic. Do not feel patient needs to admitted to the hospital require further emergency department workup/evaluation. Do not feel imaging would be needed at this time. I have reviewed the patient's ABE E alert. The patient has had multiple prescriptions of narcotics from different providers. Most recent prescription was April 15 2016. Patient had received 30 tablets of 5 mg oxycodone and 56 tablets of 5 mg oxycodone on April 02, 2016. Patient appears to have adequate narcotics. Because of the patient's medical allergies, she states that she cannot take Flexeril or nonsteroidal anti-inflammatory medications. Because of this, treatment is limited. However patient does have adequate medications again after reviewing hermedication list. I discussed the patient workup, diagnosis, home care, follow-up, and return precautions. All questions answered. The patient expressed understanding of these instructions and was agreeable to them. Disposition: Discharged. Condition: good. CLINICAL IMPRESSION 04/19/2016 22:49 BP: 150/91. HR: 89. RR: 18. O2 saturation: 97%. Temp: 99.3 F. Blood pressure normal. Oxygen saturation normal. Right sided chronic temporomandibular joint syndrome. atypical right sided facial pain, acute exacerbation. INSTRUCTIONS Warnings: GENERAL WARNINGS: Return or contact your physician immediately if your condition worsens or changes unexpectedly, if not improving as expected, or if other problems arise. Specifically return if pain, vomiting, bleeding, breathing difficulty or fever. Your Current Medications: CONTINUE TAKING THE FOLLOWING MEDICATIONS: Benadryl Oral : 25 mg PRN. Control Pills*. Cozaar Oral : 25 mg daily. Cymbalta Oral. Fenayl fibrate* : 160mg daily. Fish Oil*. Lantus Subcutaneous : 30 units at bedtime. MetFORMIN HCl Oral : 500 mg 4x a day. Metoprolol Tartrate Oral : 25 mg daily. Pantoprazole Sodium Oral. Pravastatin Sodium Oral : 2 at bedtime. TraZODone HCl Oral : Tablet 300 mg, 1 tablet at bedtime. Vit d*. Vits multi *. Follow-up: Return to the emergency department as needed. Follow up with your doctor as scheduled. Reason for referral: recheck today's concerns. Summary of care provided to patient via paper. Screening today revealed the patient's blood pressure to be in the normal range. The patient should follow up with a primary care provider for blood pressure management. Understanding of the discharge instructions verbalized by patient. (Electronically signed by Ivan Mason Dr. 04/20/2016 7:39)
--- NOTE | 2016-04-20 07:39 | ED MED RECONCILIATION SUMMARY ---
Patient: SIENNA BORRERO Medication Reconciliation Report [facility] VisitID: [id number] [address] [place] [address] 40y, F Registration Date/Time: 04/19/2016 Weight: 136.0 kg Height/Length: 66 in. BMI: 48.4 ALLERGIES: Amitriptyline, Gabapentin, Ibuprofen, Lyrica, Sulfa Antibiotics, Vicodin The patient's Home Medications are listed below: CONTINUE TAKING THE FOLLOWING MEDICATIONS: Benadryl Oral 25 mg, PRN Control Pills Cozaar Oral 25 mg, daily Cymbalta Oral Fenayl fibrate 160mg daily Fish Oil Lantus Subcutaneous 30 units, at bedtime MetFORMIN HCl Oral 500 mg, 4x a day Metoprolol Tartrate Oral 25 mg, daily Pantoprazole Sodium Oral Pravastatin Sodium Oral, 2 at bedtime TraZODone HCl Oral (300 mg) 1 tablet, at bedtime Vit d Vits multi The source(s) of the original Home Medication information: patient The following Medications were given to the patient in the Emergency Department: Morphine [IM] IM 4 mg, administered: 04/19/2016 11:06:00 PM Tylenol [PO] PO 500 mg, administered: 04/19/2016 11:06:00 PM The following Medications were prescribed to the patient: None.
--- NOTE | 2016-04-20 07:39 | ED DISCHARGE INSTRUCTIONS ---
Patient: SIENNA BORRERO General Instructions [facility] VisitID: [id number] [address] [place] [address] 40y, F Registration Date/Time: 04/19/2016 04/19/2016 22:49 BP: 150/91. HR: 89. RR: 18. O2 saturation: 97%. Temp: 99.3 F. Blood pressure normal. Oxygen saturation normal. Right sided chronic temporomandibular joint syndrome. atypical right sided facial pain, acute exacerbation. INSTRUCTIONS Warnings: GENERAL WARNINGS: Return or contact your physician immediately if your condition worsens or changes unexpectedly, if not improving as expected, or if other problems arise. Specifically return if pain, vomiting, bleeding, breathing difficulty or fever. Your Current Medications: CONTINUE TAKING THE FOLLOWING MEDICATIONS: Benadryl Oral : 25 mg PRN. Control Pills*. Cozaar Oral : 25 mg daily. Cymbalta Oral. Fenayl fibrate* : 160mg daily. Fish Oil*. Lantus Subcutaneous : 30 units at bedtime. MetFORMIN HCl Oral : 500 mg 4x a day. Metoprolol Tartrate Oral : 25 mg daily. Pantoprazole Sodium Oral. Pravastatin Sodium Oral : 2 at bedtime. TraZODone HCl Oral : Tablet 300 mg, 1 tablet at bedtime. Vit d*. Vits multi *. Follow-up: Return to the emergency department as needed. Follow up with your doctor as scheduled. Reason for referral: recheck today's concerns. Summary of care provided to patient via paper. Screening today revealed the patient's blood pressure to be in the normal range. The patient should follow up with a primary care provider for blood pressure management. Understanding of the discharge instructions verbalized by patient. ADDITIONAL INFORMATION TMJ Syndrome This is a condition with chronic or recurrent pain in the joint of the jaw (in front of the ear). The pain may cause limited motion of the jaw, a locking or catching sensation, clicking, popping or grinding sounds from the joint with movement. It may also lead to headache, earache or neck pain. It is sometimes caused by inflammation in the joint, injury or [id number] of the cartilage in the joint, involuntary grinding of the teeth or poorly fitting dentures. Emotional stress and tension are often a factor. Most cases resolve completely within a few months with proper treatment. Home Care: 1) Rest the jaw by avoiding crunchy or hard foods to chew. Do not eat hard or sticky candies. Soft foods and liquids are easier on the jaw. Protect your jaw while yawning. 2) Hot packs (small towel soaked in hot water) applied to the jaw may give relief by reducing muscle spasm. You may use a heating pad or a towel soaked in hot water. Some people get relief with cold packs, so try both and see which one works best for you. 3) You may use acetaminophen (Tylenol) or ibuprofen (Motrin, Advil) to control pain, unless another medicine was prescribed. [ NOTE : If you have chronic liver or kidney disease or ever had a stomach ulcer or GI bleeding, talk with your doctor before using these medicines.] 4) If you suspect emotional stress is related to your condition. a) Try to identify the sources of stress in your life. It may not be obvious! These may include: -- Daily hassles of life that pile up (traffic jams, missed appointments, car troubles) -- Major life changes, both good (new baby, job promotion) and bad (loss of job, loss of loved one) -- Overload: feeling that you have too many responsibilities and can't take care of everything at once -- Helplessness: feeling like your problems are more than you can solve b) When possible, do something about the source of your stress: avoid hassles, limit the amount of change that is happening in your life at one time and take a break when you feel overloaded. c) Unfortunately, many stressful situations cannot be avoided. Therefore, it is necessary to learn HOW TO MANAGE STRESS better. There are many proven methods that work and will reduce your anxiety. These include simple things like exercise, good nutrition and adequate rest. Also, there are certain techniques that are helpful: relaxation and breathing exercises, visualization, biofeedback, meditation or simply taking some time-out to clear your mind. For more information about this, consult your doctor or go to a local bookstore and review the many books and tapes available on this subject. Follow-Up as directed with a dentist or oral surgeon. Further testing and additional treatment may be required. If you grind your teeth at night, a custom-made "bite guard" may help you. If stress is an important factor and does not respond to the above simple measures, talk to your doctor about a referral for stress management. Get Prompt Medical Attention if any of the following occur: -- Your face becomes swollen or red -- Pain worsens -- 100.0F (37.8C) -- Increasing neck, mouth, tooth or throat pain You have been given the following additional information: TMJ Syndrome (Electronically signed by Ivan Mason Dr. 04/20/2016 7:39)
--- NOTE | 2016-04-20 07:39 | ED MAR SUMMARY ---
..... Medication Administration Record [facility] [address] [place] [address] Patient: SIENNA BORREOR Visit ID: [id number] 40y, F Weight: 136.0 kg Height/Length: 66 in BMI: 48.4 ALLERGIES: Gabapentin, Amitriptyline, Lyrica, Ibuprofen, Vicodin, Sulfa Antibiotics Given 23:04/19/2016 Analilia Bloom R.N. Medication Administered: MORPHINE [IM] (MORPHINE SULFATE (PF)), Dose: 4 mg IM. Medication Ordered: Morphine IM 4 mg (HIGH ALERT MEDICATION, NOW). Given 23:04/19/2016 Analilia Bloom R.N. Medication Administered: TYLENOL [PO] (ACETAMINOPHEN), Dose: 500 mg Tablets PO. Medication Ordered: Tylenol PO 500 mg (NOW).
--- NOTE | 2016-04-20 07:39 | ED MED RECONCILIATION SUMMARY ---
Patient: SIENNA BORRERO Medication Reconciliation Report [facility] VisitID: [id number] [address] [place] [address] 40y, F Registration Date/Time: 04/19/2016 Weight: 136.0 kg Height/Length: 66 in. BMI: 48.4 ALLERGIES: Amitriptyline, Gabapentin, Ibuprofen, Lyrica, Sulfa Antibiotics, Vicodin The patient's Home Medications are listed below: CONTINUE TAKING THE FOLLOWING MEDICATIONS: Benadryl Oral 25 mg, PRN Control Pills Cozaar Oral 25 mg, daily Cymbalta Oral Fenayl fibrate 160mg daily Fish Oil Lantus Subcutaneous 30 units, at bedtime MetFORMIN HCl Oral 500 mg, 4x a day Metoprolol Tartrate Oral 25 mg, daily Pantoprazole Sodium Oral Pravastatin Sodium Oral, 2 at bedtime TraZODone HCl Oral (300 mg) 1 tablet, at bedtime Vit d Vits multi The source(s) of the original Home Medication information: patient The following Medications were given to the patient in the Emergency Department: Morphine [IM] IM 4 mg, administered: 04/19/2016 11:06:00 PM Tylenol [PO] PO 500 mg, administered: 04/19/2016 11:06:00 PM The following Medications were prescribed to the patient: None.
--- NOTE | 2016-04-20 07:39 | ED MAR SUMMARY ---
..... Medication Administration Record [facility] [address] [place] [address] Patient: SIENNA BORRERO Visit ID: [id number] 40y, F Weight: 136.0 kg Height/Length: 66 in BMI: 48.4 ALLERGIES: Gabapentin, Amitriptyline, Lyrica, Ibuprofen, Vicodin, Sulfa Antibiotics Given 23:04/19/2016 Analilia Bloom R.N. Medication Administered: MORPHINE [IM] (MORPHINE SULFATE (PF)), Dose: 4 mg IM. Medication Ordered: Morphine IM 4 mg (HIGH ALERT MEDICATION, NOW). Given 23:04/19/2016 Analilia Bloom R.N. Medication Administered: TYLENOL [PO] (ACETAMINOPHEN), Dose: 500 mg Tablets PO. Medication Ordered: Tylenol PO 500 mg (NOW).
== END 2016-04-19 23:14 | disposition home or self-care (01) ==
LOC: ED SRH 22:35
DX: M26.621 Arthralgia of right temporomandibular joint (principal); G50.1 Atypical facial pain; E11.9 Type 2 diabetes mellitus without complications; Z79.891 Long term (current) use of opiate analgesic; Z79.84 Long term (current) use of oral hypoglycemic drugs; Z88.5 Allergy status to narcotic agent; Z88.6 Allergy status to analgesic agent; Z88.2 Allergy status to sulfonamides

== ENCOUNTER 2016-04-27 21:04 | Emergency (ER) | payer OTHER ==
--- NOTE | 2016-04-27 22:06 | ED CLINICAL REPORT ---
Clinical Report - Physicians/Mid Levels [facility] [address] [place] [address] 04/27/2016 21:04 Patient: SIENNA BORRERO Time Seen: 2122. Arrived- By private vehicle. Historian- patient and family. HISTORY OF PRESENT ILLNESS Chief Complaint: BACK PAIN. Onset was just prior to arrival. It is described as being in the area of the left lower lumbar spine, lower lumbar spine and right lower lumbar spine. The quality is noted to be "pain". Additional history - PATIENT REPORTS ON THE TOILET, AND WIPING HER BOTTOM AFTER HAVING A BOWEL MOVEMENT, WHEN SHE SUSTAINED PAIN, WHILE TWISTING TO LIGHT. REPORTS HISTORY OF SIMILAR PAIN TO HER LOWER BACK. PRIOR SURGERY TO THE LOW BACK. REPORTS SHE HAS TAKEN PAIN MEDICATIONS IN THE PAST. DENIES ANY DIRECT FALL OR TRAUMA. PAIN RADIATING TO BILATERAL LOWER EXTREMITIES, WHICH IS COMMON FOR HER PAIN EXACERBATES. SHE OTHERWISE DENIES ABDOMINAL PAIN, URINARY URGENCY OR FREQUENCY OR INCONTINENCE. REVIEW OF SYSTEMS No fever, chills, urinary frequency, hematuria or cough. All systems otherwise negative, except as recorded above. PAST HISTORY Problems: Influenza. Nail Avulsion. Subungual Hematoma. Crush Injury. TMJ Syndrome. Lumbar Radiculopathy. Gastritis. Gastroenteritis. Vomiting. Abdominal Pain. Gallstone(s). Pancreatitis. Headache. Hypertension. Sinusitis. Arthritis. Back Injury. Obesity. Gastroesophageal Reflux Disease. Lifestyle / Substance Problems. UTI - Urinary Tract Infection. Pneumonia. Changed Mental Status. Burn. Tetanus Status. Back Pain. Hypercholesterolemia. Diabetes Mellitus. Immunizations. LNMP - Last Normal Menstrual Period. Allergic Reaction [RuleOut]. Additional Surgeries: Adenoidectomy. Back Surgery. Cholecystectomy. . Hysterectomy. Knee. Knee Surgery. Lt wrist surgery. Oophorectomy. Rt wrist surgery. Tympanostomy Tubes. Medications: Losartan Potassium Oral. TiZANidine HCl Oral. NovoLOG Subcutaneous. Fish Oil. Lantus Subcutaneous 30 units, at bedtime. MetFORMIN HCl Oral 500 mg, 4x a day. Metoprolol Tartrate Oral 25 mg, daily. Pantoprazole Sodium Oral. Pravastatin Sodium Oral, 2 at bedtime. TraZODone HCl Oral (Tablet 300 mg) 1 tablet, at bedtime. Vit d. Vits multi . Cozaar Oral 25 mg, daily. Cymbalta Oral. Fenayl fibrate 160mg daily. Control Pills. Allergies: Amitriptyline. Gabapentin. Ibuprofen. Lyrica. Sulfa Antibiotics. Vicodin. SOCIAL HISTORY Former smoker. Alcohol use. Patient is a recovering alcoholic. ADDITIONAL NOTES The nursing notes have been reviewed. PHYSICAL EXAM Vital Signs: 04/27/2016 21:10 BP: 153/104. HR: 116. RR: 22. O2 saturation: 96%. Temp: 97.4 F. Pain level now: 8/10. Eyes: Pupils equal, round and reactive to light. ENT: Ears normal. Neck: Normal inspection. Neck nontender. No vertebral tenderness. No meningeal signs. CVS: Heart sounds normal. Pulses normal. Respiratory: No respiratory distress. Breath sounds normal. Abdomen: No visible injury. Soft. Bowel sounds normal. No abdominal tenderness. Back: Vertebral point tenderness (lumbar). Soft tissue tenderness. Neuro: Oriented X 3. Mood/affect normal. No motor deficit. No sensory deficit. PROGRESS AND PROCEDURES Course of Care: here in the er patient with distress status post twisting mechanism, and pain to her back. she has no red findings, however concerning for AN minoo REPORT. such Was reviewed. patient's report recent received oxycodone 5 mg on the 30, quantity of 30 from brandin kwan, as well as an additional quantity of 56 oxycodone 5 mg on the 17th from Sudeep marti. patient reports she does not have such anymore, as she misfiled some, and was easing otherwise previous. this is concerning, and i relayed this to the patient, she was informed she would not be receiving hussein meds in ER Pt in the er with ambulatory nature. There are no risks for spinal epidural abscess or hematoma as patient is without any risk factors such as IVDA or evidence of active infection, no midline tenderness to percussion. Hence I do not feel emergent imaging with an MRI is indicated. However I did discuss with the patient that if these symptoms develop, or if the pain does not resolve an MRI may need to be done outpatient, or in the ED if symptoms worsen acutely or new onset of the above mentioned symptoms develop. 04/27/2016 22:14 BP: 149/84. HR: 99. RR: 16. O2 saturation: 94%. Temp: 97.9 F. Pain level now: 610. Patient is stable. Symptoms better. Patient/family counseled. Disposition: Discharged. CLINICAL IMPRESSION Acute lumbar strain. INSTRUCTIONS (follow up with your dr take your medications as prescribed). Follow-up: Follow up with doctor Friday. (Electronically signed by Heidi Mesa P.A.-C 04/27/2016 23:32)
--- NOTE | 2016-04-27 22:06 | ED ORDER SUMMARY ---
..... Patient: SIENNA BORRERO OrderSheet [facility] VisitID: [id number] [address] [place] [address] 40y, F Registration Date/Time: 04/27/2016 ORDER SHEET Weight: 136.0 kg (stated) Allergies: Amitriptyline, Gabapentin, Ibuprofen, Lyrica, Sulfa Antibiotics, Vicodin GENERAL ORDERS: MEDICATION ORDERS: Dilaudid IM 2 mg (HIGH ALERT MEDICATION, NOW) (21:04/27/2016 EKorolerosalio P.A.-C) (Ack 21:37 HSoule) (21:52 HSoule) Phenergan IM 12.5 mg (HIGH ALERT MEDICATION) (:04/27/2016 EKoroleva P.A.-C) (Ack 21:37 HSoule) (21:52 HSoule) IV FLUIDS: ORDER SHEET NOTES: [Electronically signed by Heidi Mesa P.ATran-Sunil (23:32 04/27/2016)] [Electronically signed by Marbella Vergara (23:33 04/27/2016)] [Electronically locked/signed by Marbella Vergara (23:33 04/27/2016)]
--- NOTE | 2016-04-27 22:06 | ED ORDER SUMMARY ---
..... Patient: SIENNA BORRERO OrderSheet [facility] VisitID: [id number] [address] [place] [address] 40y, F Registration Date/Time: 04/27/2016 ORDER SHEET Weight: 136.0 kg (stated) Allergies: Amitriptyline, Gabapentin, Ibuprofen, Lyrica, Sulfa Antibiotics, Vicodin GENERAL ORDERS: MEDICATION ORDERS: Dilaudid IM 2 mg (HIGH ALERT MEDICATION, NOW) (21:04/27/2016 EKorolerosalio P.A.-C) (Ack 21:37 HSoule) (21:52 HSoule) Phenergan IM 12.5 mg (HIGH ALERT MEDICATION) (:04/27/2016 EKoroleva P.A.-C) (Ack 21:37 HSoule) (21:52 HSoule) IV FLUIDS: ORDER SHEET NOTES: [Electronically signed by Heidi Mesa P.ATran-Sunil (23:32 04/27/2016)] [Electronically signed by Marbella Vergara (23:33 04/27/2016)] [Electronically locked/signed by Marbella Vergara (23:33 04/27/2016)]
--- NOTE | 2016-04-27 22:06 | ED NURSING NOTES ---
Clinical Report - Nurses [facility] [address] [place] [address] 04/27/2016 21:04 Patient: SIENNA BORRERO TRIAGE Triage time 21:11 Apr 27 2016. Acuity: LEVEL 4. Chief Complaint: BACK PAIN. SEPSIS SCREEN: Sepsis Screen: negative. Negative (no infection suspected/documented). Heart rate greater than 90. CIELO COMA SCORE: [place] Coma Scale: 15- eyes open spontaneously (4); best verbal response- oriented x 4 (5); best motor response- obeys commands (6). --21:34 Marbella Vergara 21:10 04/27/16. BP: 153/104. HR: 116. RR: 22. O2 saturation: 96%. Temp: 97.4 F (oral). Pain level now: 10/24. --21:34 Marbella Vergara. Weight: 136 kg stated. Height/Length: 66 inches Per Patient. BMI: 48.4. --21:29 Marbella Vergara. Medications Control Pills. --21:25 Marbella Vergara Cozaar Oral 25 mg, daily. Cymbalta Oral. Fenayl fibrate 160mg daily. --21:26 Marbella Vergara Fish Oil. Lantus Subcutaneous 30 units, at bedtime. MetFORMIN HCl Oral 500 mg, 4x a day. Metoprolol Tartrate Oral 25 mg, daily. Pantoprazole Sodium Oral. Pravastatin Sodium Oral, 2 at bedtime. TraZODone HCl Oral (Tablet 300 mg) 1 tablet, at bedtime. Vit d. Vits multi . --21:26 Marbella Vergara NovoLOG Subcutaneous. --21:28 Marbella Vergara TiZANidine HCl Oral. --21:28 Marbella Vergara Losartan Potassium Oral. --21:30 Marbella Vergara. Allergies Amitriptyline. Gabapentin. Ibuprofen. Lyrica. Sulfa Antibiotics. Vicodin. --21:27 Marbella Vergara. History Arrived by private vehicle. Historian: patient. Accompanied by family. This started today. ( Pt stated she was bending forward about 0600 when she heard her back pop. Pt states sharp pain is radiating down back of both legs down to heel. Pt states she was nausea around dinner time, currently nausea is subsiding.). PAST MEDICAL HX: Immunizations: up-to-date. The patient has had a hysterectomy. SOCIAL HX: Former smoker, end date 2012. Alcohol use. Patient is a recovering alcoholic. (3 years sober). No drug use. No infectious disease exposure. ABUSE ASSESSMENT: No report of abuse. NUTRITIONAL RISK ASSESSMENT: The nutritional risk assessment revealed no deficiencies. FUNCTIONAL ASSESSMENT: Functional assessment: no impairments noted. LEARNING NEEDS ASSESSMENT: The learning needs assessment revealed no barriers. FALL RISK ASSESSMENT: Fall risk assessment completed. Risk factors identified include severe pain and patient history of fall and impairment of mobility. Fall interventions initiated. Side rails up x1. Family at bedside. Call light in reach of patient. Instructed not to get up without assistance. SKIN INTEGRITY ASSESSMENT: Skin integrity risk assessment completed. No skin integrity risk identified. --: Marbella Vergara. PROBLEMS: Influenza. Nail Avulsion. Subungual Hematoma. Crush Injury. TMJ Syndrome. Lumbar Radiculopathy. Gastritis. Gastroenteritis. Vomiting. Abdominal Pain. Gallstone(s). Pancreatitis. Headache. Hypertension. Sinusitis. Arthritis. Back Injury. Obesity. Gastroesophageal Reflux Disease. Lifestyle / Substance Problems. UTI - Urinary Tract Infection. Pneumonia. Changed Mental Status. Burn. Tetanus Status. Back Pain. Hypercholesterolemia. Diabetes Mellitus. Immunizations. LNMP - Last Normal Menstrual Period. --: Marbella Vergara Allergic Reaction [RuleOut]. --: Marbella Vergara. ADDITIONAL SURGERIES: Adenoidectomy. Back Surgery. Cholecystectomy. . Hysterectomy. Knee Surgery. Lt wrist surgery. Oophorectomy. Rt wrist surgery. Tympanostomy Tubes. --: Marbella Vergara. Interventions ID band on patient. Protocol initiated. To treatment room. --: Marbella Vergara. PHYSICAL ASSESSMENT To room via wheelchair. Patient gowned. GENERAL / NEURO / PSYCH: Alert. Oriented X 4. Appears in pain and anxious. HEENT: Mucous membranes are pink. RESPIRATORY: Respirations not labored. CVS: Cardiac rhythm: sinus tachycardia; (110). GI / : Abdomen soft and nontender. SKIN: Skin intact. Skin is warm and dry. BACK: Limited ROM in the back. ( Limited ROM due to pain). --21:35 Marbella Vergara. NURSING PROGRESS NOTES Monitoring of patient in place. Patient gowned. Head of bed elevated. Reassurance given. Two patient identifiers checked. Call light placed in reach. Side rails up x 1. Bed placed in lowest position. Brakes of bed on. Patient ready for evaluation- chart flagged and ED physician notified. ( Provider at bedside discussing plan of care with patient). --21:37 Marbella Vergara 21:47 04/27/2016 Dilaudid (HYDROmorphone HCl PF) IM 2 mg given. Given in the right deltoid. Allergies verified, confirmed 5 rights and sedative warning given to the patient and patient's family. --21:52 Marbella Vergara 21:47 04/27/2016 Phenergan (Promethazine HCl) IM 12.5 mg given. Given in the right deltoid. Allergies verified, confirmed 5 rights and sedative warning given to the patient and patient's family. --21:52 Marbella Vergara 21:52 04/27/16. Pain level now 10/24. --21:52 Marbella Vergara. DISPOSITION / DISCHARGE 22:15 04/27/16. No learning barriers present. Discharge instructions provided and reviewed with the patient. Reviewed medication(s) side effects and precautions information. Prescription(s) given to the patient. Activity restrictions (rest) reviewed. Patient verbalized understanding. Written instructions provided in Surinamese. ( Taught pt not to drive for the next few hours while medication still in system. Informed pt to follow up with PCP for further pain medication and/or imaging.). The patient was discharged by the physician. She was discharged home and accompanied by spouse. She left the Emergency Department in a wheelchair and via private vehicle. Family member driving. --22:30 Marbella Vergara 22:14 04/27/16. BP: 149/84. HR: 99. RR: 16. O2 saturation: 94%. Temp: 97.9 F (oral). Pain level now: 08/24. --22:30 Marbella Vergara. Locked/Released at 04/27/2016 23:33 by Marbella Vergara,
--- NOTE | 2016-04-27 23:33 | ED MAR SUMMARY ---
..... Medication Administration Record [facility] [address] [place] [address] Patient: SIENNA BORRERO Visit ID: [id number] 40y, F Weight: 136.0 kg Height/Length: 66 in BMI: 48.4 ALLERGIES: Amitriptyline, Gabapentin, Ibuprofen, Lyrica, Sulfa Antibiotics, Vicodin Given 21:47 04/27/2016 Marbella Vergara, Medication Administered: DILAUDID [IM] (HYDROMORPHONE HCL PF), Dose: 2 mg IM. Medication Ordered: Dilaudid IM 2 mg (HIGH ALERT MEDICATION, NOW). Given 21:04/27/2016 Marbella Vergara, Medication Administered: PHENERGAN [IM] (PROMETHAZINE HCL), Dose: 12.5 mg IM. Medication Ordered: Phenergan IM 12.5 mg (HIGH ALERT MEDICATION).
--- NOTE | 2016-04-27 23:33 | ED MED RECONCILIATION SUMMARY ---
Patient: SIENNA BORRERO Medication Reconciliation Report [facility] VisitID: [id number] [address] [place] [address] 40y, F Registration Date/Time: 04/27/2016 Weight: 136.0 kg Height/Length: 66 in. BMI: 48.4 ALLERGIES: Amitriptyline, Gabapentin, Ibuprofen, Lyrica, Sulfa Antibiotics, Vicodin The patient's Home Medications are listed below: THE FOLLOWING MEDICATIONS NEED TO BE RECONCILED: Control Pills Cozaar Oral 25 mg, daily Cymbalta Oral Fenayl fibrate 160mg daily Fish Oil Lantus Subcutaneous 30 units, at bedtime Losartan Potassium Oral MetFORMIN HCl Oral 500 mg, 4x a day Metoprolol Tartrate Oral 25 mg, daily NovoLOG Subcutaneous Pantoprazole Sodium Oral Pravastatin Sodium Oral, 2 at bedtime TiZANidine HCl Oral TraZODone HCl Oral (300 mg) 1 tablet, at bedtime Vit d Vits multi The source(s) of the original Home Medication information: Not obtained. The following Medications were given to the patient in the Emergency Department: Dilaudid [IM] IM 2 mg, administered: 04/27/2016 9:47:00 PM Phenergan [IM] IM 12.5 mg, administered: 04/27/2016 9:47:00 PM The following Medications were prescribed to the patient: None.
--- NOTE | 2016-04-27 23:33 | ED DISCHARGE INSTRUCTIONS ---
Patient: SIENNA BORRERO General Instructions [facility] VisitID: [id number] [address] [place] [address] 40y, F Registration Date/Time: 04/27/2016 Acute lumbar strain. INSTRUCTIONS (follow up with your dr take your medications as prescribed). Follow-up: Follow up with doctor Friday. ADDITIONAL INFORMATION Sciatica Sciatica ("Lumbar Radiculopathy") causes a pain that spreads from the lower back down into the buttock, hip and leg. Sometimes leg pain can occur without any back pain. Sciatica is due to irritation or pressure on a spinal nerve as it comes out of the spinal canal. This is most often due to a bulge or rupture of a nearby spinal disk (the cartilage cushion between each spinal bone), which presses on a nearby nerve. Other causes include spinal stenosis (narrowing of the spinal canal) and spasm of the pyriform muscle (a muscle in the buttocks that the sciatic nerve passes through). Sciatica may begin after a sudden twisting/bending force (such as in a car accident), or sometimes after a simple awkward movement. In either case, muscle spasm is commonly present and contributes to the pain. The diagnosis of sciatica is made from the symptoms and physical exam. Unless you had a physical injury (such as a car accident or fall), X-rays are usually not ordered for the initial evaluation of sciatica because the nerves and disks cannot be seen on an x-ray. If signs of a compressed nerve are present (for example, loss of tendon reflex or strength in the leg), an MRI (magnetic resonance imaging) scan will need to be scheduled as an outpatient. Most sciatica (80-90%) gets better with medicine, exercise, physical therapy. If symptoms continue after at least three months of medical treatment, surgery may be considered. Home Care: You may need to stay in bed the first few days. But, as soon as possible, begin sitting or walking to avoid problems with prolonged bed rest. When in bed, try to find a position of comfort. A firm mattress is best. Try lying flat on your back with pillows under your knees. You can also try lying on your side with your knees bent up towards your chest and a pillow between your knees. Avoid prolonged sitting. This puts more stress on the lower back than standing or walking. Some persons find relief with heat (hot shower, hot bath or heating pad) and massage, while others prefer cold packs (crushed or cubed ice in a plastic bag, wrapped in a towel). Try both and use the method that feels best for 20 minutes several times a day. You may use acetaminophen (Tylenol) or ibuprofen (Motrin, Advil) to control pain, unless another pain medicine was prescribed. [ NOTE: If you have chronic liver or kidney disease or ever had a stomach ulcer or GI bleeding, talk with your doctor before using these medicines.] Be aware of safe lifting methods and do not lift anything over 15 pounds until all the pain is gone. Follow Up with your doctor or this facility if your symptoms do not start to improve after one week. Physical therapy or further testing may be needed. [NOTE: If X-rays were taken, they will be reviewed by a radiologist. You will be notified of any new findings that may affect your care.] Get Prompt Medical Attention if any of the following occur: Pain becomes worse, not controlled by the prescribed medicine Weakness or numbness in one or both legs Numbness in the groin, genital area Loss of bowel or bladder control You have been given the following additional information: Back Pain W/ Sciatica (Electronically signed by Heidi Mesa P.A.-C 04/27/2016 23:32)
--- NOTE | 2016-04-27 23:33 | ED MAR SUMMARY ---
..... Medication Administration Record [facility] [address] [place] [address] Patient: SIENNA BORRERO Visit ID: [id number] 40y, F Weight: 136.0 kg Height/Length: 66 in BMI: 48.4 ALLERGIES: Amitriptyline, Gabapentin, Ibuprofen, Lyrica, Sulfa Antibiotics, Vicodin Given 21:47 04/27/2016 Marbella Vergara, Medication Administered: DILAUDID [IM] (HYDROMORPHONE HCL PF), Dose: 2 mg IM. Medication Ordered: Dilaudid IM 2 mg (HIGH ALERT MEDICATION, NOW). Given 21:04/27/2016 Marbella Vergara, Medication Administered: PHENERGAN [IM] (PROMETHAZINE HCL), Dose: 12.5 mg IM. Medication Ordered: Phenergan IM 12.5 mg (HIGH ALERT MEDICATION).
--- NOTE | 2016-04-27 23:33 | ED MED RECONCILIATION SUMMARY ---
Patient: SIENNA BORRERO Medication Reconciliation Report [facility] VisitID: [id number] [address] [place] [address] 40y, F Registration Date/Time: 04/27/2016 Weight: 136.0 kg Height/Length: 66 in. BMI: 48.4 ALLERGIES: Amitriptyline, Gabapentin, Ibuprofen, Lyrica, Sulfa Antibiotics, Vicodin The patient's Home Medications are listed below: THE FOLLOWING MEDICATIONS NEED TO BE RECONCILED: Control Pills Cozaar Oral 25 mg, daily Cymbalta Oral Fenayl fibrate 160mg daily Fish Oil Lantus Subcutaneous 30 units, at bedtime Losartan Potassium Oral MetFORMIN HCl Oral 500 mg, 4x a day Metoprolol Tartrate Oral 25 mg, daily NovoLOG Subcutaneous Pantoprazole Sodium Oral Pravastatin Sodium Oral, 2 at bedtime TiZANidine HCl Oral TraZODone HCl Oral (300 mg) 1 tablet, at bedtime Vit d Vits multi The source(s) of the original Home Medication information: Not obtained. The following Medications were given to the patient in the Emergency Department: Dilaudid [IM] IM 2 mg, administered: 04/27/2016 9:47:00 PM Phenergan [IM] IM 12.5 mg, administered: 04/27/2016 9:47:00 PM The following Medications were prescribed to the patient: None.
== END 2016-04-27 22:15 | disposition home or self-care (01) ==
LOC: ED SRH 21:04
DX: S39.012A Strain of muscle, fascia and tendon of lower back, initial encounter (principal); X50.0XXA Overexertion from strenuous movement or load, initial encounter; Y93.E8 Activity, other personal hygiene; Y99.8 Other external cause status; Y92.002 Bathroom of unspecified non-institutional (private) residence as the place of occurrence of the external cause; I10 Essential (primary) hypertension; E11.9 Type 2 diabetes mellitus without complications; Z79.84 Long term (current) use of oral hypoglycemic drugs; Z79.891 Long term (current) use of opiate analgesic; Z79.4 Long term (current) use of insulin

== ENCOUNTER 2016-07-16 23:18 | Emergency (ER) | payer OTHER ==
--- NOTE | 2016-07-17 00:12 | DIAGNOSTIC IMAGING REPORT ---
PROCEDURE: XR CERVICAL SPINE 2 OR 3 VIEW INDICATION: BILAT. ARM PAIN TECHNIQUE: Three views. COMPARISON: None. FINDINGS: Osseous structures and disc spaces are normal. No evidence of an acute process or fracture. IMPRESSION: 1. Negative cervical spine.
--- NOTE | 2016-07-17 00:51 | ED CLINICAL REPORT ---
Clinical Report - Physicians/Mid Levels [facility] [address] [place] [address] 07/16/2016 23:17 Patient: SIENNA BORRERO Time Seen: 23:26. Arrived- By private vehicle. Historian- patient. HISTORY OF PRESENT ILLNESS Chief Complaint: UPPER EXTREMITY PAIN. The quality is noted to be burning, aching, "pain" and similar to prior episodes. This started several months ago and is still present. It was gradual in onset and has been constant. Symptoms located in the area of the right arm and left arm. (she reports having a pinched nerve in C-6, C-8 causing bilateral arm pain). Patient denies a recent injury. REVIEW OF SYSTEMS No chills, fever, sweats, calf pain or chest pain. No cough, difficulty breathing, pedal edema, palpitations or abdominal pain. No constipation, diarrhea, nausea, vomiting or urinary problems. All systems otherwise negative, except as recorded above. SOCIAL HISTORY Never smoker. Alcohol use. Patient is a recovering alcoholic. History of drug use. Is a recovering addict. FAMILY HISTORY No significant family medical history. ADDITIONAL NOTES The nursing notes have been reviewed. PHYSICAL EXAM Vital Signs: 07/16/2016 23:22 BP: 142/82. HR: 96. RR: 17. O2 saturation: 98%. Temp: 99 F. Pain level now: 7/10. Have been reviewed. Appearance: Alert. No acute distress. Eyes: Pupils equal, round and reactive to light. ENT: Pharynx normal. Neck: Neck supple. CVS: Heart sounds normal. Respiratory: No respiratory distress. Breath sounds normal. Abdomen: Soft and nontender. No organomegaly. Back: Normal inspection. Skin: Skin warm and dry. Normal skin color. Normal skin turgor. Extremities: Upper extremities normal to inspection. Upper extremities exhibit normal ROM. No upper extremity edema. Extremities otherwise negative. Neuro: No motor deficit. No sensory deficit. LABS, X-RAYS, AND EKG C-Spine X-rays: No acute findings. The X-rays were independently viewed by me. PROGRESS AND PROCEDURES Patient/family counseled. Old medical records reviewed. Disposition: Discharged. Condition: stable. CLINICAL IMPRESSION Chronic right and left cervical radiculopathy. INSTRUCTIONS Apply ice for 20 minutes four times a day until better. Don't apply ice directly to skin and don't use while asleep. Limit lifting. No strenuous activity. Warnings: Further evaluation is necessary. GENERAL WARNINGS: Return or contact your physician immediately if your condition worsens or changes unexpectedly, if not improving as expected, or if other problems arise. OTC Medications: Acetaminophen (available over the counter): take according to label instructions. Follow-up: Follow up with your doctor in seven days. Call for the next available appointment. Follow up with a specialist- as recommended by your primary care physician- database specialist. Understanding of the discharge instructions verbalized by patient. (Electronically signed by Chago Tovar MD 07/17/2016 5:55)
--- NOTE | 2016-07-17 00:51 | ED CLINICAL REPORT ---
Clinical Report - Physicians/Mid Levels [facility] [address] [place] [place] [address] 07/16/2016 23:17 Patient: SIENNA BORRERO Time Seen: 23:26. Arrived- By private vehicle. Historian- patient. HISTORY OF PRESENT ILLNESS Chief Complaint: UPPER EXTREMITY PAIN. The quality is noted to be burning, aching, "pain" and similar to prior episodes. This started several months ago and is still present. It was gradual in onset and has been constant. Symptoms located in the area of the right arm and left arm. (she reports having a pinched nerve in C-6, C-8 causing bilateral arm pain). Patient denies a recent injury. REVIEW OF SYSTEMS No chills, fever, sweats, calf pain or chest pain. No cough, difficulty breathing, pedal edema, palpitations or abdominal pain. No constipation, diarrhea, nausea, vomiting or urinary problems. All systems otherwise negative, except as recorded above. SOCIAL HISTORY Never smoker. Alcohol use. Patient is a recovering alcoholic. History of drug use. Is a recovering addict. FAMILY HISTORY No significant family medical history. ADDITIONAL NOTES The nursing notes have been reviewed. PHYSICAL EXAM Vital Signs: 07/16/2016 23:22 BP: 142/82. HR: 96. RR: 17. O2 saturation: 98%. Temp: 99 F. Pain level now: 7/10. Have been reviewed. Appearance: Alert. No acute distress. Eyes: Pupils equal, round and reactive to light. ENT: Pharynx normal. Neck: Neck supple. CVS: Heart sounds normal. Respiratory: No respiratory distress. Breath sounds normal. Abdomen: Soft and nontender. No organomegaly. Back: Normal inspection. Skin: Skin warm and dry. Normal skin color. Normal skin turgor. Extremities: Upper extremities normal to inspection. Upper extremities exhibit normal ROM. No upper extremity edema. Extremities otherwise negative. Neuro: No motor deficit. No sensory deficit. LABS, X-RAYS, AND EKG C-Spine X-rays: No acute findings. The X-rays were independently viewed by me. PROGRESS AND PROCEDURES Patient/family counseled. Old medical records reviewed. Disposition: Discharged. Condition: stable. CLINICAL IMPRESSION Chronic right and left cervical radiculopathy. INSTRUCTIONS Apply ice for 20 minutes four times a day until better. Don't apply ice directly to skin and don't use while asleep. Limit lifting. No strenuous activity. Warnings: Further evaluation is necessary. GENERAL WARNINGS: Return or contact your physician immediately if your condition worsens or changes unexpectedly, if not improving as expected, or if other problems arise. OTC Medications: Acetaminophen (available over the counter): take according to label instructions. Follow-up: Follow up with your doctor in seven days. Call for the next available appointment. Follow up with a specialist- as recommended by your primary care physician- legal process specialist. Understanding of the discharge instructions verbalized by patient. (Electronically signed by Chago Tovar MD 07/17/2016 5:55)
--- NOTE | 2016-07-17 00:52 | ED NURSING NOTES ---
Clinical Report - Nurses Merged With [facility] [address] [place] [address] 07/16/2016 23:17 Patient: SIENNA BORRERO TRIAGE Triage time 23:23. Acuity: LEVEL 4. Chief Complaint: Location of symptoms- right arm. Location of symptoms- left arm. 23:31. Alert. SEPSIS SCREEN: Sepsis Screen. Negative (no infection suspected/documented). CIELO COMA SCORE: [place] Coma Scale: 15- eyes open spontaneously (4); best verbal response- oriented x 4 (5); best motor response- obeys commands (6). --23:31 Chris Sheikh R.N. 23:22 07/16/16. BP: 142/82. HR: 96. RR: 17. O2 saturation: 98%. Temp: 99 F. Pain level now: 09/23. --23:31 Chris Sheikh R.N. Weight: 133.8 kg stated. Height/Length: 66 inches Per Patient. BMI: 47.6. --23:23 Chris Sheikh R.N. Medications Control Pills. Cozaar Oral 25 mg, daily. Cymbalta Oral. Fenayl fibrate 160mg daily. Fish Oil. Lantus Subcutaneous 30 units, at bedtime (up to 70 units split Am and PM). Losartan Potassium Oral. MetFORMIN HCl Oral 500 mg, 4x a day. Metoprolol Tartrate Oral 25 mg, daily. NovoLOG Subcutaneous (sliding scale). Pantoprazole Sodium Oral. Pravastatin Sodium Oral, 2 at bedtime. TraZODone HCl Oral (Tablet 300 mg) 1 tablet, at bedtime. Vit d. Vits multi . --23:28 Chris Sheikh R.N. Allergies Amitriptyline. Gabapentin. Ibuprofen. Lyrica. Sulfa Antibiotics. Vicodin. --23:28 Chris Sheikh R.N. Medication/allergy information source: the patient. --23:31 Chris Sheikh R.N. History Arrived by private vehicle. Historian: patient. Accompanied by family. Primary physician (Kody). No injury occurred. This occurred (Months). ( Patient reports having a pinched nerve in C-6, C-8 causing bilateral arm pain, had physical therapy last week). 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 (MSM, Glucosamine). PAST MEDICAL HX: Tetanus status: up-to-date. Immunizations: up-to-date. The patient has had a hysterectomy. SOCIAL HX: Never smoker. No alcohol use or drug use. No infectious disease exposure. ABUSE ASSESSMENT: No report of abuse. FALL RISK ASSESSMENT: Fall risk assessment completed. No fall risk identified. NUTRITIONAL RISK ASSESSMENT: The nutritional risk assessment revealed no deficiencies. FUNCTIONAL ASSESSMENT: Functional assessment: no impairments noted. LEARNING NEEDS ASSESSMENT: The learning needs assessment revealed no barriers. SKIN INTEGRITY ASSESSMENT: Skin integrity risk assessment completed. No skin integrity risk identified. --23:31 Chris Sheikh R.N. PROBLEMS: Ovarian Cyst. Nail Avulsion. Subungual Hematoma. TMJ Syndrome. Lumbar Radiculopathy. Gallstone(s). Pancreatitis. Hypertension. Arthritis. Obesity. Gastroesophageal Reflux Disease. Lifestyle / Substance Problems. UTI - Urinary Tract Infection. Pneumonia. Hypercholesterolemia. Diabetes Mellitus. --23:30 Chris Sheikh R.N. ADDITIONAL SURGERIES: Adenoidectomy. Back Surgery. Cholecystectomy. . Hysterectomy. Knee. Knee Surgery. Lt wrist surgery. Oophorectomy. Rt wrist surgery. Tympanostomy Tubes. --23:30 Chris Sheikh R.N. Interventions ID band on patient. To treatment room. --23:31 Chris Sheikh R.N. PHYSICAL ASSESSMENT 23:32. To room via wheelchair. GENERAL / NEURO / PSYCH: Oriented X 4. Alert. SKIN: Skin intact. Skin is warm and dry. --23:32 Chris Sheikh R.N. NURSING PROGRESS NOTES 23:32. Two patient identifiers checked. Call light placed in reach. Bed placed in lowest position. Brakes of bed on. Patient ready for evaluation- chart flagged. --23:32 Chris Sheikh R.N. 00:47. The patient is calm and resting quietly. GENERAL / NEURO / PSYCH: Alert. Oriented X 4. RESPIRATORY: No respiratory distress. SKIN: Skin is warm and dry. --00:50 Chris Sheikh R.N. 23:46. Patient transported to radiology by stretcher with tech. --00:04 Chris Sheikh R.N. 23:54. Patient returned from radiology by stretcher with tech. --00:04 Chris Sheikh R.N. DISPOSITION / DISCHARGE Departure time: 00:49. Condition at departure: stable. ( Patient is in a hurry to go - refused vitals). No learning barriers present. Discharge instructions provided and reviewed with the patient and spouse. Patient and spouse verbalized understanding. Written instructions provided in Hungarian. The patient was discharged home and accompanied by spouse. She left the Emergency Department in a wheelchair and via private vehicle. Spouse driving. FALL RISK ASSESSMENT: Fall risk assessment completed. No fall risk identified. --00:50 Chris Sheikh R.N. Locked/Released at 07/17/2016 0:50 by Chris Sheikh R.N.
--- NOTE | 2016-07-17 00:52 | ED NURSING NOTES ---
Clinical Report - Nurses [facility] [address] [place] [address] 07/16/2016 23:17 Patient: SIENNA BORRERO TRIAGE Triage time 23:23. Acuity: LEVEL 4. Chief Complaint: Location of symptoms- right arm. Location of symptoms- left arm. 23:31. Alert. SEPSIS SCREEN: Sepsis Screen. Negative (no infection suspected/documented). CIELO COMA SCORE: [place] Coma Scale: 15- eyes open spontaneously (4); best verbal response- oriented x 4 (5); best motor response- obeys commands (6). --23:31 Chris Sheikh R.N. 23:22 07/16/16. BP: 142/82. HR: 96. RR: 17. O2 saturation: 98%. Temp: 99 F. Pain level now: 09/23. --23:31 Chris Sheikh R.N. Weight: 133.8 kg stated. Height/Length: 66 inches Per Patient. BMI: 47.6. --23:23 Chris Sheikh R.N. Medications Control Pills. Cozaar Oral 25 mg, daily. Cymbalta Oral. Fenayl fibrate 160mg daily. Fish Oil. Lantus Subcutaneous 30 units, at bedtime (up to 70 units split Am and PM). Losartan Potassium Oral. MetFORMIN HCl Oral 500 mg, 4x a day. Metoprolol Tartrate Oral 25 mg, daily. NovoLOG Subcutaneous (sliding scale). Pantoprazole Sodium Oral. Pravastatin Sodium Oral, 2 at bedtime. TraZODone HCl Oral (Tablet 300 mg) 1 tablet, at bedtime. Vit d. Vits multi . --23:28 Chris Sheikh R.N. Allergies Amitriptyline. Gabapentin. Ibuprofen. Lyrica. Sulfa Antibiotics. Vicodin. --23:28 Chris Sheikh R.N. Medication/allergy information source: the patient. --23:31 Chris Sheikh R.N. History Arrived by private vehicle. Historian: patient. Accompanied by family. Primary physician (Kody). No injury occurred. This occurred (Months). ( Patient reports having a pinched nerve in C-6, C-8 causing bilateral arm pain, had physical therapy last week). 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 (MSM, Glucosamine). PAST MEDICAL HX: Tetanus status: up-to-date. Immunizations: up-to-date. The patient has had a hysterectomy. SOCIAL HX: Never smoker. No alcohol use or drug use. No infectious disease exposure. ABUSE ASSESSMENT: No report of abuse. FALL RISK ASSESSMENT: Fall risk assessment completed. No fall risk identified. NUTRITIONAL RISK ASSESSMENT: The nutritional risk assessment revealed no deficiencies. FUNCTIONAL ASSESSMENT: Functional assessment: no impairments noted. LEARNING NEEDS ASSESSMENT: The learning needs assessment revealed no barriers. SKIN INTEGRITY ASSESSMENT: Skin integrity risk assessment completed. No skin integrity risk identified. --23:31 Chris Sheikh R.N. PROBLEMS: Ovarian Cyst. Nail Avulsion. Subungual Hematoma. TMJ Syndrome. Lumbar Radiculopathy. Gallstone(s). Pancreatitis. Hypertension. Arthritis. Obesity. Gastroesophageal Reflux Disease. Lifestyle / Substance Problems. UTI - Urinary Tract Infection. Pneumonia. Hypercholesterolemia. Diabetes Mellitus. --23:30 Chris Sheikh R.N. ADDITIONAL SURGERIES: Adenoidectomy. Back Surgery. Cholecystectomy. . Hysterectomy. Knee. Knee Surgery. Lt wrist surgery. Oophorectomy. Rt wrist surgery. Tympanostomy Tubes. --23:30 Chris Sheikh R.N. Interventions ID band on patient. To treatment room. --23:31 Chris Sheikh R.N. PHYSICAL ASSESSMENT 23:32. To room via wheelchair. GENERAL / NEURO / PSYCH: Oriented X 4. Alert. SKIN: Skin intact. Skin is warm and dry. --23:32 Chris Sheikh R.N. NURSING PROGRESS NOTES 23:32. Two patient identifiers checked. Call light placed in reach. Bed placed in lowest position. Brakes of bed on. Patient ready for evaluation- chart flagged. --23:32 Chris Sheikh R.N. 00:47. The patient is calm and resting quietly. GENERAL / NEURO / PSYCH: Alert. Oriented X 4. RESPIRATORY: No respiratory distress. SKIN: Skin is warm and dry. --00:50 Chris Sheikh R.N. 23:46. Patient transported to radiology by stretcher with tech. --00:04 Chris Sheikh R.N. 23:54. Patient returned from radiology by stretcher with tech. --00:04 Chris Sheikh R.N. DISPOSITION / DISCHARGE Departure time: 00:49. Condition at departure: stable. ( Patient is in a hurry to go - refused vitals). No learning barriers present. Discharge instructions provided and reviewed with the patient and spouse. Patient and spouse verbalized understanding. Written instructions provided in [place]. The patient was discharged home and accompanied by spouse. She left the Emergency Department in a wheelchair and via private vehicle. Spouse driving. FALL RISK ASSESSMENT: Fall risk assessment completed. No fall risk identified. --00:50 Chris Sheikh R.N. Locked/Released at 07/17/2016 0:50 by Chris Sheikh R.N.
--- NOTE | 2016-07-17 00:52 | ED ORDER SUMMARY ---
..... Patient: SIENNA BORRERO OrderSheet [facility] VisitID: [id number] [address] [place] [address] 41y, F Registration Date/Time: 07/16/2016 ORDER SHEET Weight: 133.8 kg (stated) Allergies: Amitriptyline, Gabapentin, Ibuprofen, Lyrica, Sulfa Antibiotics, Vicodin GENERAL ORDERS: Cervical Spine 2 or 3V Urgent (23:35 07/16/2016 Irais RAMACHANDRAN) (Ack 23:44 Christen) (0:07 Fabrice) MEDICATION ORDERS: IV FLUIDS: ORDER SHEET NOTES: [Electronically signed by Chris Sheikh R.N. (00:50 07/17/2016)] [Electronically locked/signed by hCris Sheikh R.N. (00:50 07/17/2016)]
--- NOTE | 2016-07-17 00:52 | ED ORDER SUMMARY ---
..... Patient: SIENNA BORRERO OrderSheet [facility] VisitID: [id number] [address] [place] [address] 41y, F Registration Date/Time: 07/16/2016 ORDER SHEET Weight: 133.8 kg (stated) Allergies: Amitriptyline, Gabapentin, Ibuprofen, Lyrica, Sulfa Antibiotics, Vicodin GENERAL ORDERS: Cervical Spine 2 or 3V Urgent (23:35 07/16/2016 Irais RAMACHANDRAN) (Ack 23:44 Christen) (0:07 Fabrice) MEDICATION ORDERS: IV FLUIDS: ORDER SHEET NOTES: [Electronically signed by Chris Sheikh R.N. (00:50 07/17/2016)] [Electronically locked/signed by Chris Sheikh R.N. (00:50 07/17/2016)]
--- NOTE | 2016-07-17 05:56 | ED MAR SUMMARY ---
..... Medication Administration Record [facility] [address] [place], [place] [id number] Patient: SIENNA BORRERO Visit ID: [id number] 41y, F Weight: 133.8 kg Height/Length: 66 in BMI: 47.6 ALLERGIES: Amitriptyline, Gabapentin, Ibuprofen, Lyrica, Sulfa Antibiotics, Vicodin
--- NOTE | 2016-07-17 05:56 | ED DISCHARGE INSTRUCTIONS ---
Patient: SIENNA BORRERO General Instructions [facility] VisitID: [id number] [place] [address] 41y, F Registration Date/Time: 07/16/2016 Chronic right and left cervical radiculopathy. INSTRUCTIONS Apply ice for 20 minutes four times a day until better. Don't apply ice directly to skin and don't use while asleep. Limit lifting. No strenuous activity. Warnings: Further evaluation is necessary. GENERAL WARNINGS: Return or contact your physician immediately if your condition worsens or changes unexpectedly, if not improving as expected, or if other problems arise. OTC Medications: Acetaminophen (available over the counter): take according to label instructions. Follow-up: Follow up with your doctor in seven days. Call for the next available appointment. Follow up with a specialist- as recommended by your primary care physician- environmental management specialist. Understanding of the discharge instructions verbalized by patient. ADDITIONAL INFORMATION Pinched Nerve, Neck [Cervical Radiculopathy] A pinched nerve in the neck (also called "Cervical Radiculopathy") is caused by irritation or pressure on the nerve that goes from the spinal cord to the arm. This may be caused by a bulging spinal disk (a "spinal disk" is the cushion between each spinal bone) or narrowing of the spinal joint due to arthritis. This can cause numbness, tingling, deep aching or electrical shooting pain from the side of the neck all the way down to the fingers on one side. A pinched nerve may begin after a sudden turning/bending force (such as in a car accident) or after a simple awkward movement. In either case, muscle spasm is commonly present and contributes to the pain. Home Care: 1) Rest and relax the muscles. Use a comfortable pillow that supports the head and keeps the spine in a neutral position. The position of the head should not be tilted forward or backward. A rolled up towel may help for a custom fit. 2) Some persons find relief with heat (hot shower, hot bath or heating pad) and massage, while others prefer cold packs (crushed or cubed ice in a plastic bag, wrapped in a towel) . Try both and use the method that feels best for 20 minutes several times a day. 3) You may use acetaminophen (Tylenol) or ibuprofen (Motrin, Advil) to control pain, unless another medicine was prescribed. [ NOTE : If you have chronic liver or kidney disease or ever had a stomach ulcer or GI bleeding, talk with your doctor before using these medicines.] Follow Up with your physician or this facility if your symptoms do not show signs of improvement after one week. Further testing may be needed. [NOTE: If x-rays were taken, they will be reviewed by a radiologist. You will be notified of any new findings that may affect your care.] Get Prompt Medical Attention if any of the following occur: -- Pain becomes worse and not controlled by prescribed pain medicine -- Weakness in the arm -- Increasing numbness in the arm -- Trouble breathing or swallowing Acetaminophen Oral tablet What is this medicine? ACETAMINOPHEN (a set a SONU vincent fen) is a pain reliever. It is used to treat mild pain and fever. How should I use this medicine? Take this medicine by mouth with a glass of water. Follow the directions on the package or prescription label. Take your medicine at regular intervals. Do not take your medicine more often than directed. Talk to your production specialist regarding the use of this medicine in children. While this drug may be prescribed for children as young as 6 years of age for selected conditions, precautions do apply. What side effects may I notice from receiving this medicine? Side effects that you should report to your doctor or health critical care nurse as soon as possible: allergic reactions like skin rash, itching or hives, swelling of the face, lips, or tongue breathing problems fever or sore throat redness, blistering, peeling or loosening of the skin, including inside the mouth trouble passing urine or change in the amount of urine unusual bleeding or bruising unusually weak or tired yellowing of the eyes or skin Side effects that usually do not require medical attention (report to your doctor or health critical care nurse if they continue or are bothersome): headache nausea, stomach upset What may interact with this medicine? alcohol imatinib isoniazid other medicines with acetaminophen What if I miss a dose? If you miss a dose, take it as soon as you can. If it is almost time for your next dose, take only that dose. Do not take double or extra doses. Where should I keep my medicine? Keep out of reach of children. Store at room temperature between 20 and 25 degrees C (68 and 77 degrees F). Protect from moisture and heat. Throw away any unused medicine after the expiration date. What should I tell my health care provider before I take this medicine? They need to know if you have any of these conditions: if you frequently drink alcohol containing drinks liver disease an unusual or allergic reaction to acetaminophen, other medicines, foods, dyes or preservatives or trying to get breast-feeding What should I watch for while using this medicine? Tell your doctor or health critical care nurse if the pain lasts more than 10 days (5 days for children), if it gets worse, or if there is a new or different kind of pain. Also, check with your doctor if a fever lasts for more than 3 days. Do not take other medicines that contain acetaminophen with this medicine. Always read labels carefully. If you have questions, ask your doctor or pharmacist. If you take too much acetaminophen get medical help right away. Too much acetaminophen can be very dangerous and cause liver damage. Even if you do not have symptoms, it is important to get help right away. You have been given the following additional information: Radiculopathy, Cervical Acetaminophen Oral tablet Limit lifting. No strenuous activity. (Electronically signed by Chago Tovar MD 07/17/2016 5:55)
--- NOTE | 2016-07-17 05:56 | ED MED RECONCILIATION SUMMARY ---
Patient: SIENNA BORRERO Medication Reconciliation Report [facility] VisitID: [id number] [place] [address] 41y, F Registration Date/Time: 07/16/2016 Weight: 133.8 kg Height/Length: 66 in. BMI: 47.6 ALLERGIES: Amitriptyline, Gabapentin, Ibuprofen, Lyrica, Sulfa Antibiotics, Vicodin The patient's Home Medications are listed below: THE FOLLOWING MEDICATIONS NEED TO BE RECONCILED: Control Pills Cozaar Oral 25 mg, daily Cymbalta Oral Fenayl fibrate 160mg daily Fish Oil Lantus Subcutaneous 30 units, at bedtime, up to 70 units split Am and PM Losartan Potassium Oral MetFORMIN HCl Oral 500 mg, 4x a day Metoprolol Tartrate Oral 25 mg, daily NovoLOG Subcutaneous, sliding scale Pantoprazole Sodium Oral Pravastatin Sodium Oral, 2 at bedtime TraZODone HCl Oral (300 mg) 1 tablet, at bedtime Vit d Vits multi The source(s) of the original Home Medication information: patient The following Medications were given to the patient in the Emergency Department: None. The following Medications were prescribed to the patient: Acetaminophen (available over the counter): take according to label instructions. -- Chago Tovar MD
--- NOTE | 2016-07-17 05:56 | ED DISCHARGE INSTRUCTIONS ---
Patient: SIENNA BORRERO General Instructions [facility] VisitID: [id number] [place] [address] 41y, F Registration Date/Time: 07/16/2016 Chronic right and left cervical radiculopathy. INSTRUCTIONS Apply ice for 20 minutes four times a day until better. Don't apply ice directly to skin and don't use while asleep. Limit lifting. No strenuous activity. Warnings: Further evaluation is necessary. GENERAL WARNINGS: Return or contact your physician immediately if your condition worsens or changes unexpectedly, if not improving as expected, or if other problems arise. OTC Medications: Acetaminophen (available over the counter): take according to label instructions. Follow-up: Follow up with your doctor in seven days. Call for the next available appointment. Follow up with a specialist- as recommended by your primary care physician- posting specialist. Understanding of the discharge instructions verbalized by patient. ADDITIONAL INFORMATION Pinched Nerve, Neck [Cervical Radiculopathy] A pinched nerve in the neck (also called "Cervical Radiculopathy") is caused by irritation or pressure on the nerve that goes from the spinal cord to the arm. This may be caused by a bulging spinal disk (a "spinal disk" is the cushion between each spinal bone) or narrowing of the spinal joint due to arthritis. This can cause numbness, tingling, deep aching or electrical shooting pain from the side of the neck all the way down to the fingers on one side. A pinched nerve may begin after a sudden turning/bending force (such as in a car accident) or after a simple awkward movement. In either case, muscle spasm is commonly present and contributes to the pain. Home Care: 1) Rest and relax the muscles. Use a comfortable pillow that supports the head and keeps the spine in a neutral position. The position of the head should not be tilted forward or backward. A rolled up towel may help for a custom fit. 2) Some persons find relief with heat (hot shower, hot bath or heating pad) and massage, while others prefer cold packs (crushed or cubed ice in a plastic bag, wrapped in a towel) . Try both and use the method that feels best for 20 minutes several times a day. 3) You may use acetaminophen (Tylenol) or ibuprofen (Motrin, Advil) to control pain, unless another medicine was prescribed. [ NOTE : If you have chronic liver or kidney disease or ever had a stomach ulcer or GI bleeding, talk with your doctor before using these medicines.] Follow Up with your physician or this facility if your symptoms do not show signs of improvement after one week. Further testing may be needed. [NOTE: If x-rays were taken, they will be reviewed by a radiologist. You will be notified of any new findings that may affect your care.] Get Prompt Medical Attention if any of the following occur: -- Pain becomes worse and not controlled by prescribed pain medicine -- Weakness in the arm -- Increasing numbness in the arm -- Trouble breathing or swallowing Acetaminophen Oral tablet What is this medicine? ACETAMINOPHEN (a set a SONU vincent fen) is a pain reliever. It is used to treat mild pain and fever. How should I use this medicine? Take this medicine by mouth with a glass of water. Follow the directions on the package or prescription label. Take your medicine at regular intervals. Do not take your medicine more often than directed. Talk to your special education administrator regarding the use of this medicine in children. While this drug may be prescribed for children as young as 6 years of age for selected conditions, precautions do apply. What side effects may I notice from receiving this medicine? Side effects that you should report to your doctor or health day care attendant as soon as possible: allergic reactions like skin rash, itching or hives, swelling of the face, lips, or tongue breathing problems fever or sore throat redness, blistering, peeling or loosening of the skin, including inside the mouth trouble passing urine or change in the amount of urine unusual bleeding or bruising unusually weak or tired yellowing of the eyes or skin Side effects that usually do not require medical attention (report to your doctor or health day care attendant if they continue or are bothersome): headache nausea, stomach upset What may interact with this medicine? alcohol imatinib isoniazid other medicines with acetaminophen What if I miss a dose? If you miss a dose, take it as soon as you can. If it is almost time for your next dose, take only that dose. Do not take double or extra doses. Where should I keep my medicine? Keep out of reach of children. Store at room temperature between 20 and 25 degrees C (68 and 77 degrees F). Protect from moisture and heat. Throw away any unused medicine after the expiration date. What should I tell my health care provider before I take this medicine? They need to know if you have any of these conditions: if you frequently drink alcohol containing drinks liver disease an unusual or allergic reaction to acetaminophen, other medicines, foods, dyes or preservatives or trying to get breast-feeding What should I watch for while using this medicine? Tell your doctor or health day care attendant if the pain lasts more than 10 days (5 days for children), if it gets worse, or if there is a new or different kind of pain. Also, check with your doctor if a fever lasts for more than 3 days. Do not take other medicines that contain acetaminophen with this medicine. Always read labels carefully. If you have questions, ask your doctor or pharmacist. If you take too much acetaminophen get medical help right away. Too much acetaminophen can be very dangerous and cause liver damage. Even if you do not have symptoms, it is important to get help right away. You have been given the following additional information: Radiculopathy, Cervical Acetaminophen Oral tablet Limit lifting. No strenuous activity. (Electronically signed by Chago Tovar MD 07/17/2016 5:55)
--- NOTE | 2016-07-17 05:56 | ED MAR SUMMARY ---
..... Medication Administration Record [facility] [address] [place], [place] [id number] Patient: SIENNA BORRERO Visit ID: [id number] 41y, F Weight: 133.8 kg Height/Length: 66 in BMI: 47.6 ALLERGIES: Amitriptyline, Gabapentin, Ibuprofen, Lyrica, Sulfa Antibiotics, Vicodin
--- NOTE | 2016-07-17 05:56 | ED MED RECONCILIATION SUMMARY ---
Patient: SIENNA BORRERO Medication Reconciliation Report [facility] VisitID: [id number] [place] [address] 41y, F Registration Date/Time: 07/16/2016 Weight: 133.8 kg Height/Length: 66 in. BMI: 47.6 ALLERGIES: Amitriptyline, Gabapentin, Ibuprofen, Lyrica, Sulfa Antibiotics, Vicodin The patient's Home Medications are listed below: THE FOLLOWING MEDICATIONS NEED TO BE RECONCILED: Control Pills Cozaar Oral 25 mg, daily Cymbalta Oral Fenayl fibrate 160mg daily Fish Oil Lantus Subcutaneous 30 units, at bedtime, up to 70 units split Am and PM Losartan Potassium Oral MetFORMIN HCl Oral 500 mg, 4x a day Metoprolol Tartrate Oral 25 mg, daily NovoLOG Subcutaneous, sliding scale Pantoprazole Sodium Oral Pravastatin Sodium Oral, 2 at bedtime TraZODone HCl Oral (300 mg) 1 tablet, at bedtime Vit d Vits multi The source(s) of the original Home Medication information: patient The following Medications were given to the patient in the Emergency Department: None. The following Medications were prescribed to the patient: Acetaminophen (available over the counter): take according to label instructions. -- Chago Tovar MD
== END 2016-07-17 00:49 | disposition home or self-care (01) ==
LOC: ED SRH 23:18
DX: M54.12 Radiculopathy, cervical region (principal)

== ENCOUNTER 2016-09-11 21:50 | Observation (INO) | payer OTHER ==
[~2016-09-11] VITALS: Ht 167.6 cm; Wt 134.8 kg
--- NOTE | 2016-09-12 01:24 | ED ORDER SUMMARY ---
..... Patient: SIENNA BORRERO OrderSheet [facility] VisitID: [id number] [address] [place] [address] 41y, F Registration Date/Time: 09/11/2016 ORDER SHEET Weight: 130.6 kg (stated) Allergies: Lyrica, Sulfa Antibiotics, Vicodin, Amitriptyline, Ibuprofen GENERAL ORDERS: Cardiac Panel Stat (22:45 09/11/2016 Rd RAMACHANDRAN) (Ack 22:45 [facility] Therapist) (23:03 RCollier R.N.) Lipase Urgent (22:45 09/11/2016 Rd RAMACHANDRAN) (Ack 22:45 [facility] Therapist) (23:03 RCollier R.N.) CTA Thorax w Cont (Yes) (normal) Urgent (23:27 09/11/2016 Rd RAMACHANDRAN) (Ack 23:48 [facility] Therapist) (0:00 RCollier R.N.) Photo Lab Specialist (Continuous) (23:31 09/11/2016 Rd RAMACHANDRAN) (23:32 RCollier R.N.) Oxygen (2 L/min) (NC) (23:09/11/2016 Rd RAMACHANDRAN) (23:32 RCollier R.N.) Pulse oximeter (23:31 09/11/2016 Rd RAMACHANDRAN) (23:32 RCollier R.N.) D-Dimer Urgent (00:41 09/12/2016 Rd RAMACHANDRAN) (Ack 0:47 [facility] Therapist) (0:47 CHagjocelyn ER [facility] Therapist) MEDICATION ORDERS: Zofran ODT PO 4 mg (NOW) (22:06 09/11/2016 Rd RAMACHANDRAN) (Ack 22:09 RCollier R.N.) (Cancelled: Other22:27 RCollier R.N.) NitroGLYCERIN SL 0.4 mg (x3 PRN Chest Pain) (22:45 09/11/2016 Rd RAMACHANDRAN) (Ack 22:48 RCollier R.N.) (23:03 RCollier R.N.) Aspirin PO 325 mg (Do not crush or chew, NOW) (00:41 09/12/2016 Rd RAMACHANDRAN) (Ack 0:43 RCollier R.N.) (0:48 RCollier R.N.) IV FLUIDS: Zofran IV 4 mg (NOW) (22:28 09/11/2016 RCollier R.N. verbal order read back to Rd RAMACHANDRAN) (22:28 RCollier R.N.) IV NS : initial bolus 1000 mL (1000 mL/hr), then none - (NOW) (22:44 09/11/2016 Rd RAMACHANDRAN) (Ack 22:48 RCollier R.N.) (23:04 RCollier R.N.) Dilaudid IV 1 mg (HIGH ALERT MEDICATION, NOW) (23:13 09/11/2016 RCollier R.N. verbal order read back to Rd RAMACHANDRAN) (23:13 RCollier R.N.) IV Saline Lock (23:51 09/11/2016 Marianela R.N. verbal order read back to Rd RAMACHANDRAN) (23:52 JRomanelli R.N.) Dilaudid IV 2 mg (HIGH ALERT MEDICATION, NOW) (00:29 09/12/2016 Rd RAMACHANDRAN) (Ack 0:30 RCollier R.N.) (0:34 RCollier R.N.) ORDER SHEET NOTES: [Electronically signed by Dayanna Jefferson R.N. (02:36 09/12/2016)] [Electronically signed by Swetha Gomes MD (04:38 09/12/2016)] [Electronically locked/signed by Dayanna Jefferson R.N. (02:36 09/12/2016)]
--- NOTE | 2016-09-12 01:24 | ED CLINICAL REPORT ---
Clinical Report - Physicians/Mid Levels [facility] [address] [place] [address] 09/11/2016 21:51 Patient: SIENNA BORRERO Time Seen: 22:00. Arrived- By private vehicle. Historian- patient. HISTORY OF PRESENT ILLNESS Chief Complaint: CHEST PAIN. At its maximum, severity described as severe. When seen in the E.D., severity described as severe. Modifying factors. Not worsened by anything. Not relieved by anything. This started about 2 hours ago and is still present. Onset during rest; Patient states she was watching TV with her . It is described as pressure and "pain" and it is described as located in the central chest and left chest area. The patient has had difficulty breathing and nausea. No vomiting or diaphoresis. (Patient states she was sitting on the couch when symptoms began, and she felt as though "a cat or a baby" with sitting on her chest. She states the pressure increased and then she developed pain along her left sternal border. Patient states that she does feel pain when she moves her arms but that this pain in her chest is different than the pain that she began experiencing prompted her to come into the emergency department. Patient denies any cardiac history in herself or her family. She has no history of DVT in herself or her family.). Similar symptoms previously: None. Recent medical care: Not recently seen/assessed. REVIEW OF SYSTEMS No fever, chills, cough, pedal edema or calf pain. No fainting episodes, headache, sore throat, blurred vision or abdominal pain. No black stools, difficulty with urination, skin rash, enlarged lymph nodes or joint pain. No bloody stools. All systems otherwise negative, except as recorded above. PAST HISTORY Problems: Cervical Radiculopathy. Ovarian Cyst. Lumbar Strain. Subungual Hematoma. TMJ Syndrome. Lumbar Radiculopathy. Pancreatitis. Hypertension. Arthritis. Obesity. Gastroesophageal Reflux Disease. Lifestyle / Substance Problems. Changed Mental Status. Tetanus Status. Hypercholesterolemia. Diabetes Mellitus. Immunizations. LNMP - Last Normal Menstrual Period. Additional Surgeries: Adenoidectomy. Back Surgery. Cholecystectomy. . Hysterectomy. Knee Surgery. Lt wrist surgery. Oophorectomy. Rt wrist surgery. Tympanostomy Tubes. Medications: Venlafaxine HCl Oral (Tablet 75 mg) 1 tablet, daily. Orphenadrine 100mg, 2x a day. Lantus Subcutaneous 30 units, at bedtime (up to 70 units split Am and PM). Losartan Potassium Oral (Tablet 25 mg) 1 tablet, daily. MetFORMIN HCl Oral (Tablet 500 mg) 2 tablets, 2x a day. Metoprolol Tartrate Oral 25 mg, twice daily. NovoLOG Subcutaneous (sliding scale). Pantoprazole Sodium Oral 40 mg, 2x a day. Pravastatin Sodium Oral, 2 at bedtime. TraZODone HCl Oral (Tablet 300 mg) 1 tablet, at bedtime. Vit d. Vits multi . Control Pills 1 pill, at bedtime. Cymbalta Oral 60mg, twice daily. Allergies: Amitriptyline. Ibuprofen. Lyrica. Sulfa Antibiotics. Vicodin. SOCIAL HISTORY Former smoker, end date 2013. No alcohol use or drug use. ADDITIONAL NOTES The nursing notes have been reviewed. PHYSICAL EXAM Vital Signs: 09/11/2016 21:54 BP: 112/88. HR: 108. RR: 18. O2 saturation: 95%. Temp: 99 F. Mitchell-Santamaria pain scale: 6/10. Have been reviewed. Appearance: Alert. Oriented X3. (Patient appears moderately uncomfortable.). Eyes: Pupils equal, round and reactive to light. Eyes normal inspection. ENT: Nose normal. Neck: Normal inspection. CVS: Normal heart rate and rhythm. Heart sounds normal. Pulses normal. Respiratory: No respiratory distress. Breath sounds normal. Abdomen: Soft and nontender. Back: Normal external inspection. Skin: Skin warm and dry. Normal skin color. No rash. Normal skin turgor. Extremities: Extremities exhibit normal ROM. No lower extremity edema. Neuro: Oriented X 3. No motor deficit. No sensory deficit. LABS, X-RAYS, AND EKG EKG: EKG time: (2156). No acute ischemia. Rate: 108. Tachycardia. Normal P waves. Normal DEWEY. Normal QRS complex. Normal axis. Normal ST and T waves, QT and QTc. Prior EKG unavailable. The study has been interpreted contemporaneously by me. The study has been independently viewed by me. The EKG appears to be a good tracing. I agree with and confirm the computer reading of the EKG. Rhythm Strip #1: Time: (23:29). Rate= 110. Sinus tachycardia. Regular rhythm. Narrow QRS complexes. No ectopy. Conduction normal. Normal ST segments and T waves. The study was interpreted by me. Chest CT: Lungs normal. Great vessels normal. Mediastinum normal. No fractures noted. (No PE grossly, but inadequate study is limiting.). Chest CT performed with contrast. The study was independently viewed by me, interpreted by the radiologist and contemporaneously by me and discussed with the radiologist. Prior studies were not available for comparison. Laboratory Tests: [id number]: (NAOMI: 09/12/2016 00:01) ( MsgRcvd 09/12/2016 01:03) Final results Test Result Flag Units (Reference) D-DIMER QUANTITATIVE 0.10 L ug/mLFEU (0.27-0.52) The primary value of this quantitative assay relates toits negative predictive value (i.e. exclusion) of pulmonaryembolism/deep vein thrombosis/DIC.Elevated levels of d-dimer may also occur with:, age, cancer, inflammation, liver disease,post-op, infection, hematoma, coronary disease, peripheralarteriopathy, bleeding disorders and thrombolytic treatment.Results should be correlated with other clinical andradiological data.Testing Methodology: Latex Immunoassay CBC w Diff: (NAOMI: 09/11/2016 22:05) ( MsgRcvd 09/11/2016 23:01) Final results Test Result Flag Units (Reference) WHITE BLOOD COUNT 12.6 H K/uL (4.5-11.5) RED BLOOD COUNT 4.08 M/uL (4.00-5.20) HEMOGLOBIN 13.1 gm/dL (12.0-16.0) HEMATOCRIT 39.6 % (36.0-46.0) MEAN CELL VOLUME 97 fL (80-100) MEAN CORPUSCULAR HGB 32 pg (26-34) MEAN CORPUSCULAR HGB CONC 33 g/dL (31-37) RED CELL DISTRIBUTION WIDTH 12.7 % (11.6-14.8) PLATELET COUNT 275 K/uL (150-400) LYMPH % 26.6 % (25-40) MONO % 5.7 % (3-14) GRANULOCYTE % 67.7 % (53-90) Lipase: (NAOMI: 09/11/2016 22:05) ( [facility] 09/11/2016 23:08) Final results Test Result Flag Units (Reference) LIPASE 120 U/L (73-393) CHEM 13 PANEL: (NAOMI: 09/11/2016 22:05) ( [facility] 09/11/2016 23:14) Final results Test Result Flag Units (Reference) GLUCOSE 145 H mg/dL (70-110) BUN 13 mg/dL (7-18) CREATININE 0.9 mg/dL (0.6-1.3) Estimated GFR >60 mL/min Estimated GFR- >60 mL/min Note: Persistent reduction over 3 months in eGFR<60 mL/min/1.73 m2 defines CKD. Patients with eGFR values>=60 mL/min/1.73 m2 may also have CKD if evidence ofpersistent proteinuria. Additional information may be foundat www.[email or web address].org. SODIUM 138 mmol/L (136-145) POTASSIUM 4.1 mmol/L (3.5-5.1) CHLORIDE 103 mmol/L (98-107) CARBON DIOXIDE 21 mmol/L (21-32) CALCIUM 10.0 mg/dL (8.5-10.1) TOTAL PROTEIN 7.2 g/dL (6.4-8.2) ALBUMIN 3.6 g/dL (3.3-5.0) BILIRUBIN, TOTAL 0.2 mg/dL (0.0-1.0) ALKALINE PHOSPHATASE 56 U/L (46-116) AST (SGOT) 23 U/L (15-37) ALT (SGPT) 30 U/L (12-78) MAGNESIUM 1.4 L mg/dL (1.8-2.4) CPK 72 U/L (24-260) TROPONIN I <0.05 L ng/mL (0.00-1.5) TROPONIN REFERENCE RANGE:<0.1 NEGATIVE0.1-1.5 INDETERMINANT>1.5 POSITIVE . Pulse Oximetry: 09/11/2016 21:54 O2 saturation: 95%. (FIO2 - room air). Interpretation: normal. PROGRESS AND PROCEDURES Course of Care: the patient was initially treated with nitroglycerin sublingual tablets, without relief. She stated that the pain actually felt a little worse after each of the 2 doses she received. Patient was given IV Dilaudid which did help, and also was given some IV fluid. Patient had risk factors for coronary artery disease including diabetes hypertension and hyperlipidemia. Her chest pain and tachycardia were also concerning for potential PE, particularly since the patient was also on oral contraceptives. Patient was worked up with labs EKG and CTA. Workup was unremarkable, though the CT was suboptimal with regard to the IV contrast. I did add a d-dimer due to the patient's labs and this did field return repairer to be negative. Patient was given an aspirin during her stay in the emergency department I felt that given her cardiac risk factors, as well as the pressure in her chest followed by ongoing pain, that she should be admitted to the hospital for a cardiac rule out and workup. Patient was agreeable to this plan. Discussed case with hospitalist, (Harpal). Reviewed test results and need for additional work-up. Agreed upon treatment plan and decision to admit. Health care provider will see patient in ED. Patient and spouse counseled in person regarding the patient's condition, test results, diagnosis and need for admission. Concerns were addressed. Old medical records reviewed. Disposition: Admitted to Acute Care. Condition: stable and serious. CLINICAL IMPRESSION Precordial chest pain characterized as "discomfort" and "pressure". Possible acute myocardial infarction with no ST elevation (NSTEMI). (Electronically signed by Swetha Gomes MD 09/12/2016 4:38)
--- NOTE | 2016-09-12 01:24 | ED NURSING NOTES ---
Clinical Report - Nurses [facility] [address] [place] [address] 09/11/2016 21:51 Patient: SIENNA BORRERO TRIAGE Triage time 21:54. Acuity: LEVEL 2. Chief Complaint: CHEST PAIN. Alert. --22:03 Dayanna Jefferson R.N. 21:54 09/11/16. BP: 112/88. HR: 108. RR: 18 (regular and unlabored). O2 saturation: 95% on room air. Temp: 99 F (oral). Mitchell-Santamaria pain scale: 10. --22:03 Dayanna Jefferson R.N. Weight: 130.6 kg stated. Height/Length: 66 inches Per Patient. BMI: 46.5. --21:54 Dayanna Jefferson R.N. Medications Control Pills 1 pill, at bedtime. Cymbalta Oral 60mg, twice daily. --22:01 Dayanna Jefferson R.N. Lantus Subcutaneous 30 units, at bedtime (up to 70 units split Am and PM). Losartan Potassium Oral (Tablet 25 mg) 1 tablet, daily. MetFORMIN HCl Oral (Tablet 500 mg) 2 tablets, 2x a day. Metoprolol Tartrate Oral 25 mg, twice daily. NovoLOG Subcutaneous (sliding scale). Pantoprazole Sodium Oral 40 mg, 2x a day. Pravastatin Sodium Oral, 2 at bedtime. TraZODone HCl Oral (Tablet 300 mg) 1 tablet, at bedtime. Vit d. Vits multi . --22:01 Dayanna Jefferson R.N. Orphenadrine 100mg, 2x a day. --22:02 Dayanna Jefferson R.N. Venlafaxine HCl Oral (Tablet 75 mg) 1 tablet, daily. --22:02 Dayanna Jefferson R.N. The following entry was struck and corrected by Dayanna Jefferson R.N., 01:02 (09/12/16) Reason for correction - other(correction). <<[facility] ENTRY-- Pantoprazole Sodium Oral. --22:01 Dayanna Jefferson R.N. --END STRIKE>> The following entry was struck and corrected by Dayanna Jefferson R.N., 01:01 (09/12/16) Reason for correction - other(correction). <<[facility]-- Metoprolol Tartrate Oral 25 mg, daily. --22:01 Dayanna Jefferson R.N. --END STRIKE>> The following entry was struck and corrected by Dayanna Jefferson R.N., 01:01 (09/12/16) Reason for correction - other(correction). <<[facility] ENTRY-- MetFORMIN HCl Oral 500 mg, 4x a day. --22:01 Dayanna Jefferson R.N. --END STRIKE>> The following entry was struck and corrected by Dayanna Jefferson R.N., 01:00 (09/12/16) Reason for correction - other(correction). <<[facility] ENTRY-- Losartan Potassium Oral. --22:01 Dayanna Jefferson R.N. --END STRIKE>> The following entry was struck and corrected by Dayanna Jefferson R.N., 01:00 (09/12/16) Reason for correction - other(correction). <<[facility] ENTRY-- Control Pills. --22:01 Dayanna Jefferson R.N. --END STRIKE>> The following entry was struck and corrected by Dayanna Jefferson R.N., 01:00 (09/12/16) Reason for correction - other(correction). <<[facility] ENTRY-- Cymbalta Oral. --22:01 Dayanna Jefferson R.N. --END STRIKE>>. Allergies Lyrica. --21:57 Dayanna Jefferson R.N. Sulfa Antibiotics. --21:57 Dayanna Jefferson R.N. Vicodin. --21:58 Dayanna Jefferson R.N. Amitriptyline. Ibuprofen. --21:59 Dayanna Jefferson R.N. History Arrived by private vehicle. Historian: patient. Accompanied by spouse. Primary physician (Kody ([facility] This started today. Onset. (about 2 hours ago). She has had nausea. PAST MEDICAL HX: Immunizations: up-to-date. The patient has had a hysterectomy. SOCIAL HX: Never smoker. History of drug use. Is a recovering addict. (has not used since 2013). No alcohol use. --22: Dayanna Jefferson R.N. PROBLEMS: Ovarian Cyst. Subungual Hematoma. TMJ Syndrome. Lumbar Radiculopathy. Pancreatitis. Hypertension. Sinusitis. Arthritis. Obesity. Lifestyle / Substance Problems. Pneumonia. Hypercholesterolemia. Diabetes Mellitus. --:57 Dayanna Jefferson R.N. MRSA Infection. --: Dayanna Jefferson R.N. The following entry was modified by Swetha Gomes MD, 01:39 Reason - duplicate <<[facility] ENTRY-- Back Injury. --03:30 Swetha Gomes MD --END STRIKE>>. ADDITIONAL SURGERIES: Adenoidectomy. Back Surgery. Cholecystectomy. . Hysterectomy. Knee Surgery. Lt wrist surgery. Oophorectomy. Rt wrist surgery. Tympanostomy Tubes. --:57 Dayanna Jefferson R.N. Interventions ID band on patient. To treatment room. --22: Dayanna Jefferson R.N. PHYSICAL ASSESSMENT To room via wheelchair. Patient gowned. GENERAL / NEURO / PSYCH: Alert. Oriented X 4. Appears anxious. HEENT: Mucous membranes are pink. RESPIRATORY: Respirations not labored. CVS: Capillary refill less than 2 seconds. SKIN: Skin is warm and dry. --22:03 Dayanna Jefferson R.N. NURSING PROGRESS NOTES Head of bed elevated. Two patient identifiers checked. Call light placed in reach. Side rails up x 1. Bed placed in lowest position. Brakes of bed on. --22:03 Dayanna Jefferson R.N. Patient ready for evaluation- chart flagged. --22:03 Dayanna Jefferson R.N. 22:04 09/11/2016 Site #1 started via IV in the left hand with an 20g angiocath, with aseptic technique and good blood return; one attempt. Blood drawn: rainbow set. Labeled in the presence of the patient and sent to the lab. Saline lock flushed with 10 mL saline (Started by JIMBO Noble). --22:04 Dayanna Jefferson R.N. EKG time: (2156). EKG was performed by a tech and shown to the ED physician. --22:04 Dayanna Jefferson R.N. 22:05 09/11/2016 Zofran (Ondansetron HCl) IVP 4 mg given over 1 minute(s) via site #1. Allergies verified and confirmed 5 rights. IV patency established. IV site checked: no pain, redness, or swelling. IV flushed thoroughly pre- and post-medication administration. IVP given by RN. --22:28 Dayanna Jefferson R.N. 22:50 09/11/16. BP: 134/78. HR: 110. RR: 18. O2 saturation: 94%. Pain level now: 710. --23:01 Dayanna Jefferson R.N. 22:56. Oxygen administered by nasal cannula at 2 liters. --23:02 Dayanna Jefferson R.N. 22:58 09/11/16. BP: 120/74. HR: 113. RR: 18. O2 saturation: 94% on room air. Pain level now: 6/10. --23:02 Dayanna Jefferson R.N. 22:53 09/11/2016 Nitroglycerin SL Tablets 0.4 mg given. Allergies verified and confirmed 5 rights. --23:03 Dayanna Jefferson R.N. 22:54 09/11/2016 Started bag #1 1000 mL IV Fluids IV NS (Saline); at 1000 mL/hr via site #1 via IV pump. Allergies verified and confirmed 5 rights. IV patency established. IV site checked: no pain, redness, or swelling. IV flushed thoroughly pre- and post-medication administration. --23:04 Dayanna Jefferson R.N. 22:58 09/11/2016 Nitroglycerin SL Tablets 0.4 mg given. Allergies verified and confirmed 5 rights. --23:03 Dayanna Jefferson R.N. ( pt states pain is worse (headache now). does not want more Nitroglycerine.). --23:08 Dayanna Jefferson R.N. 23:10 09/11/2016 Dilaudid (HYDROmorphone HCl PF) IVP 1 mg given over 90 second(s) via site #1. Allergies verified, confirmed 5 rights and sedative warning given to the patient. IV patency established. IV site checked: no pain, redness, or swelling. IV flushed thoroughly pre- and post-medication administration. IVP given by RN. --23:13 Dayanna Jefferson R.N. 23:10 09/11/16. BP: 108/65. HR: 104. RR: 17 (regular and unlabored). O2 saturation: 98% on nasal cannula at 2 liters/minute. Pain level now: 08/24. --23:14 Dayanna Jefferson R.N. ( Assisted pt up to bathroom via wheel chair.). --23:32 Dayanna Jefferson R.N. 23:40. 2 liters by nasal cannula reapplied. server programmer, pulse oximeter and NIBP monitor placed on patient; monitor alarms on (placed back on monitors). ( returns from restroom via wheelchair). --23:43 Dayanna Jefferson R.N. 23:43 09/11/16. BP: 136/75. HR: 100. RR: 17 (regular and unlabored). O2 saturation: 99% on nasal cannula at 2 liters/minute. --23:44 Dayanna Jefferson R.N. 23:45 09/11/2016 Site #2 started via IV in the right forearm with an 20g angiocath, with aseptic technique and good blood return; one attempt (IV fluids moved to this site. Site started for CTA). --23:50 Chris Fernandez R.N. 23:54 09/11/2016 IV Fluids IV NS Discontinued: bag #1 completed. Total amount infused: 1000 mL. IV patency established. IV site checked: no pain, redness, or swelling. IV flushed thoroughly. --23:59 Dayanna Jefferson R.N. Patient transported to CT by stretcher with tech. (00:00). --00:00 Dayanna Jefferson R.N. Patient returned from CT by stretcher with tech. (00:20). --00:21 Dayanna Jefferson R.N. 00:32 09/12/2016 Dilaudid (HYDROmorphone HCl PF) IVP 2 mg given diluted in NS 10mL over 90 second(s) via site #2. Allergies verified, confirmed 5 rights and sedative warning given to the patient. IV patency established. IV site checked: no pain, redness, or swelling. IV flushed thoroughly pre- and post-medication administration. IVP given by RN. --00:34 Dayanna Jefferson R.N. 00:34 09/12/16. BP: 106/67. HR: 99. RR: 16. O2 saturation: 97% on nasal cannula at 2 liters/minute. --00:35 Dayanna Jefferson R.N. 00:45 09/12/2016 Aspirin PO Tablets 325 mg given. Allergies verified and confirmed 5 rights. --00:48 Dayanna Jefferson R.N. 02:00- Dr Rowan in with pt. --02:11 Dayanna Jefferson R.N. 02:11 09/12/16. BP: 129/77. HR: 98. RR: 16. O2 saturation: 98% on nasal cannula at 2 liters/minute. --02:12 Dayanna Jefferson R.N. DISPOSITION / DISCHARGE 02:30 09/12/16. BP: 112/71. HR: 102. RR: 16 (regular and unlabored). O2 saturation: 96% on nasal cannula at 2 liters/minute. --02:30 Dayanna Jefferson R.N. Report was given to a nurse via a phone call. All questions were answered. Report was acknowledged. --02:35 Dayanna Jefferson R.N. 02:35 09/12/2016 Site #[address] upon admission; flushes easily. --02:35 Dayanna Jefferson R.N. 02:36 09/12/2016 Site #[address] upon admission; flushes easily. --02:36 Dayanna Jefferson R.N. Transported via stretcher by nurse with IV and O2. --02:36 Dayanna Jefferson R.N. Departure time: 02:36. --02:36 Dayanna Jefferson R.N. Locked/Released at 09/12/2016 2:36 by Dayanna Jefferson R.N.
--- NOTE | 2016-09-12 01:24 | ED ORDER SUMMARY ---
..... Patient: SIENNA BORRERO OrderSheet [facility] VisitID: [id number] [address] [place] [address] 41y, F Registration Date/Time: 09/11/2016 ORDER SHEET Weight: 130.6 kg (stated) Allergies: Lyrica, Sulfa Antibiotics, Vicodin, Amitriptyline, Ibuprofen GENERAL ORDERS: Cardiac Panel Stat (22:45 09/11/2016 Rd RAMACHANDRAN) (Ack 22:45 Alicja ER Magnaflux Operator) (23:03 RCollier R.N.) Lipase Urgent (22:45 09/11/2016 Rd RAMACHANDRAN) (Ack 22:45 Alicja ER Magnaflux Operator) (23:03 RCollier R.N.) CTA Thorax w Cont (Yes) (normal) Urgent (23:27 09/11/2016 Rd RAMACHANDRAN) (Ack 23:48 Alicja ER Magnaflux Operator) (0:00 RCollier R.N.) Professional Caster (Continuous) (23:31 09/11/2016 Rd RAMACHANDRAN) (23:32 RCollier R.N.) Oxygen (2 L/min) (NC) (23:09/11/2016 Rd RAMACHANDRAN) (23:32 RCollier R.N.) Pulse oximeter (23:31 09/11/2016 Rd RAMACHANDRAN) (23:32 RCollier R.N.) D-Dimer Urgent (00:41 09/12/2016 Rd RAMACHANDRAN) (Ack 0:47 Alicja ER Magnaflux Operator) (0:47 CHagjocelyn ER Magnaflux Operator) MEDICATION ORDERS: Zofran ODT PO 4 mg (NOW) (22:06 09/11/2016 Rd RAMACHANDRAN) (Ack 22:09 RCollier R.N.) (Cancelled: Other22:27 RCollier R.N.) NitroGLYCERIN SL 0.4 mg (x3 PRN Chest Pain) (22:45 09/11/2016 Rd RAMACHANDRAN) (Ack 22:48 RCollier R.N.) (23:03 RCollier R.N.) Aspirin PO 325 mg (Do not crush or chew, NOW) (00:41 09/12/2016 Rd RAMACHANDRAN) (Ack 0:43 RCollier R.N.) (0:48 RCollier R.N.) IV FLUIDS: Zofran IV 4 mg (NOW) (22:28 09/11/2016 RCollier R.N. verbal order read back to Rd RAMACHANDRAN) (22:28 RCollier R.N.) IV NS : initial bolus 1000 mL (1000 mL/hr), then none - (NOW) (22:44 09/11/2016 Rd RAMACHANDRAN) (Ack 22:48 RCollier R.N.) (23:04 RCollier R.N.) Dilaudid IV 1 mg (HIGH ALERT MEDICATION, NOW) (23:13 09/11/2016 RCollier R.N. verbal order read back to Rd RAMACHANDRAN) (23:13 RCollier R.N.) IV Saline Lock (23:51 09/11/2016 Marianela R.N. verbal order read back to Rd RAMACHANDRAN) (23:52 JRomanelli R.N.) Dilaudid IV 2 mg (HIGH ALERT MEDICATION, NOW) (00:29 09/12/2016 Rd RAMACHANDRAN) (Ack 0:30 RCollier R.N.) (0:34 RCollier R.N.) ORDER SHEET NOTES: [Electronically signed by Dayanna Jefferson R.N. (02:36 09/12/2016)] [Electronically signed by Swetha Gomes MD (04:38 09/12/2016)] [Electronically locked/signed by Dayanna Jefferson R.N. (02:36 09/12/2016)]
--- NOTE | 2016-09-12 01:24 | ED NURSING NOTES ---
Clinical Report - Nurses [facility] [address] [place] [address] 09/11/2016 21:51 Patient: SIENNA BORRERO TRIAGE Triage time 21:54. Acuity: LEVEL 2. Chief Complaint: CHEST PAIN. Alert. --22:03 Dayanna Jefferson R.N. 21:54 09/11/16. BP: 112/88. HR: 108. RR: 18 (regular and unlabored). O2 saturation: 95% on room air. Temp: 99 F (oral). Mitchell-Santamaria pain scale: 10. --22:03 Dayanna Jefferson R.N. Weight: 130.6 kg stated. Height/Length: 66 inches Per Patient. BMI: 46.5. --21:54 Dayanna Jefferson R.N. Medications Control Pills 1 pill, at bedtime. Cymbalta Oral 60mg, twice daily. --22:01 Dayanna Jefferson R.N. Lantus Subcutaneous 30 units, at bedtime (up to 70 units split Am and PM). Losartan Potassium Oral (Tablet 25 mg) 1 tablet, daily. MetFORMIN HCl Oral (Tablet 500 mg) 2 tablets, 2x a day. Metoprolol Tartrate Oral 25 mg, twice daily. NovoLOG Subcutaneous (sliding scale). Pantoprazole Sodium Oral 40 mg, 2x a day. Pravastatin Sodium Oral, 2 at bedtime. TraZODone HCl Oral (Tablet 300 mg) 1 tablet, at bedtime. Vit d. Vits multi . --22:01 Dayanna Jefferson R.N. Orphenadrine 100mg, 2x a day. --22:02 Dayanna Jefferson R.N. Venlafaxine HCl Oral (Tablet 75 mg) 1 tablet, daily. --22:02 Dayanna Jefferson R.N. The following entry was struck and corrected by Dayanna Jefferson R.N., 01:02 (09/12/16) Reason for correction - other(correction). <<[facility] ENTRY-- Pantoprazole Sodium Oral. --22:01 Dayanna Jefferson R.N. --END STRIKE>> The following entry was struck and corrected by Dayanna Jefferson R.N., 01:01 (09/12/16) Reason for correction - other(correction). [facility]-- Metoprolol Tartrate Oral 25 mg, daily. --22:01 Dayanna Jefferson R.N. --END STRIKE>> The following entry was struck and corrected by Dayanna Jefferson R.N., 01:01 (09/12/16) Reason for correction - other(correction). <<[facility] ENTRY-- MetFORMIN HCl Oral 500 mg, 4x a day. --22:01 Dayanna Jefferson R.N. --END STRIKE>> The following entry was struck and corrected by Dayanna Jefferson R.N., 01:00 (09/12/16) Reason for correction - other(correction). <<[facility] ENTRY-- Losartan Potassium Oral. --22:01 Dayanna Jefferson R.N. --END STRIKE>> The following entry was struck and corrected by Dayanna Jefferson R.N., 01:00 (09/12/16) Reason for correction - other(correction). <<[facility] ENTRY-- Control Pills. --22:01 Dayanna Jefferson R.N. --END STRIKE>> The following entry was struck and corrected by Dayanna Jefferson R.N., 01:00 (09/12/16) Reason for correction - other(correction). <<[facility] ENTRY-- Cymbalta Oral. --22:01 Dayanna Jefferson R.N. --END STRIKE>>. Allergies Lyrica. --21:57 Dayanna Jefferson R.N. Sulfa Antibiotics. --21:57 Dayanna Jefferson R.N. Vicodin. --21:58 Dayanna Jefferson R.N. Amitriptyline. Ibuprofen. --21:59 Dayanna Jefferson R.N. History Arrived by private vehicle. Historian: patient. Accompanied by spouse. Primary physician (Kody ([facility] [place] This started today. Onset. (about 2 hours ago). She has had nausea. PAST MEDICAL HX: Immunizations: up-to-date. The patient has had a hysterectomy. SOCIAL HX: Never smoker. History of drug use. Is a recovering addict. (has not used since 2013). No alcohol use. --22: Dayanna Jefferosn R.N. PROBLEMS: Ovarian Cyst. Subungual Hematoma. TMJ Syndrome. Lumbar Radiculopathy. Pancreatitis. Hypertension. Sinusitis. Arthritis. Obesity. Lifestyle / Substance Problems. Pneumonia. Hypercholesterolemia. Diabetes Mellitus. --:57 Dayanna Jefferson R.N. MRSA Infection. --: Dayanna Jefferson R.N. The following entry was modified by Swetha Gomes MD, 01:39 Reason - duplicate <<STRICKEN ENTRY-- Back Injury. --03:30 Swetha Gomes MD --END STRIKE>>. ADDITIONAL SURGERIES: Adenoidectomy. Back Surgery. Cholecystectomy. . Hysterectomy. Knee Surgery. Lt wrist surgery. Oophorectomy. Rt wrist surgery. Tympanostomy Tubes. --:57 Dayanna Jefferson R.N. Interventions ID band on patient. To treatment room. --22: Dayanna Jefferson R.N. PHYSICAL ASSESSMENT To room via wheelchair. Patient gowned. GENERAL / NEURO / PSYCH: Alert. Oriented X 4. Appears anxious. HEENT: Mucous membranes are pink. RESPIRATORY: Respirations not labored. CVS: Capillary refill less than 2 seconds. SKIN: Skin is warm and dry. --22:03 Dayanna Jefferson R.N. NURSING PROGRESS NOTES Head of bed elevated. Two patient identifiers checked. Call light placed in reach. Side rails up x 1. Bed placed in lowest position. Brakes of bed on. --22:03 Dayanna Jefferson R.N. Patient ready for evaluation- chart flagged. --22:03 Dayanna Jefferson R.N. 22:04 09/11/2016 Site #1 started via IV in the left hand with an 20g angiocath, with aseptic technique and good blood return; one attempt. Blood drawn: rainbow set. Labeled in the presence of the patient and sent to the lab. Saline lock flushed with 10 mL saline (Started by JIMBO Noble). --22:04 Dayanna Jefferson R.N. EKG time: (2156). EKG was performed by a tech and shown to the ED physician. --22:04 Dayanna Jefferson R.N. 22:05 09/11/2016 Zofran (Ondansetron HCl) IVP 4 mg given over 1 minute(s) via site #1. Allergies verified and confirmed 5 rights. IV patency established. IV site checked: no pain, redness, or swelling. IV flushed thoroughly pre- and post-medication administration. IVP given by RN. --22:28 Dayanna Jefferson R.N. 22:50 09/11/16. BP: 134/78. HR: 110. RR: 18. O2 saturation: 94%. Pain level now: 710. --23:01 Dayanna Jefferson R.N. 22:56. Oxygen administered by nasal cannula at 2 liters. --23:02 Dayanna Jefferson R.N. 22:58 09/11/16. BP: 120/74. HR: 113. RR: 18. O2 saturation: 94% on room air. Pain level now: 6/10. --23:02 Dayanna Jefferson R.N. 22:53 09/11/2016 Nitroglycerin SL Tablets 0.4 mg given. Allergies verified and confirmed 5 rights. --23:03 Dayanna Jefferson R.N. 22:54 09/11/2016 Started bag #1 1000 mL IV Fluids IV NS (Saline); at 1000 mL/hr via site #1 via IV pump. Allergies verified and confirmed 5 rights. IV patency established. IV site checked: no pain, redness, or swelling. IV flushed thoroughly pre- and post-medication administration. --23:04 Dayanna Jefferson R.N. 22:58 09/11/2016 Nitroglycerin SL Tablets 0.4 mg given. Allergies verified and confirmed 5 rights. --23:03 Dayanna Jefferson R.N. ( pt states pain is worse (headache now). does not want more Nitroglycerine.). --23:08 Dayanna Jefferson R.N. 23:10 09/11/2016 Dilaudid (HYDROmorphone HCl PF) IVP 1 mg given over 90 second(s) via site #1. Allergies verified, confirmed 5 rights and sedative warning given to the patient. IV patency established. IV site checked: no pain, redness, or swelling. IV flushed thoroughly pre- and post-medication administration. IVP given by RN. --23:13 Dayanna Jefferson R.N. 23:10 09/11/16. BP: 108/65. HR: 104. RR: 17 (regular and unlabored). O2 saturation: 98% on nasal cannula at 2 liters/minute. Pain level now: 08/24. --23:14 Dayanna Jefferson R.N. ( Assisted pt up to bathroom via wheel chair.). --23:32 Dayanna Jefferson R.N. 23:40. 2 liters by nasal cannula reapplied. security monitor, pulse oximeter and NIBP monitor placed on patient; monitor alarms on (placed back on monitors). ( returns from restroom via wheelchair). --23:43 Dayanna Jefferson R.N. 23:43 09/11/16. BP: 136/75. HR: 100. RR: 17 (regular and unlabored). O2 saturation: 99% on nasal cannula at 2 liters/minute. --23:44 Dayanna Jefferson R.N. 23:45 09/11/2016 Site #2 started via IV in the right forearm with an 20g angiocath, with aseptic technique and good blood return; one attempt (IV fluids moved to this site. Site started for CTA). --23:50 Chris Fernandez R.N. 23:54 09/11/2016 IV Fluids IV NS Discontinued: bag #1 completed. Total amount infused: 1000 mL. IV patency established. IV site checked: no pain, redness, or swelling. IV flushed thoroughly. --23:59 Dayanna Jefferson R.N. Patient transported to CT by stretcher with tech. (00:00). --00:00 Dayanna Jefferson R.N. Patient returned from CT by stretcher with tech. (00:20). --00:21 Dayanna Jefferson R.N. 00:32 09/12/2016 Dilaudid (HYDROmorphone HCl PF) IVP 2 mg given diluted in NS 10mL over 90 second(s) via site #2. Allergies verified, confirmed 5 rights and sedative warning given to the patient. IV patency established. IV site checked: no pain, redness, or swelling. IV flushed thoroughly pre- and post-medication administration. IVP given by RN. --00:34 Dayanna Jefferson R.N. 00:34 09/12/16. BP: 106/67. HR: 99. RR: 16. O2 saturation: 97% on nasal cannula at 2 liters/minute. --00:35 Dayanna Jefferson R.N. 00:45 09/12/2016 Aspirin PO Tablets 325 mg given. Allergies verified and confirmed 5 rights. --00:48 Dayanna Jefferson R.N. 02:00- Dr Rowan in with pt. --02:11 Dayanna Jefferson R.N. 02:11 09/12/16. BP: 129/77. HR: 98. RR: 16. O2 saturation: 98% on nasal cannula at 2 liters/minute. --02:12 Dayanna Jefferson R.N. DISPOSITION / DISCHARGE 02:30 09/12/16. BP: 112/71. HR: 102. RR: 16 (regular and unlabored). O2 saturation: 96% on nasal cannula at 2 liters/minute. --02:30 Dayanna Jefferson R.N. Report was given to a nurse via a phone call. All questions were answered. Report was acknowledged. --02:35 Dayanna Jefferson R.N. 02:35 09/12/2016 Site #[address] upon admission; flushes easily. --02:35 Dayanna Jefferson R.N. 02:36 09/12/2016 Site #[address] upon admission; flushes easily. --02:36 Dayanna Jefferson R.N. Transported via stretcher by nurse with IV and O2. --02:36 Dayanna Jefferson R.N. Departure time: 02:36. --02:36 Dayanna Jefferson R.N. Locked/Released at 09/12/2016 2:36 by Dayanna Jefferson R.N.
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
[2016-09-12] MEDS ORDERED: CYMBALTA60 MG PO (03:17)
[2016-09-12] MEDS ORDERED: LANTUS SOL100 UNITS/ SC ×2 (03:19→03:20)
[2016-09-12] MEDS ORDERED: COZAAR25 MG PO (03:21)
[2016-09-12] MEDS ORDERED: METFORMIN HCL500 MG PO (03:22)
[2016-09-12] MEDS ORDERED: METOPROLOL SUCC25 MG PO (03:23)
[2016-09-12] MEDS ORDERED: NOVOLOG PE100 UNITS/ SC (03:24)
[2016-09-12] MEDS ORDERED: ORPHENADRINE C100 M1 PO (03:25)
[2016-09-12] MEDS ORDERED: PANTOPRAZOLE SO40 MG PO (03:26)
[2016-09-12] MEDS ORDERED: PRAVASTATIN SOD40 MG PO (03:27)
[2016-09-12] MEDS ORDERED: TRAZODONE HCL50 MG PO (03:28)
[2016-09-12] MEDS ORDERED: MULTIPLE VITAMIN PO (03:29)
[2016-09-12] MEDS ORDERED: VENLAFAXINE HCL25 MG PO (03:29)
[2016-09-12 04:00] VITALS: BP 121/73
--- NOTE | 2016-09-12 04:15 | NUR ---
Admitted with chest pain which had started after having dinner last night. She is for TELE and will need ISO precaution as she had Hx of MRSA.
--- NOTE | 2016-09-12 04:39 | ED DISCHARGE INSTRUCTIONS ---
Patient: SIENNA BORRERO General Instructions [facility] VisitID: [id number] [address] [place] [address] 41y, F Registration Date/Time: 09/11/2016 Precordial chest pain characterized as "discomfort" and "pressure". (Electronically signed by Swetha Gomes MD 09/12/2016 4:38)
--- NOTE | 2016-09-12 04:39 | ED MED RECONCILIATION SUMMARY ---
Patient: SIENNA BORRERO Medication Reconciliation Report [facility] VisitID: [id number] [address] [place] [address] 41y, F Registration Date/Time: 09/11/2016 Weight: 130.6 kg Height/Length: 66 in. BMI: 46.5 ALLERGIES: Amitriptyline, Ibuprofen, Lyrica, Sulfa Antibiotics, Vicodin The patient's Home Medications are listed below: THE FOLLOWING MEDICATIONS NEED TO BE RECONCILED: Control Pills 1 pill, at bedtime Cymbalta Oral 60mg, twice daily Lantus Subcutaneous 30 units, at bedtime, up to 70 units split Am and PM Losartan Potassium Oral (25 mg) 1 tablet, daily MetFORMIN HCl Oral (500 mg) 2 tablets, 2x a day Metoprolol Tartrate Oral 25 mg, twice daily NovoLOG Subcutaneous, sliding scale Orphenadrine 100mg, 2x a day Pantoprazole Sodium Oral 40 mg, 2x a day Pravastatin Sodium Oral, 2 at bedtime TraZODone HCl Oral (300 mg) 1 tablet, at bedtime Venlafaxine HCl Oral (75 mg) 1 tablet, daily Vit d Vits multi The source(s) of the original Home Medication information: Not obtained. The following Medications were given to the patient in the Emergency Department: Zofran [IVP] IVP 4 mg, administered: 09/11/2016 10:05:00 PM Nitroglycerin [SL] SL 0.4 mg, administered: 09/11/2016 10:53:00 PM Nitroglycerin [SL] SL 0.4 mg, administered: 09/11/2016 10:58:00 PM IV NS IV Fluids bolus 0, then 1000 mL/hr, administered: 09/11/2016 10:54:00 PM Dilaudid [IVP] IVP 1 mg, administered: 09/11/2016 11:10:00 PM Dilaudid [IVP] IVP 2 mg diluted in NS 10 mL, administered: 09/12/2016 12:32:00 AM Aspirin [PO] PO 325 mg, administered: 09/12/2016 12:45:00 AM The following Medications were prescribed to the patient: None.
--- NOTE | 2016-09-12 04:39 | ED MED RECONCILIATION SUMMARY ---
Patient: SIENNA BORRERO Medication Reconciliation Report [facility] VisitID: [id number] [address] [place] [address] 41y, F Registration Date/Time: 09/11/2016 Weight: 130.6 kg Height/Length: 66 in. BMI: 46.5 ALLERGIES: Amitriptyline, Ibuprofen, Lyrica, Sulfa Antibiotics, Vicodin The patient's Home Medications are listed below: THE FOLLOWING MEDICATIONS NEED TO BE RECONCILED: Control Pills 1 pill, at bedtime Cymbalta Oral 60mg, twice daily Lantus Subcutaneous 30 units, at bedtime, up to 70 units split Am and PM Losartan Potassium Oral (25 mg) 1 tablet, daily MetFORMIN HCl Oral (500 mg) 2 tablets, 2x a day Metoprolol Tartrate Oral 25 mg, twice daily NovoLOG Subcutaneous, sliding scale Orphenadrine 100mg, 2x a day Pantoprazole Sodium Oral 40 mg, 2x a day Pravastatin Sodium Oral, 2 at bedtime TraZODone HCl Oral (300 mg) 1 tablet, at bedtime Venlafaxine HCl Oral (75 mg) 1 tablet, daily Vit d Vits multi The source(s) of the original Home Medication information: Not obtained. The following Medications were given to the patient in the Emergency Department: Zofran [IVP] IVP 4 mg, administered: 09/11/2016 10:05:00 PM Nitroglycerin [SL] SL 0.4 mg, administered: 09/11/2016 10:53:00 PM Nitroglycerin [SL] SL 0.4 mg, administered: 09/11/2016 10:58:00 PM IV NS IV Fluids bolus 0, then 1000 mL/hr, administered: 09/11/2016 10:54:00 PM Dilaudid [IVP] IVP 1 mg, administered: 09/11/2016 11:10:00 PM Dilaudid [IVP] IVP 2 mg diluted in NS 10 mL, administered: 09/12/2016 12:32:00 AM Aspirin [PO] PO 325 mg, administered: 09/12/2016 12:45:00 AM The following Medications were prescribed to the patient: None.
--- NOTE | 2016-09-12 04:39 | ED MAR SUMMARY ---
..... Medication Administration Record [facility] [address] [place] [address] Patient: SIENNA BORRERO Visit ID: [id number] 41y, F Weight: 130.6 kg Height/Length: 66 in BMI: 46.5 ALLERGIES: Amitriptyline, Ibuprofen, Vicodin, Sulfa Antibiotics, Lyrica Given 22:05 09/11/2016 Dayanna Jefferson R.N. Medication Administered: ZOFRAN [IVP] (ONDANSETRON HCL), Dose: 4 mg IVP over 1 minute(s), Site: #1 left hand. Medication Ordered: Zofran IV 4 mg (NOW). Given 22:53 09/11/2016 Dayanna Jefferson R.N. Medication Administered: NITROGLYCERIN [SL], Dose: 0.4 mg Tablets SL. Medication Ordered: NitroGLYCERIN SL 0.4 mg (x3 PRN Chest Pain). Start 22:54 09/11/2016 Dayanna Jefferson R.N., Stop 23:54 09/11/2016 Dayanna Jefferson R.N. Medication Administered: IV NS (SALINE), Dose: IV Fluids, Rate: 1000 mL/hr, Dispensed: 1000 mL bag, Site: #1 left hand. Medication Ordered: IV NS : initial bolus 1000 mL (1000 mL/hr), then none - (NOW). Given 22:58 09/11/2016 Dayanna Jefferson R.N. Medication Administered: NITROGLYCERIN [SL], Dose: 0.4 mg Tablets SL. Medication Ordered: NitroGLYCERIN SL 0.4 mg (x3 PRN Chest Pain). Given 23:10 09/11/2016 Dayanna Jefferson R.N. Medication Administered: DILAUDID [IVP] (HYDROMORPHONE HCL PF), Dose: 1 mg IVP over 90 second(s), Site: #1 left hand. Medication Ordered: Dilaudid IV 1 mg (HIGH ALERT MEDICATION, NOW). Given 00:32 09/12/2016 Dayanna Jefferson R.N. Medication Administered: DILAUDID [IVP] (HYDROMORPHONE HCL PF), Dose: 2 mg IVP over 90 second(s), In: NS 10 mL, Site: #2 right forearm. Medication Ordered: Dilaudid IV 2 mg (HIGH ALERT MEDICATION, NOW). Given 00:45 09/12/2016 aDyanna Jefferson R.N. Medication Administered: ASPIRIN [PO], Dose: 325 mg Tablets PO. Medication Ordered: Aspirin PO 325 mg (Do not crush or chew, NOW).
--- NOTE | 2016-09-12 04:39 | ED DISCHARGE INSTRUCTIONS ---
Patient: SIENNA BORRERO General Instructions [facility] VisitID: [id number] [address] [place] [address] 41y, F Registration Date/Time: 09/11/2016 Precordial chest pain characterized as "discomfort" and "pressure". (Electronically signed by Swetha Gomes MD 09/12/2016 4:38)
--- NOTE | 2016-09-12 04:39 | ED MAR SUMMARY ---
..... Medication Administration Record [facility] [address] [place] [address] Patient: SIENNA BORRERO Visit ID: [id number] 41y, F Weight: 130.6 kg Height/Length: 66 in BMI: 46.5 ALLERGIES: Amitriptyline, Ibuprofen, Vicodin, Sulfa Antibiotics, Lyrica Given 22:05 09/11/2016 Dayanna Jefferson R.N. Medication Administered: ZOFRAN [IVP] (ONDANSETRON HCL), Dose: 4 mg IVP over 1 minute(s), Site: #1 left hand. Medication Ordered: Zofran IV 4 mg (NOW). Given 22:53 09/11/2016 Dayanna Jefferson R.N. Medication Administered: NITROGLYCERIN [SL], Dose: 0.4 mg Tablets SL. Medication Ordered: NitroGLYCERIN SL 0.4 mg (x3 PRN Chest Pain). Start 22:54 09/11/2016 Dayanna Jefferson R.N., Stop 23:54 09/11/2016 Dayanna Jefferson R.N. Medication Administered: IV NS (SALINE), Dose: IV Fluids, Rate: 1000 mL/hr, Dispensed: 1000 mL bag, Site: #1 left hand. Medication Ordered: IV NS : initial bolus 1000 mL (1000 mL/hr), then none - (NOW). Given 22:58 09/11/2016 Dayanna Jefferson R.N. Medication Administered: NITROGLYCERIN [SL], Dose: 0.4 mg Tablets SL. Medication Ordered: NitroGLYCERIN SL 0.4 mg (x3 PRN Chest Pain). Given 23:10 09/11/2016 Dayanna Jefferson R.N. Medication Administered: DILAUDID [IVP] (HYDROMORPHONE HCL PF), Dose: 1 mg IVP over 90 second(s), Site: #1 left hand. Medication Ordered: Dilaudid IV 1 mg (HIGH ALERT MEDICATION, NOW). Given 00:32 09/12/2016 Dayanna Jefferson R.N. Medication Administered: DILAUDID [IVP] (HYDROMORPHONE HCL PF), Dose: 2 mg IVP over 90 second(s), In: NS 10 mL, Site: #2 right forearm. Medication Ordered: Dilaudid IV 2 mg (HIGH ALERT MEDICATION, NOW). Given 00:45 09/12/2016 Dayanna Jefferson R.N. Medication Administered: ASPIRIN [PO], Dose: 325 mg Tablets PO. Medication Ordered: Aspirin PO 325 mg (Do not crush or chew, NOW).
--- NOTE | 2016-09-12 06:24 | DIAGNOSTIC IMAGING REPORT ---
PROCEDURE: CTA THORAX WITH CONTRAST INDICATION: Chest pain. Hypertension. Diabetes. TECHNIQUE: 95 ml of Isovue 370 was injected intravenously and axial images were obtained of the entire thorax with 3D sagittal and coronal MIP reconstructions. Preliminary report provided by Kai Alexander MD ([facility]). COMPARISON: Comparison is made to chest x-ray on 06/02/2013, and CT abdomen pelvis (02/26/2015). FINDINGS: Pulmonary vessels are poorly opacified, and while there are no large central emboli, subtle peripheral emboli cannot be excluded. Thoracic aorta and great vessels are normal. No evidence of aneurysm or dissection. Lungs are clear Heart and mediastinum are normal. Thorax is normal. Portions of the upper abdomen are seen, and findings suggest fatty infiltration with mild hepatomegaly. Moderate ingested material in the stomach. IMPRESSION: 1. Suboptimal opacification of pulmonary vessels. While there are no large central pulmonary emboli, subtle peripheral emboli cannot be completely excluded. 2. Normal thoracic aorta and great vessels. No evidence of aneurysm or dissection. 3. Otherwise negative CT thorax. 4. Findings suggest mild fatty infiltration of the liver with mild hepatomegaly (liver partially visualized). 5. Moderate ingested material in the stomach (partially visualized). 6. Findings discussed with Dr. Swetha Gomes, and called to Dr. Jeremy Rowna. All CT scans at this facility use dose modulation, iterative reconstruction, and/or weight-based dosing when appropriate to reduce radiation dose to as low as reasonably achievable.
[2016-09-12 06:52] VITALS: BP 116/62
--- NOTE | 2016-09-12 08:45 | NUR ---
RECEIVED PT IN BED ON HIGH RIVAS'S POSITION, AWAKE, ALERT ORIENTED COHERERNT, COOPERATIVE. V/S TAKEN AND RECORDED. ASSESSMENT DONE. PT COMPLAINT OF " CHEST TIGHTNESS CHRISTAL WHEN I COUGH" PT STATES. DENIES CHEST PAIN AT THIS TIME. DUE MEDS GIVEN. ENC PT TO AMBULATE. NEEDS ATTENDED.
[2016-09-12 10:20] VITALS: BP 107/58
--- NOTE | 2016-09-12 14:13 | NUR ---
PT IS BACK IN BED, ASLEEP BUT AROUSABLE.
[2016-09-12 16:23] VITALS: BP 135/87
[2016-09-12] MEDS ORDERED: CELEBREX200 MG PO (17:25)
--- NOTE | 2016-09-12 17:28 | Provider's Discharge Care Plan ---
Problem, Goal, Plan Problem List 1. Costochondritis, acute Goals: Improve disease control, Prevent disease progress Instructions: Follow up as directed, Take meds as directed 2. Hypomagnesemia Goals: Improve disease control, Prevent disease progress Instructions: Follow up as directed, Take meds as directed 3. Chest pain Goals: Improve disease control, Prevent disease progress Instructions: Follow up as directed, Take meds as directed, Follow up in am for completion of stress test.
[2016-09-12] MEDS ORDERED: MAG6464 MG PO (17:29)
--- NOTE | 2016-09-12 17:33 | Discharge Summary ---
Discharge Summary Report Admit Date 09/12/16 Discharge Date 09/12/16 Admission Diagnosis 1. Chest pain R/O ACS 2. Diabetes Mellitus 3. Hypomagnesemia Discharge Diagnosis 1. Chest pain - ACS ruled out 2. Diabetes Mellitus 3. Hypomagnesemia 4. Costrochondritis Brief History The patient is a 41-year-old white female with a significant past medical history of type 2 diabetes mellitus, hypertension, obesity, degenerative disc disease, depression, gastroesophageal reflux, hyperlipidemia, insomnia, who presented to [facility] emergency department on the day of admission secondary to complaints of chest pain. [facility] ER evaluation was consistent with chest pain rule out ACS. Secondary to the above, the patient was admitted by Jeremy Rowan M.D. for further evaluation and treatment. Hospital Course The following problems and their management were noted during the patients hospitalization: 1. Chest pain - ACS ruled out The patient was admitted with a history of chest pain. She underwent serial troponin and ECG. These were inconsistent with myocardial ischemia/infarction. The patient subsequently underwent Exercise-Cardiolite stress which was noted to be normal without evidence of myocardial ischemia. Her CP was felt secondary to chest wall pain-Costochondritis. 2. Diabetes Mellitus Stable. Patient discharged on outpatient medical regiment. Will F/U with PCP 3. Hypomagnesemia Mild. IV/PO supplementation. Pt discharged on Mag 64 1 po bid 4. Costrochondritis See above. Pt discharged on Celebrex 200mg po bid x 5 days. Lab/Imaging Laboratory Tests 09/12 09/12 09/12 1214 [id number] Chemistry Plasma Magnesium (1.8 - 2.4 mg/dL) 2.3 Troponin (0.00 - 1.5 ng/mL) <0.05 <0.05 Triglycerides (30 - 200 mg/dL) 476 Cancelled Cholesterol (140 - 200 mg/dL) 159 Cancelled LDL Cholesterol, Calc (mg/dL) 38 Cancelled HDL Cholesterol (32 - 96 mg/dL) 26 Cancelled LDL/HDL Ratio 1.5 Cancelled Cholesterol/HDL Ratio 6.1 Cancelled Coronary Risk Interp (0.4 - 1.0) 0.6 Cancelled Hematology WBC (4.5 - 11.5 K/uL) 11.5 RBC (4.00 - 5.20 M/uL) 3.77 Hgb (12.0 - 16.0 gm/dL) 12.2 Hct (36.0 - 46.0 %) 36.3 MCV (80 - 100 fL) 96 MCH (26 - 34 pg) 32 RDW (11.6 - 14.8 %) 12.9 Neut % (Auto) (50 - 75 %) 63.4 Lymph % (Auto) (25 - 40 %) 27.8 [place] % (Auto) (3 - 14 %) 6.2 Eos % (Auto) (0 - 4 %) 2.2 Baso % (Auto) (0 - 2 %) 0.4 Plt Count, EDTA (150 - 400 K/uL) 273 PUBS MCHC (31 - 37 g/dL) 34 09/12 09/11 09/11 0001 2205 2205 Chemistry Plasma Sodium (136 - 145 mmol/L) 138 Plasma Potassium (3.5 - 5.1 mmol/L) 4.1 Plasma Chloride (98 - 107 mmol/L) 103 CO2 (Enzymatic) (21 - 32 mmol/L) 21 BUN (7 - 18 mg/dL) 13 Creatinine (0.6 - 1.3 mg/dL) 0.9 Est GFR ( Amer) (mL/min) >60 Est GFR (Non-Af Amer) (mL/min) >60 Glucose (70 - 110 mg/dL) 145 Hemoglobin A1c % (4.5 - 6.2 %) 6.2 Plasma Calcium (8.5 - 10.1 mg/dL) 10.0 Plasma Magnesium (1.8 - 2.4 mg/dL) 1.4 Total Bilirubin (0.0 - 1.0 mg/dL) 0.2 AST (15 - 37 U/L) 23 ALT (12 - 78 U/L) 30 Alkaline Phosphatase (46 - 116 U/L) 56 Creatine Kinase (24 - 260 U/L) 72 Troponin (0.00 - 1.5 ng/mL) <0.05 Total Protein (6.4 - 8.2 g/dL) 7.2 Albumin (3.3 - 5.0 g/dL) 3.6 Lipase (73 - 393 U/L) 120 Coagulation D-Dimer, Quantitative (0.27 - 0.52 ug/mLFEU) 0.10 Hematology WBC (4.5 - 11.5 K/uL) 12.6 RBC (4.00 - 5.20 M/uL) 4.08 Hgb (12.0 - 16.0 gm/dL) 13.1 Hct (36.0 - 46.0 %) 39.6 MCV (80 - 100 fL) 97 MCH (26 - 34 pg) 32 RDW (11.6 - 14.8 %) 12.7 Gran % (53 - 90 %) 67.7 Lymph % (Auto) (25 - 40 %) 26.6 [place] % (Auto) (3 - 14 %) 5.7 Plt Count, EDTA (150 - 400 K/uL) 275 PUBS MCHC (31 - 37 g/dL) 33 Urines Urine Color YELLOW Urine Appearance CLEAR Urine pH (5.0 - 8.0) 6.0 Ur Specific [place] (1.010 - 1.030) 1.010 Urine Protein (NEGATIVE) NEGATIVE Urine Ketones (NEGATIVE) NEGATIVE Urine Blood (NEGATIVE) NEGATIVE Urine Nitrite (NEGATIVE) NEGATIVE Urine Bilirubin (NEGATIVE) NEGATIVE Urine Urobilinogen (0.2 - 1.0 EU/dL) 0.2 Ur Leukocyte Esterase (NEGATIVE) NEGATIVE Urine RBC (0 - 1 rbc/hpf) 0-1 Urine WBC (0 - 1 wbc/hpf) 0-1 Ur Epithelial Cells (0 - 5 EPI/hpf) 0-1 Urine Bacteria (NONE SEEN) NONE SEEN Urine Glucose (NEGATIVE) NEGATIVE Urine Comment CULT NOT INDICATED Microbiology Date/Time Procedure - Status Source Growth 09/12 0730 MRSA Screen - RECD NASAL Stress Test-Nuclear Portion IMPRESSION: 1. No evidence for ischemia 2. Normal left ventricular size 3. Normal left ventricular function 4. Low risk study Dictated by: NAHOMY LIVINGSTON MD D: BENJAMIN;09/13/16 1913 Discharge Instructions/Meds For other recommendations regarding discharge diet, activity, followup, and discharge medications please see the patient's discharge instructions. Discharge condition: Fair, improved Greater than 30 min. was spent in the patient's discharge preparation including discharge interview and physical examination, progress note, discharge instructions, and discharge summary The patient was interviewed and examined on the day of discharge. E&M Codes Admit & Discharge: Comp/High/[id number]
--- NOTE | 2016-09-12 17:50 | NUR ---
PT WAS GIVEN ALL PAPERWORK AND THIS RN DESCRIBED EACH ITEM, ANSWERED QUESTIONS. SCRIPTS IN ENVELOPE. EDUCATED THAT HOME MAGNESIUM SUPPLEMENT DOES NOT CONTAIN CHLORIDE AND TO FILL SCRIPT. NO PAIN UPON D/C. IV REMOVED WIHTOUT ISSUE. TELE REMOVED. WILL HAVE STAFF MEMBER ESCORT TO ENTRANCE WHEN ARRIVES.
--- NOTE | 2016-09-13 19:13 | DIAGNOSTIC IMAGING REPORT ---
REFERRING PHYSICIAN/PROVIDER: Jeremy Rowan MD CONSULTING HOME SPECIALIST: Angel Lopez MD PROCEDURE PERFORMED: NM CARDIAC STRESS TEST INDICATION: cp Stress PORTION: Please see separate dictation Two day SESTAMIBI INTERPRETATION: On day one the patient underwent treadmill stress with 32 mCi of technetium 99m labeled sestamibi injected at peak exercise with SPECT tomography performed. On day two the rest portion was conducted with 31 mCi of technetium 99m labeled sestamibi with SPECT tomography performed. Rest stress images were then compared. The LV was seen to be normal in size. The LV was stressed exhibits no ischemic defects. There was evidence of breast attenuation noted. Computer assessed ejection fraction was 67% with normal contraction. T.i.d. was calculated at 0.9. The LV size was 104 ml in diastole and 34 ml in systole. IMPRESSION: 1. No evidence for ischemia 2. Normal left ventricular size 3. Normal left ventricular function 4. Low risk study
== END 2016-09-12 18:30 | disposition home or self-care (01) ==
LOC: ED SRH 21:50 → ACUTE2 SRH 09-12 01:20 → TRANS SRH 09-12 01:20 → ACUTE2 SRH 09-12 02:34
PROVIDERS: ADMIT Internal Medicine
PROC: 4A02XM4 Measurement of Cardiac Total Activity, External Approach (ICD-10-PCS; principal; 2016-09-12)
PROC: 3E033HZ Introduction of Radioactive Substance into Peripheral Vein, Percutaneous Approach (ICD-10-PCS; principal; 2016-09-12)
DX: M94.0 Chondrocostal junction syndrome [Tietze] (principal); E83.42 Hypomagnesemia; E11.9 Type 2 diabetes mellitus without complications; Z79.4 Long term (current) use of insulin; I10 Essential (primary) hypertension; E78.5 Hyperlipidemia, unspecified; K21.9 Gastro-esophageal reflux disease without esophagitis; F32.9 Major depressive disorder, single episode, unspecified
CPT/HCPCS: 29230; 29244; 29250; 29251; 29253; 29259; 29264; 90004; 90074; 90098; 90100; 90616; 91286; 91556; 92132; 92235; 92610; 92690; 92720; 95059